=== PATIENT | female | born 1950 | race Caucasian/White ===

== ENCOUNTER 2021-01-26 10:51 | Outpatient (REF) | payer MEDICARE, OTHER, SELFPAY ==
[2021-01-26 13:38] LABS: Creatinine Urine 62.39 mg/dL; Microalbum/Creatinine Ratio Ur 11.2 ug/mg cr
[2021-01-26 13:39] LABS: Estimated Average Glucose 114 mg/dL; Hemoglobin A1c % 5.6 %
[2021-01-26 13:42] LABS: Alanine Aminotransferase 17 U/L (0-31); Alkaline Phosphatase 55 U/L (39-117); Anion Gap 13 (12-20); Aspartate Amino Transferase 22 U/L (5-31); Bilirubin Total 0.6 mg/dL (0.0-1.0); Blood Urea Nitrogen 17 mg/dL (9-16); Calcium 8.9 mg/dL (8.4-10.2); Carbon Dioxide 23 mmol/L (22-29); Chloride 107 mmol/L (96-108); Cholesterol 177 mg/dL; Estimated Glomerular Filt Rate > 60; Glucose Fasting 101 mg/dL (60-99); HDL Cholesterol 42 mg/dL; LDL Cholesterol Calculated 104 mg/dl; Potassium 4.4 mmol/L (3.3-5.1); Sodium 139 mmol/L (135-145); Total Protein 6.7 g/dL (6.5-8.0); Triglycerides 159 mg/dL
== END 2021-01-26 10:52 | disposition home or self-care (01) ==
LOC: HO.MANLDS 10:51
PROVIDERS: PCP Internal Medicine; Visit Provider Internal Medicine
DX: E11.9 Type 2 diabetes mellitus without complications (principal)
CPT/HCPCS: 36415; 80053; 80061; 82043; 83036

== ENCOUNTER 2021-06-03 10:36 | Outpatient (REF) | payer MEDICARE, OTHER, SELFPAY ==
[2021-06-04 07:33] LABS: Estimated Average Glucose 117 mg/dL; Hemoglobin A1c % 5.7 %
== END 2021-06-03 10:37 | disposition home or self-care (01) ==
LOC: HO.MANLDS 10:36
PROVIDERS: PCP Internal Medicine; Visit Provider Internal Medicine
DX: E11.9 Type 2 diabetes mellitus without complications (principal)
CPT/HCPCS: 36415; 83036

== ENCOUNTER 2021-09-06 09:14 | Outpatient (REF) | payer MEDICARE, OTHER, SELFPAY ==
[2021-09-06 11:13] LABS: Alanine Aminotransferase 20 U/L (0-31); Albumin Level 4.2 g/dL (3.5-5.0); Alkaline Phosphatase 56 U/L (39-117); Anion Gap 11 (12-20); Aspartate Amino Transferase 22 U/L (5-31); Bilirubin Total 0.5 mg/dL (0.0-1.0); Blood Urea Nitrogen 14 mg/dL (9-16); Calcium 9.4 mg/dL (8.4-10.2); Carbon Dioxide 24 mmol/L (22-29); Chloride 109 mmol/L (96-108); Cholesterol 197 mg/dL; Estimated Glomerular Filt Rate 58; Glucose Fasting 113 mg/dL (60-99); HDL Cholesterol 45 mg/dL; LDL Cholesterol Calculated 118 mg/dl; Potassium 4.1 mmol/L (3.3-5.1); Sodium 140 mmol/L (135-145); Total Protein 7.3 g/dL (6.5-8.0); Triglycerides 173 mg/dL
[2021-09-06 11:20] LABS: Estimated Average Glucose 120 mg/dL; Hemoglobin A1c % 5.8 %
[2021-09-06 15:09] LABS: Creatinine Urine 93.69 mg/dL
== END 2021-09-06 09:15 | disposition home or self-care (01) ==
LOC: HO.MANLDS 09:14
PROVIDERS: PCP Internal Medicine; Visit Provider Internal Medicine
DX: E11.9 Type 2 diabetes mellitus without complications (principal)
CPT/HCPCS: 36415; 80053; 80061; 82043; 83036

== ENCOUNTER 2022-02-03 11:34 | Outpatient (REF) | payer MEDICARE, OTHER, SELFPAY ==
[2022-02-03 13:27] LABS: Estimated Average Glucose 111 mg/dL; Hemoglobin A1c % 5.5 %
[2022-02-03 13:32] LABS: Alanine Aminotransferase 19 U/L (0-31); Albumin Level 4.3 g/dL (3.5-5.0); Alkaline Phosphatase 59 U/L (39-117); Anion Gap 13 (12-20); Aspartate Amino Transferase 24 U/L (5-31); Bilirubin Total 0.5 mg/dL (0.0-1.0); Blood Urea Nitrogen 19 mg/dL (9-16); Calcium 9.3 mg/dL (8.4-10.2); Carbon Dioxide 22 mmol/L (22-29); Chloride 109 mmol/L (96-108); Cholesterol 190 mg/dL; Estimated Glomerular Filt Rate 49; Glucose Random 98 mg/dL (60-115); HDL Cholesterol 44 mg/dL; LDL Cholesterol Calculated 124 mg/dl; Potassium 4.6 mmol/L (3.3-5.1); Sodium 139 mmol/L (135-145); Total Protein 7.4 g/dL (6.5-8.0); Triglycerides 110 mg/dL
== END 2022-02-03 11:35 | disposition home or self-care (01) ==
LOC: HO.MANLDS 11:34
PROVIDERS: PCP Internal Medicine; Visit Provider Internal Medicine
DX: E11.9 Type 2 diabetes mellitus without complications (principal)
CPT/HCPCS: 36415; 80053; 80061; 83036

== ENCOUNTER 2022-05-31 08:57 | Outpatient (REF) | payer MEDICARE, OTHER, SELFPAY ==
[2022-05-31 11:38] LABS: Estimated Average Glucose 108 mg/dL; Hemoglobin A1c % 5.4 %
[2022-05-31 11:44] LABS: Alanine Aminotransferase 22 U/L (0-31); Albumin Level 4.2 g/dL (3.5-5.0); Alkaline Phosphatase 55 U/L (39-117); Anion Gap 15 (12-20); Aspartate Amino Transferase 27 U/L (5-31); Bilirubin Total 0.8 mg/dL (0.0-1.0); Blood Urea Nitrogen 22 mg/dL (9-16); Carbon Dioxide 25 mmol/L (22-29); Chloride 105 mmol/L (96-108); Cholesterol 198 mg/dL; Estimated Glomerular Filt Rate 48; Glucose Random 106 mg/dL (60-115); HDL Cholesterol 49 mg/dL; LDL Cholesterol Calculated 122 mg/dl; Potassium 4.4 mmol/L (3.3-5.1); Sodium 141 mmol/L (135-145); Total Protein 7.2 g/dL (6.5-8.0); Triglycerides 139 mg/dL
[2022-05-31 11:58] LABS: Creatinine Urine 76.03 mg/dL; Microalbumin Urine < 5.0 mg/L
== END 2022-05-31 08:58 | disposition home or self-care (01) ==
LOC: HO.MANLDS 08:57
PROVIDERS: Visit Provider Internal Medicine
DX: E11.9 Type 2 diabetes mellitus without complications (principal)
CPT/HCPCS: 36415; 80053; 80061; 82043; 83036

== ENCOUNTER 2022-09-05 11:27 | Outpatient (REF) | payer MEDICARE, OTHER, SELFPAY ==
[2022-09-05 16:01] LABS: Alanine Aminotransferase 19 U/L (0-31); Albumin Level 4.2 g/dL (3.5-5.0); Alkaline Phosphatase 57 U/L (39-117); Anion Gap 14 (12-20); Aspartate Amino Transferase 27 U/L (5-31); Bilirubin Total 0.7 mg/dL (0.0-1.0); Blood Urea Nitrogen 21 mg/dL (9-16); Calcium 9.5 mg/dL (8.4-10.2); Carbon Dioxide 23 mmol/L (22-29); Chloride 107 mmol/L (96-108); Cholesterol 188 mg/dL; Estimated Glomerular Filt Rate 57; Glucose Random 98 mg/dL (60-115); HDL Cholesterol 48 mg/dL; LDL Cholesterol Calculated 113 mg/dl; Potassium 4.5 mmol/L (3.3-5.1); Sodium 139 mmol/L (135-145); Total Protein 6.9 g/dL (6.5-8.0); Triglycerides 136 mg/dL
[2022-09-05 16:11] LABS: Estimated Average Glucose 111 mg/dL; Hemoglobin A1c % 5.5 %
== END 2022-09-05 11:28 | disposition home or self-care (01) ==
LOC: HO.MANLDS 11:27
PROVIDERS: Visit Provider Internal Medicine
DX: E11.9 Type 2 diabetes mellitus without complications (principal)
CPT/HCPCS: 36415; 80053; 80061; 83036

== ENCOUNTER 2022-11-22 10:27 | Outpatient (REF) | payer MEDICARE, OTHER, SELFPAY ==
[2022-11-22 13:21] LABS: Estimated Average Glucose 123 mg/dL; Hemoglobin A1c % 5.9 %
== END 2022-11-22 10:28 | disposition home or self-care (01) ==
LOC: HO.MANLDS 10:27
PROVIDERS: Visit Provider Internal Medicine
DX: E11.9 Type 2 diabetes mellitus without complications (principal)
CPT/HCPCS: 36415; 83036

== ENCOUNTER 2023-03-21 08:00 | Outpatient (REF) | payer MEDICARE, OTHER, SELFPAY | END 2023-03-21 08:01 | disposition home or self-care (01) | LOC: HO.MANLDS 08:00 | PROVIDERS: Visit Provider Internal Medicine | DX: E11.9 Type 2 diabetes mellitus without complications (principal) | CPT/HCPCS: 36415; 80053; 80061; 82043; 83036 ==

== ENCOUNTER 2023-09-12 09:31 | Outpatient (REF) | payer MEDICARE, OTHER, SELFPAY ==
[2023-09-12 13:40] LABS: Estimated Average Glucose 111 mg/dL; Hemoglobin A1C 123.1192 umol/L; Hemoglobin A1c % 5.5 % (<6.0)
[2023-09-12 16:23] LABS: Alanine Aminotransferase 17 U/L (0-31); Albumin Level 3.9 g/dL (3.5-5.0); Alkaline Phosphatase 48 U/L (39-117); Anion Gap 12 (12-20); Aspartate Amino Transferase 24 U/L (5-31); Bilirubin Total 0.3 mg/dL (0.0-1.0); Blood Urea Nitrogen 18 mg/dL (9-16); Calcium 9.1 mg/dL (8.4-10.2); Carbon Dioxide 22 mmol/L (22-29); Chloride 111 mmol/L (96-108); Cholesterol 194 mg/dL (<200); Estimated Glomerular Filt Rate > 60; Glucose Random 102 mg/dL (60-115); HDL Cholesterol 56 mg/dL (>40); LDL Cholesterol Calculated 122 mg/dL (<100); Potassium 4.5 mmol/L (3.3-5.1); Sodium 140 mmol/L (135-145); Total Protein 6.9 g/dL (6.5-8.0); Triglycerides 82 mg/dL (<150)
== END 2023-09-12 09:32 | disposition home or self-care (01) ==
LOC: HO.MANLDS 09:31
PROVIDERS: Visit Provider Internal Medicine
DX: E11.9 Type 2 diabetes mellitus without complications (principal)
CPT/HCPCS: 36415; 80053; 80061; 83036

== ENCOUNTER 2024-01-01 09:27 | Outpatient (REF) | payer MEDICARE, OTHER, SELFPAY ==
[2024-01-01 14:27] LABS: Estimated Average Glucose 120 mg/dL; Hemoglobin A1c % 5.8 % (<6.0)
[2024-01-01 15:21] LABS: Alanine Aminotransferase 16 U/L (0-31); Albumin Level 3.9 g/dL (3.5-5.0); Alkaline Phosphatase 57 U/L (39-117); Anion Gap 13 (12-20); Aspartate Amino Transferase 22 U/L (5-31); Bilirubin Total 0.5 mg/dL (0.0-1.0); Blood Urea Nitrogen 16 mg/dL (9-16); Calcium 9.3 mg/dL (8.4-10.2); Carbon Dioxide 24 mmol/L (22-29); Chloride 109 mmol/L (96-108); Cholesterol 213 mg/dL (<200); Estimated Glomerular Filt Rate 57; Glucose Random 105 mg/dL (60-115); HDL Cholesterol 49 mg/dL (>40); LDL Cholesterol Calculated 133 mg/dL (<100); Potassium 4.5 mmol/L (3.3-5.1); Sodium 141 mmol/L (135-145); Triglycerides 156 mg/dL (<150)
== END 2024-01-01 09:28 | disposition home or self-care (01) ==
LOC: HO.MANLDS 09:27
PROVIDERS: Visit Provider Internal Medicine
DX: E11.9 Type 2 diabetes mellitus without complications (principal)
CPT/HCPCS: 36415; 80053; 80061; 83036

== ENCOUNTER 2024-04-22 09:13 | Outpatient (REF) | payer MEDICARE, OTHER, SELFPAY ==
[2024-04-22 14:01] LABS: Estimated Average Glucose 117 mg/dL; Hemoglobin A1c % 5.7 % (<6.0)
== END 2024-04-22 09:14 | disposition home or self-care (01) ==
LOC: HO.MANLDS 09:13
PROVIDERS: Visit Provider Internal Medicine
DX: E11.9 Type 2 diabetes mellitus without complications (principal)
CPT/HCPCS: 36415; 83036

== ENCOUNTER 2024-07-14 08:01 | Outpatient (REF) | payer MEDICARE, OTHER, SELFPAY ==
[2024-07-14 13:50] LABS: MANUAL DIFF FLAG NO
[2024-07-14 13:59] LABS: Basophils Absolute Auto 0.1 X10*3/uL (0.0-0.2); Basophils Percent Auto 0.8 % (0-2); Eosinophils Absolute Auto 0.1 X10*3/uL (0.0-0.4); Hematocrit 39.7 % (37.0-47.0); Imm Gran Abs Auto 0.01 X10*3/uL (0.00-0.03); Imm Gran Pct Auto 0.2 % (0.0-0.4); Lymphocytes Absolute Auto 1.4 X10*3/uL (1.2-4.9); Mean Corpuscular HGB Conc 32.7 g/dl (31.0-35.0); Mean Corpuscular Hemoglobin 32.3 pg (27.0-33.0); Mean Corpuscular Volume 98.5 fL (80.0-98.0); Mean Platelet Volume 10.6 fL (9.4-12.3); Monocytes Absolute Auto 0.5 X10*3/uL (0.1-1.2); Monocytes Percent Auto 7.5 % (2-11); Neutrophils Absolute Auto 3.9 x10*3/uL (2.0-8.3); Neutrophils Percent Auto 65.5 % (45-73); Platelet Count 192 X10*3/uL (160-400); Red Blood Count 4.03 X10*6/uL (4.20-5.50); Red Cell Distribution Width 13.7 % (11.0-16.0)
[2024-07-14 14:11] LABS: Estimated Average Glucose 120 mg/dL; Hemoglobin A1C 134.4986 umol/L; Hemoglobin A1c % 5.8 % (<6.0); Total Hemoglobin (HGBA1C) 3352.5407 umol/L
[2024-07-14 14:17] LABS: Alanine Aminotransferase 16 U/L (0-31); Albumin Level 3.9 g/dL (3.5-5.0); Alkaline Phosphatase 50 U/L (39-117); Anion Gap 12 (12-20); Aspartate Amino Transferase 32 U/L (5-31); Bilirubin Total 0.4 mg/dL (0.0-1.0); Blood Urea Nitrogen 19 mg/dL (9-16); Calcium 9.5 mg/dL (8.4-10.2); Carbon Dioxide 24 mmol/L (22-29); Chloride 108 mmol/L (96-108); Cholesterol 190 mg/dL (<200); Estimated Glomerular Filt Rate 59; Glucose Random 119 mg/dL (60-115); HDL Cholesterol 45 mg/dL (>40); LDL Cholesterol Calculated 114 mg/dL (<100); Potassium 4.2 mmol/L (3.3-5.1); Sodium 140 mmol/L (135-145); Total Protein 6.7 g/dL (6.5-8.0); Triglycerides 157 mg/dL (<150)
== END 2024-07-14 08:02 | disposition home or self-care (01) ==
LOC: HO.MANLDS 08:01
PROVIDERS: Visit Provider Internal Medicine
DX: E11.9 Type 2 diabetes mellitus without complications (principal); E78.00 Pure hypercholesterolemia, unspecified
CPT/HCPCS: 36415; 80053; 80061; 83036; 85025

== ENCOUNTER 2024-10-22 10:26 | Outpatient (REF) | payer MEDICARE, OTHER, SELFPAY ==
--- OUTSIDE RECORDS SUMMARY | 2024-10-22 11:23 | XMS_ITS | Clinical Summary ---
Author Organization [facility] Address [address] [place] [address] Care Team Providers Care Clinical Genetics Laboratory Chief Name Role Phone Armin Rueda Primary Care Provider [phone] Allergies Active Allergy Reactions Criticality Noted Date Comments Lqkyqfo-Ejm-Ujk Reductase Inhibitors Muscle Pain,Other (see comments) Medium 04/26/2024 Pt states she gets sciatica pain down her legs Medications lisinopriL (PRINIVIL,ZESTRI L) 40 mg tablet Take 40 mg by mouth daily. Active metFORMIN (GLUCOPHAGE) 1,000 mg tablet Take 2,000 mg by mouth nightly. Active cetirizine (ZyrTEC) 10 mg capsule capsule Take by oral route. Active Ozempic 1 mg/dose (4 mg/3 mL) pen injector Inject 1 mg under the skin once a week. Active metoprolol tartrate (LOPRESSOR) 50 mg tablet Take 1 tablet by mouth 2 times daily. Active rivaroxaban (XARELTO) 20 mg tablet Take 1 tablet (20 mg total) by mouth once a day. 90 tablet 3 05/26/2024 Active Active Problems Problem Noted Date Diagnosed Date Rheumatic fever 05/26/2024 Paroxysmal atrial fibrillation 01/23/2024 Type 2 diabetes mellitus without complication (C MS/HCC) 03/27/2023 Sleep apnea 06/14/2021 Positive colorectal cancer screening using Colog uard test 09/08/2020 Spinal stenosis of lumbar region 12/24/2018 Hypercholesterolemia 08/27/2018 Hypertensive disorder 05/01/2018 Encounters Date Type Department Care Team Description 08/13/2024 9:56 AM EST - 08/13/2024 11:59 PM EST Hospital Encounter [facility] Cardiac Ultrasound [address] [place] [address] Nazia Moore MD Paroxysmal atrial fibrillation (HCC) Discharge Disposition: Home or Self Care (01) from Last 3 Months Social History Tobacco Use Types Packs/Day Years Used Date Smoking Tobacco: Never Smokeless Tobacco: Never Alcohol Use Standard Drinks/Week Comments Never 0 (1 standard drink = 0.6 oz pur e alcohol) Comments No Sex and Gender Information Value Date Recorded Sex Assigned at My sex is not list ed (please specify) 08/12/2024 12:06 PM EST Legal Sex Female 8:28 AM EDT Gender Identity Female 01/21/2024 4:15 PM EDT Sexual Orientation Straight 08/12/2024 12 :06 PM EST Last Filed Vital Signs Vital Sign Reading Time Taken Comments Blood Pressure 164/84 05/26/2024 10:31 AM EDT Pulse 82 05/26/2024 10:31 AM EDT Temperature 36.8 ??C (98.2 ??F) 01/21/2024 6:09 PM ED T Respiratory Rate 18 05/26/2024 10:31 AM EDT Oxygen Saturation 94% 05/26/2024 10:31 AM EDT Inhaled Oxygen Concentration - - Weight 117.5 kg (259 lb) 08/13/2024 9:59 AM EST Height 172.7 cm (5' 8 ) 08/13/2024 9:59 AM EST Body Mass Index 39.38 08/13/2024 9:59 AM EST Plan of Treatment Upcoming Encounters Date Type Department Care Team (Late st Contact Info) Description 07/06/2025 11:20 AM EDT Follow-Up [facility] 4th floor Cardiology Medicine [address] [place] [address] Supervisor Hand Silvering: Nazia Hurst MD [address] [place] [address] Health Maintenance Due Date Last Done Comments Hepatitis C Screening 1950 Ophthalmology Exam 1958 Osteoporosis Screening 1998 Zoster Vaccines (2 of 3) 11/11/2013 09/16/2013 RSV Vaccine (60+ years old and patients) (1 - 1-dose 75+ series) 2023 Hemoglobin A1C 12/27/2023 06/27/2023, 09/18, 09/28/2016, Additional history exists COVID-19 Vaccine ( season) 2024 07/29/2022, 12/16/2021, 06/24/2021, Additional history exists Influenza Vaccine (#1) 2024 , 06/22/2022, 07/01/2021, Additional history exists Urine Microalbumin 06/27/2024 06/27/2023 Alcohol/Substance Use Screening 09/17/2024 Depression Screening and Follow-Up 09/17/2024 Health Care Proxy Review 09/17/2024 Social Drivers of Health Annual Screening 09/17/2024 Basic Metabolic Panel 01/20/2025 01/21/2024 , 06/27/2023, 09/28/2016 DTaP,Tdap,and Td Vaccines (2 - Td or Tdap) 10/20/2025 10/20/2015 Colonoscopy 01/27/2026 01/27/2021, 01/15, 01/27/2021, Additional history exists Mammogram Discontinued 05/31/2007 Pneumococcal Vaccine: 65+ Years Completed 04/10/2017, 03/05/2015 Hepatitis B Vaccines Aged Out No long er eligible based on patient's age to complete this topic Procedures * Due to [place] state law, this organization might not be sharing negative HIV tests. Procedure Name Priority Date/Time Associated Diagnosis Comments TRANSTHORACIC ECHO (TTE) COMPLETE Routine 08/13/2024 10:40 AM EST Paroxysmal atrial fibrillation (HCC) BASIC METABOLIC PANEL STAT 01/21/2024 12:10 PM EDT COLONOSCOPY 01/27/2021 HEMOGLOBIN A1C Routine 09/28/2016 9:07 AM EST ROZINA BILATERAL SCREENING DIGITAL MAMMOGRAM Routine 05/31/2007 2:03 PM EDT from Last 3 Months or Most Recently Relevant to Health Maintenance Results * Due to [place] state law, this organization might not be sharing negative HIV tests. * TRANSTHORACIC ECHO (TTE) COMPLETE (08/13/2024 10:40 AM EST) BSA 2.37 m2 LVIDD 4.7 cm LVIDS 2.7 cm IVS 0.7 cm LVOT diameter 2.3 cm LVOT area 4.15 cm2 Relative Wall Thickness 0.39 PW 0.9 cm LV Mass Index 51 g/m2 MV Peak E Mariano 0.92 m/s MV avg E/e' 11.41 MV Peak A Mariano 1.44 m/s E/A ratio 0.60 Lateral e' 0.09 m/s E wave deceleration time 215.0 msec Septal e' 0.07 m/s MV E/E' Tissue Velocity Lateral 10.53 LA Volume Index 37 mL/m2 MV E/e' septal 12.45 LVOT peak mariano 0.98 m/s LVOT stroke volume 97 cm3 LV stroke vol index 40.7 mL/m2 TAPSE 2.2 cm LVOT peak VTI 24.13 cm Ascending aorta 3.0 cm Ao-asc Z score -1.17 IVC proximal 1.8 cm LV ED Post Wall 0.90 LV ES Dimension 2.70 LV ED Dimension 4.70 Aortic Valve Diam 2.3 cm RIGHT ATRIAL PRESSURE 3 mmHg Sinus 3.4 cm Aortic Root Z-score -0.44 Dummy BSA 2.28 LV mass 121 EF 74 Anatomical Region Laterality Modality Heart Echocardiography Narrative 08/13/2024 11:34 AM EST ?Normal left ventricular size and systolic function, LVEF 60%. ?Mildly dilated left atrium. ?No significant valvular disease identified. Left Ventricle The left ventricle size is normal. Normal left ventricular wall thickness. No segmental wall motion abnormalities detected, although this possibility cannot be fully excluded based on the images available. Normal left ventricular systolic function. Left ventricular ejection fraction is in the normal range with visually estimated LVEF 60%. Unable to assess left ventricular diastolic function due to conflicting data. Right Ventricle Right ventricle size is normal. Normal right ventricular systolic function. TAPSE is normal (>=1.7 cm). Tissue Doppler peak systolic velocity is normal (>9.5 cm/s). Left Atrium Left atrium is mildly dilated. Right Atrium Right atrium is normal in size. IVC/SVC IVC diameter is less than or equal to 21 mm and decreases greater than 50% during inspiration; therefore the estimated right atrial pressure is normal (~3 mmHg). Mitral Valve Mildly thickened mitral leaflets. Mild mitral annular calcification. Trace mitral regurgitation. No mitral stenosis. Tricuspid Valve Tricuspid valve structure is normal. Trace tricuspid regurgitation. No tricuspid stenosis. Aortic Valve Aortic valve not well visualized. No aortic regurgitation. No aortic stenosis. Pulmonic Valve Pulmonic valve not well visualized. Trace pulmonic regurgitation. No pulmonic stenosis. Ascending Aorta The ascending aorta is normal. Pericardium There is prominent pericardial fat. No pericardial effusion. Pulmonary Artery TR jet was inadequate to estimate pulmonary artery pressure. Atrial Septum No interatrial shunt detected by color flow Doppler. Ventricular Septum Ventricular septum is intact. Normal septal motion. Study Details A complete echo was performed using 2D imaging, color flow Doppler and complete spectral Doppler. During the study the apical, parasternal, subcostal and suprasternal view was captured. Overall the study quality was good. The study was technically difficult. The study was difficult due to patient's body habitus. STRESS ECHO OVERALL FINDINGS No significant valvular disease identified. Wall Scoring Baseline Score Index: 1.00 The left ventricular wall motion is normal. Nazia Moore MD CV ECHO PROCEDURES Fin al Result * (ABNORMAL) Basic Metabolic Panel (01/21/2024 12:10 PM EDT) NA 140 135 - 145 mmol/L 01/21/2024 1:03 PM EDT [facility] K 4.1 3.5 - 5.3 mmol/L 01/21/2024 1:03 PM EDT [facility] Cl 107 97 - 110 mmol/L 01/21/2024 1:03 PM EDT [facility] CO2 25 24 - 32 mmol/L 01/21/2024 1:03 PM EDT [facility] BUN 19 7 - 23 mg/dL 01/21/2024 1:03 PM EDT [facility] Creatinine 1.25(H) 0.50 - 1.20 mg/dL 01/21/2024 1:03 PM EDT [facility] Glucose 147(H) 70 - 99 mg/dL 01/21/2024 1:03 PM EDT [facility] Calcium 8.6(L) 8.7 - 10.7 mg/dL 01/21/2024 1:03 PM EDT [facility] [employer] [employer] [facility] Anion Gap 8 5 - 15 01/21/2024 1:03 PM EDT [facility] eGFR 45(L) >=60 mL/min/1 .73m2 01/21/2024 1:03 PM EDT [facility] Comment:The estimated glomer ular filtration rate (eGFR) is calculated using a new formula developed by the NKF-ASN task force to eliminate race-based correction factors. The new formula uses serum/plasma creatinine, age, and gender to determine eGFR. A value below 60mls/min might indicate kidney disease and will be flagged. For additional information, see Quinton et al, Am J Kidney Dis. 2021;79(2):268- 288, A Unifying Approach for GFR estimation: Recommendations of the NKF-ASN Task Force on Reassessing the Inclusion of Race in Diagnosing Kidney Disease . Blood Structure of peripheral vein / Unknown Venipuncture / Unknown 01/21/2024 12:10 PM EDT 01/21/2024 12:24 PM EDT us Protocol Unv Adult Treatment MD LAB BLOOD ORDERA BLES Final Result [facility] [address] [place] [address], [place] * COLONOSCOPY (01/27/2021) Narrative Procedure Note Roberto Garcia MD - 01/27/2021 12:33 PM EDT Gastroenterology Patient Name: Bren Urrutia Procedure Date: 01/27/2021 12:33 PM Date of : 1950 Admit Type: Outpatient Age: 70 Room: [place] [address] Gender: Female Note Status: Finalized Attending MD: Roberto Garcia MD Procedure: Colonoscopy Indications: Positive Cologuard test Comorbidities Providers: Roberto Garcia MD Referring MD: Armin Rueda MD (Referring MD) Requesting Provider: Medicines: Monitored Anesthesia Care Complications: No immediate complications. Estimated Blood Loss: None. Procedure: Pre-Anesthesia Assessment: - Prior to the procedure, a History and Physical was performed, and patient medications, allergies and sensitivities were reviewed. The patient's tolerance of previous anesthesia was reviewed. - The risks and benefits of the procedure and thesedation options and risks were discussed with the patient. All questions were answered and informed consent wasobtained. - Patient identification and proposed procedure were verified prior to the procedure by the physician, the nurse, the professor sculpture and the analytical technician. Theprocedure was verified in the procedure room. After I obtained informed consent, the scope was passed under direct vision. Throughout the procedure, the patient's blood pressure, pulse, and oxygen saturations were monitored continuously. The Colonoscope was introduced through the anus and advanced to the cecum, identified by appendiceal orifice and ileocecal valve.The colonoscopy was extremely difficult due to a redundant colon, significant looping and a tortuous colon. Successful completion of the procedure was aided byusing manual pressure. Findings: The perianal and digital rectal examinations were normal. A 2 mm, non-bleeding polyp was found in the ascending colon. Thepolyp was sessile. The polyp was removed with a cold biopsy forceps.Resection and retrieval were complete. A 3 mm, non-bleeding polyp was found in the rectum. The polyp was sessile. The polyp was removed with a cold snare. Resection and retrieval were complete. Multiple small-mouthed diverticula were found in the left colon. Internal hemorrhoids were found during retroflexion. The hemorrhoids were medium-sized. The exam was otherwise without abnormality on direct and retroflexion views. Impression: - One 2 mm, non-bleeding polyp in the ascending colon, removed with a cold biopsy forceps. Resected andretrieved. - One 3 mm, non-bleeding polyp in the rectum, removedwith a cold snare. Resected and retrieved. - Diverticulosis in the left colon. - Internal hemorrhoids. - The examination was otherwise normal on direct and retroflexion views. Recommendation: - The patient will be observed post-procedure, untilall discharge criteria are met. - Discharge patient to home. - Resume previous diet. - Continue present medications. - Repeat colonoscopy in 5 years for surveillance basedon pathology results. Roberto Garcia MD Roberto Garcia MD 01/27/2021 1:50:27 PM This report has been signed electronically. Number of Addenda: 0 Note Initiated On: 01/27/2021 12:33 PM CC Letter to: Armin Rueda MD (CC) us Roberto Garcia MD PROVATION PROCEDURES Final Resu lt * (ABNORMAL) Hemoglobin A1c (09/28/2016 9:07 AM EST) Hemoglobin A1C 11.4(H) <5.7 [facility] Comment: UNITS OF MEASURE: % of total Hgb According to ADA guidelines, hemoglobin A1c <7.0% represents optimal control in non- diabetic patients. Different metrics may apply to specific patient populations. Standards of Medical Care in Diabetes-2013. Diabetes Care. 2013;36:s11-s66 For the purpose of screening for the presence of diabetes <5.7% ? Consistent with the absence of diabetes 5.7-6.4% ?Consistent with increased risk for diabetes ?(prediabetes) >or=6.5% ?Consistent with diabetes This assay result is consistent with diabetes mellitus. Currently, no consensus exists for use of hemoglobin A1c for diagnosis of diabetes for children. eAG (MG/DL) 280 () (calc) [facility] eAG (MMOL/L) 15.5 () (calc) [facility] 09/28/2016 9:07 AM EST 09/28/2016 10:36 AM EST us Armin [employer] LAB BLOOD ORDERABLES Final Resul t [facility] [address] [facility] 3rd Floor, [place] [address], [place] * ROZINA Bilateral Screening Digital Mammogram (05/31/2007 2:03 PM EDT) Anatomical Region Laterality Modality Breast Bilateral Mammography 05/31/2007 2:00 PM EDT Impressions 06/05/2007 11:32 AM EDT BILATERAL BREASTS - CATEGORY 2 Benign, no evidence of malignancy. Normal interval follow-up is recommended in 12 months. OVERALL ASSESSMENT - BENIGN END OF IMPRESSION Narrative 06/05/2007 11:32 AM EDT No comparison films were available at the time of this reading. Bilateral Breast Findings: There are scattered fibroglandular densities. Multiple small circumscribed oval masses are present. Scattered amorphous and punctate calcifications are present. No significant masses, suspicious calcifications or other abnormalities are seen. Procedure Note Meg Talbot H - 07/03/2017 No comparison films were available at the time of this reading. Bilateral Breast Findings: There are scattered fibroglandular densities. Multiple small circumscribed oval masses are present. Scattered amorphous and punctate calcifications are present. No significant masses, suspicious calcifications or other abnormalities are seen. IMPRESSION: BILATERAL BREASTS - CATEGORY 2 Benign, no evidence of malignancy. Normal interval follow-up is recommended in 12 months. OVERALL ASSESSMENT - BENIGN END OF IMPRESSION Armin Rueda IMG BI PROCEDURES Final Result from Last 3 Months or Most Recently Relevant to Health Maintenance Insurance MEDICARE [facility] Advance Directives Documents on File Type Date Recorded Patient Bdr Expl anation Advance Directive 07/08/2010 12:00 AM sf Medical Dec Making (Adv.Dir) * Full Code (Latest Code Status on File) Date Activated Date Inactivated Comments 01/27/2021 2:00 PM 01/27/2021 4:52 PM Care Teams Clinical Genetics Laboratory Chief Relationship Specialty Start Date End Date Armin Rueda [address] [place] [address] PCP - General 04/05/17"
--- OUTSIDE RECORDS SUMMARY | 2024-10-22 11:23 | XMS_ITS | Referral Summary ---
Author Organization [facility] Address [address] [place] [address] Care Team Providers Care Produce Service Team Member Name Role Phone Armin Rueda Primary Care Provider [phone] Encounters Date Type Department Care Team Description 08/13/2024 9:56 AM EST - 08/13/2024 11:59 PM EST Hospital Encounter [facility] Cardiac Ultrasound [address] [place] [address] Nazia Moore MD Paroxysmal atrial fibrillation (HCC) Discharge Disposition: Home or Self Care () from Last 3 Months Allergies Active Allergy Reactions Criticality Noted Date Comments Qzccjdn-Mak-Uxu Reductase Inhibitors Muscle Pain,Other (see comments) Medium [...] region 12/24/2018 Hypercholesterolemia 08/27/2018 Hypertensive disorder 05/01/2018 Social History Tobacco Use Types Packs/Day Years [...] Info) Description 07/06/2025 11:20 AM EDT Follow-Up [facility] Building 4th floor Cardiology Medicine [address] [place] [address] Materials Buyer: Nazia Hurst MD [address] [place] [address] Procedures * Due to [place] state law, this organization might not be [...] to Health Maintenance Results * Due to [place] state law, this organization might not be [...] The left ventricular wall motion is normal. us Nazia Moore MD CV ECHO PROCEDURES Fin al Result * (ABNORMAL) Basic Metabolic Panel (01/21/2024 12:10 PM EDT) NA 140 135 - 145 mmol/L 01/21/2024 1:03 PM EDT [facility] K 4.1 3.5 - 5.3 mmol/L 01/21/2024 1:03 PM EDT [facility] Cl 107 97 - 110 mmol/L 01/21/2024 1:03 PM EDT [facility] CO2 25 24 - 32 mmol/L 01/21/2024 1:03 PM EDT [facility] BUN 19 7 - 23 mg/dL 01/21/2024 1:03 PM EDT [facility] Creatinine 1.25(H) 0.50 - 1.20 mg/dL 01/21/2024 1:03 PM EDT [facility] Glucose 147(H) 70 - 99 mg/dL 01/21/2024 1:03 PM EDT [facility] Calcium 8.6(L) 8.7 - 10.7 mg/dL 01/21/2024 1:03 PM EDT [facility] Anion Gap 8 5 - 15 01/21/2024 1:03 PM EDT [email or web address] eGFR 45(L) >=60 mL/min/1 .73m2 01/21/2024 1:03 PM ED [facility] Comment:The estimated glomer ular [...] MD LAB BLOOD ORDERA BLES Final Result [facility] [address] [place] [address], [place] * COLONOSCOPY (01/27/2021) Narrative Procedure Note Roberto Garcia MD - 01/27/2021 12:33 PM EDT Gastroenterology Patient Name: Bren Urrutia Procedure Date: 01/27/2021 12:33 PM Date of : 1950 Admit Type: Outpatient Age: 70 Room: [place] [address] Gender: Female Note Status: Finalized Attending MD: [...] procedure by the physician, the nurse, the roll tension tester and the financial services technician. Theprocedure was verified in the procedure [...] CC Letter to: Armin Rueda MD (CC) Roberto Garcia MD PROVATION PROCEDURES Final Resu lt * (ABNORMAL) Hemoglobin A1c (09/28/2016 9:07 AM EST) Hemoglobin A1C 11.4(H) <5.7 [facility] Comment: UNITS OF MEASURE: % of total [...] for children. eAG (MG/DL) 280 () (calc) [facility] eAG (MMOL/L) 15.5 () (calc) [facility] 09/28/2016 9:07 AM EST 09/28/2016 10:36 AM EST us Armin Rueda LAB BLOOD ORDERABLES Final Resul t [facility] [address] [facility] 3rd Floor, [place] [address], [place] * ROZINA Bilateral Screening Digital Mammogram [...] ASSESSMENT - BENIGN END OF IMPRESSION Armin [facility] IM BI PROCEDURES Final Result from Last 3 Months or Most Recently Relevant to Health Maintenance Insurance [facility]ICARE [facility] Advance Directives Documents on File Type Date Recorded Patient Clarifier Operator Helper Expl yoli Advance Directive 07/08/2010 12:00 AM sf Medical Dec Making (Adv.Dir) * Full Code (Latest Code Status on File) Date Activated Date Inactivated Comments 01/27/2021 2:00 PM 01/27/2021 4:52 PM Care Teams Produce Service Team Member Relationship Specialty Start Date End Date Armin Rueda [address] [place] [address] PCP - General 04/05/17
--- OUTSIDE RECORDS SUMMARY | 2024-10-22 11:23 | XMS_ITS | Data Portability ---
Author Organization [facility] Address [address] [place] [address] Assessment Encounter Date Assessment Date Assessment LastModified by Organization Details LastModified Time 09/21/2023 09/21/2023 [id number] [place] [id number] (NANNY BABYSITTER) [facility] MODERATE MUST MEET 2 OUT OF 3 ELEMENTS: PROBLEMS, DATA OR RISK ELEMENT 1: PROBLEMS ADDRESSED 1 OR MORE CHRONIC ILLNESS WITH EXACERBATION OR 2 OR MORE STABLE CHRONIC ILLNESSES OR 1 UNDIAGNOSED NEW PROBLEM OR 1 ACUTE ILLNESS W/SYMPTOMS OR 1 ACUTE COMPLICATED INJURY ELEMENT 2: DATA MUST MEET 1 OF 3 CATEGORIES CATEGORY 1: REVIEW OF PRIOR EXTERNAL NOTES, REVIEW OF RESULTS, ORDERING OF EACH TEST, ASSESSMENT REQUIRING INDEPENDENT HISTORIAN OR CATEGORY 2: INDEPENDENT INTERPRETATION OF TESTS BY ANOTHER PHYSICIAN OR SPECIALIST OR CATEGORY 3: DISCUSSION OF MGT OR TEST INTERPRETATION W/EXTERNAL PHYSICIAN OR SPECIALIST ELEMENT 3: RISK RISK OF COMPLICATIONS AND/OR MORBIDITY OR MORTALITY OF PATIENT MANAGEMENT PROVIDER MUST THOROUGHLY DOCUMENT EACH ELEMENT THAT IS COVERED Not available 09/21/2023 10:56:03 01/08/2024 01/08/2024 [id number] [place] [id number] (NANNY BABYSITTER) [facility] MODERATE MUST MEET 2 OUT OF 3 ELEMENTS: PROBLEMS, DATA OR RISK ELEMENT 1: PROBLEMS ADDRESSED 1 OR MORE CHRONIC ILLNESS WITH EXACERBATION OR 2 OR MORE STABLE CHRONIC ILLNESSES OR 1 UNDIAGNOSED NEW PROBLEM OR 1 ACUTE ILLNESS W/SYMPTOMS OR 1 ACUTE COMPLICATED INJURY ELEMENT 2: DATA MUST MEET 1 OF 3 CATEGORIES CATEGORY 1: REVIEW OF PRIOR EXTERNAL NOTES, REVIEW OF RESULTS, ORDERING OF EACH TEST, ASSESSMENT REQUIRING INDEPENDENT HISTORIAN OR CATEGORY 2: INDEPENDENT INTERPRETATION OF TESTS BY ANOTHER PHYSICIAN OR SPECIALIST OR CATEGORY 3: DISCUSSION OF MGT OR TEST INTERPRETATION W/EXTERNAL PHYSICIAN OR SPECIALIST ELEMENT 3: RISK RISK OF COMPLICATIONS AND/OR MORBIDITY OR MORTALITY OF PATIENT MANAGEMENT PROVIDER MUST THOROUGHLY DOCUMENT EACH ELEMENT THAT IS COVERED Not available 01/08/2024 14:28:00 01/23/2024 01/23/2024 [id number] [place] [id number] (NANNY BABYSITTER) [facility] MODERATE MUST MEET 2 OUT OF 3 ELEMENTS: PROBLEMS, DATA OR RISK ELEMENT 1: PROBLEMS ADDRESSED 1 OR MORE CHRONIC ILLNESS WITH EXACERBATION OR 2 OR MORE STABLE CHRONIC ILLNESSES OR 1 UNDIAGNOSED NEW PROBLEM OR 1 ACUTE ILLNESS W/SYMPTOMS OR 1 ACUTE COMPLICATED INJURY ELEMENT 2: DATA MUST MEET 1 OF 3 CATEGORIES CATEGORY 1: REVIEW OF PRIOR EXTERNAL NOTES, REVIEW OF RESULTS, ORDERING OF EACH TEST, ASSESSMENT REQUIRING INDEPENDENT HISTORIAN OR CATEGORY 2: INDEPENDENT INTERPRETATION OF TESTS BY ANOTHER PHYSICIAN OR SPECIALIST OR CATEGORY 3: DISCUSSION OF MGT OR TEST INTERPRETATION W/EXTERNAL PHYSICIAN OR SPECIALIST ELEMENT 3: RISK RISK OF COMPLICATIONS AND/OR MORBIDITY OR MORTALITY OF PATIENT MANAGEMENT PROVIDER MUST THOROUGHLY DOCUMENT EACH ELEMENT THAT IS COVERED Not available 01/23/2024 10:36:39 02/13/2024 02/13/2024 Patient presente d for medication refill. Patient tolerating medication well at current dose without adverse effects. Refilled as below. Discussed plan with patient, who expressed understanding. Follow up as noted below. Not available 02/13/2024 11:41:42 07/18/2024 07/18/2024 Patient presente d to office today for their Medicare Annual Wellness Visit. Education was provided on healthy nutrition, including a diet rich in fruits and vegetables, minimizing simple carbohydrates, salt, and saturated fats. Encouraged regular cardiovascular exercise such as walking at least 30 minutes daily, 5 times per week. Emphasized preventive health measures and educated pt on fall prevention and community-based lifestyle interventions to help reduce health risks and promote healthy living. Not available 04/16/2024 14:10:51 Plan of Treatment Reminders Order Date Submit Date Provider Last Modified By Organization Details Last Modified Time Details Appointments FOLLOW UP 15 2024 01:45P M DR HANSON Not available Not available Not available Lab lipid panel, blood 2023 024 [facility], [address] [place] [address], [place], [address], 07/18/2024 13:53:52 hemoglobi n, gastroint estinal, stool 2023 024 [facility], [address] [place] [address], [place], [address], 07/18/2024 13:53:52 CBC w/ auto diff 2023 [facility], [address] [place] [address], [place], [address], 07/18/2024 13:53:52 CMP, serum or plasma 2023 [facility], [address] [place] [address], [place], [address], 07/18/2024 13:53:52 Referral None recorded. Procedures None recorded. Surgeries None recorded. Imaging MAMMO, screening , digital, bilateral 2023 [facility], [address] [place] [address], [id number], 08/01/2024 08:20:19 Medication Orders metoprolo l tartrate 25 mg tablet [address] [id number], [address] [place] [address], [id number], 02/13/2024 10:59:27 Xarelto 10 mg tablet 2023 024 [id number], [address] [place] [address], [id number], 07/18/2024 13:28:09 ezetimibe 10 mg tablet 2023 024 [facility][id number], [address] [place] [address], [id number], 07/18/2024 13:46:42 Patient TargetsNo targets recorded. Patient Instructions Encounter Date Encounter Id Patient Instructions Last Modified By Organization Details Last Modified Time 07/18/2024 [id number] Discussed and explained advance directives such as standard forms to the {{patient caregiv er patient and caregiver}}. Face to face discussion lasted for a duration of ___ minutes. Not available 04/16/2024 14:10:51 Reason for Referral None Reported. Results Created Date Observation Date Name Description Value Unit Range Abnormal Flag Note LastModifiedBy Organization Detail LastModifiedTime 08/13/20 24 08/13/2024 trans -thor acic echoc ardio gram (TTE) (PROC ) No observ ation record ed. [facility] (Cardiac Ultrasound) [address] [place], [address], 08/13/2024 11:41:32 Result Notes None recorded. Problems Name Problem SNOMED Code Status Onset Date Resolution Date Notes Provider Name and Address Organization Details Recorded Time Type 2 diabetes mellitus 84693105 Active 2017 Aby garduno [facility] 8 08:45:08 Celiac disease 708264409 Active 2017 Aby garduno [facility] 8 08:45:14 Hypertensi ve disorder 57412683 Active 2017 Aby garduno [facility] 8 08:45:18 Cataract 530363931 Active 2017 Aby garduno [facility] 8 08:45:28 Edema of lower extremity 002207013 Active 2017 Aby garduno [facility] 8 08:45:33 Bunion 004061586 Active 2017 Aby garduno [facility] 8 08:45:39 Hyperchole sterolemia 45137260 Active 2017 Armin Hanson DO [address] [place] [address], [phone], [facility] [place] 8 14:13:39 Sacrum sprain 615932468 Active 2018 Armin Hanson DO [address] [place] [address], [phone], [facility] [place] 9 14:18:29 Sciatica 32375498 Active 2018 Armin Hanson, DO [address] [place] [address], [address], [facility] [place] 9 14:19:03 Spinal stenosis of lumbar region 97557537 Active 2018 Armin Hanson, DO [address] [place] [address], [phone], [facility] [place] 9 14:22:19 Sleep apnea 49163247 Active 2020 Armin Hanson, DO [address] [place] [address], [phone], [facility] [place] 1 14:07:48 Knee joint painful on movement 761776881 Active 2020 Armin Hanson, DO [address] [place] [address], [phone], [facility] [place] 1 14:11:49 Diabetes mellitus 40928666 [facility] 2 11:40:14 Acute sinusitis 99727574 Active 2022 LUCIO ZAVALA [address] [place] [address], [phone], [facility] 3 14:01:07 Postviral cough 217859761 Active 2022 Armin Hanson, DO [address] [place] [address], [phone], [facility] [place] 3 13:48:23 Type 2 diabetes mellitus without complicati on 432525150 Active 2022 Armin Hanson, DO [address] [place] [address], [phone], [facility] [place] 3 13:50:40 COVID-19 454472882 Active 2022 LUCIO ZAVALA [address] [place] [address], [address], [facility] [place] 3 09:29:27 Acute conjunctiv itis 38263376 Active 2023 Armin Hanson, DO [address] [place] [address], [address], [facility] [place] 4 14:55:12 Paroxysmal atrial fibrillati on 696948364 Active 2023 Armin Hanson DO [address] [place] [address], [address], [facility] 4 10:33:50 Problem Notes None recorded. Procedures Surgical History Date Name Laterality Status Provider Name and Address Organization Details Recorded Time 01/28/20 21 Colonoscopy completed Armin HansonDO [address] [place] [address], [phone], [facility] 01/27/2021 16:03:29 Imaging Results Imaging Date Name Status LastModified by Organization Details LastModified Time 08/13/2024 trans-thoracic echocardiogram (TTE) (PROC) completed [facility] (Cardiac Ultrasound) [address] [place], [address], 08/13/2024 11:41:32 Procedure Notes None recorded. Medical Equipment None Reported. Allergies Allergen ID Allergen Name Allergen Category Reaction Reaction Severity Criticality Documentation Date Start Date Code Code System Note Provider Name and Address Organization Details Recorded Time 2646 Product containin g 3-hydroxy -3-methyl glutaryl- coenzyme A reductase inhibitor (product) medicatio n myalgias (muscle pain) Not available Not available 09/18/2018 15444 009 SNOMED incre ased blood sugar s Aby Etienne [facility] 9 14:59:08 Medications Name Sig Start Date Stop Date Status Note LastModified by Organization Details LastModified Time celecoxib 200 mg capsule Take 1 capsule every day by oral route. 12/24 completed Not Available Not Available Not Available amoxicillin 500 mg capsule TAKE 1 CAPSULE BY MOUTH THREE TIMES DAILY FOR 10 DAYS 11/20 completed Not Available Not Available Not Available metformin 500 mg tablet TAKE 1 TABLET BY MOUTH TWICE DAILY 07/18 completed Not Available Not Available Not Available atorvastati n 10 mg tablet Take 1 tablet every day by oral route for 30 days. 12/24 completed Not Available Not Available Not Available azithromyci n 250 mg tablet TAKE 2 TABLETS (500 MG) BY ORAL ROUTE ONCE DAILY FOR 1 DAY THEN 1 TABLET (250 MG) BY ORAL ROUTE ONCE DAILY FOR 4 DAYS 07/18 completed Not Available Not Available Not Available ciprofloxac in 500 mg tablet TAKE 1 TABLET BY MOUTH EVERY 12 HOURS FOR 10 DAYS 01/22 completed Not Available Not Available Not Available amoxicillin 500 mg tablet TAKE 2 TABLETS BY MOUTH TO START THEN 1 TABLET EVERY 8 HOURS UNTIL ALL TAKEN active Not Available Not Available No t Available benzonatate 100 mg capsule 07/18 completed Not Available Not Available Not Available erythromyci n 5 mg/gram (0.5 %) eye ointment APPLY 1 CM RIBBON INTO THE LOWER CONJUNCTI VENITA SAC(S) IN THE AFFECTED EYE(S) BY OPHTHALMI C ROUTE 3 TIMES PER DAY for 7 days 02/02 completed Not Available Not Available Not Available metformin 1,000 mg tablet TAKE 1 TABLET BY MOUTH TWICE DAILY 2023 active Not Available Not Available Not Avai lable neomycin-po lymyxin-dex ameth 3.5 mg/mL-10,00 0 unit/mL-0.1 % eye drops INSTILL 1 DROP INTO AFFECTED EYE(S) BY OPHTHALMI C ROUTE EVERY 3-4 HOURS 01/22 completed Not Available Not Available Not Available metoprolol tartrate 50 mg tablet TAKE 1 TABLET BY MOUTH TWICE DAILY 2023 active Not Available Not Available Not Avai lable Aspir-81 mg tablet,pedro yed release Take 1 tablet every day by oral route. active Not Available Not Available No t Available methylpredn isolone 4 mg tablets in a dose pack FOLLOW PACKAGE DIRECTION S 07/18 completed Not Available Not Available Not Available lisinopril 40 mg tablet TAKE 1 TABLET BY MOUTH EVERY DAY 2023 active Not Available Not Available Not Avai lable amoxicillin 875 mg-potassiu m clavulanate 125 mg tablet TAKE 1 TABLET BY MOUTH EVERY 12 HOURS FOR 7 DAYS 01/22 completed Not Available Not Available Not Available ezetimibe 10 mg tablet TAKE 1 TABLET BY MOUTH EVERY DAY active Not Available Not Available No t Available metoprolol tartrate 25 mg tablet TAKE 1 TABLET BY MOUTH TWICE DAILY active Not Available Not Available No t Available Acidophilus qd active Not Available Not A vailable Not Available fiber qd active Not Available Not Availa ble Not Available Stool Softener qd active Not Available Not Available Not Available multivitami n active Not Available Not Available Not Available Zyrtec 10 mg capsule Take by oral route. active Not Available Not Available No t Available OneTouch Delica Lancets 33 gauge TEST TWICE DAILY active Not Available Not Available No t Available BD Ultra-Fine Amy Pen Needle 32 gauge x /32 Use 1 needle subcutane ously at bedtime active Not Available Not Available No t Available Xarelto 10 mg tablet TAKE 1 TABLET BY MOUTH EVERY DAY 07/18 completed Not Available Not Available Not Available Xarelto 20 mg tablet active Not Available Not Available No t Available OneTouch Verio test strips USE TO TEST TWICE DAILY active Not Available Not Available No t Available Basaglar KwikPen U-100 Insulin 100 unit/mL (3 mL) subcutaneou s inject 62 units subcutane ously once daily 02/24 completed Not Available Not Available Not Available Ozempic 1 mg/dose (2 mg/1.5 mL) subcutaneou s pen injector INJECT 1 MG EVERY WEEK UNDER THE SKIN DIRECTED 11/20 completed Not Available Not Available Not Available Ozempic 0.25 mg or 0.5 mg (2 mg/1.5 mL) subcutaneou s pen injector Inject 1 mg every week by subcutane ous route for 30 days. 11/20 completed Not Available Not Available Not Available Fluzone High-Dose (PF) 180 mcg/0.5 mL intramuscul ar syringe 08/27 completed Not Available Not Available Not Available OneTouch Delica Plus Lancet 30 gauge USE TO TEST BLOOD SUGARS TWICE DAILY active Not Available Not Available No t Available Fluzone High-Dose (PF) 180 mcg/0.5 mL intramuscul ar syringe 07/22 completed Not Available Not Available Not Available OneTouch Verio Reflect Meter USE TO TEST BLOOD SUGAR TWICE A DAY 11/20 completed Not Available Not Available Not Available Ozempic 1 mg/dose (4 mg/3 mL) subcutaneou s pen injector INJECT 1 MG UNDER THE SKIN ONCE EVERY WEEK DIRECTED active Not Available Not Available No t Available BinaxNOW COVID-19 Ag Self Test kit TEST DIRECTED TODAY 03/27 completed Not Available Not Available Not Available Paxlovid 300 mg (150 mg x 2)-100 mg tablets in a dose pack TK 2 NIRMATREL VIR TS AND 1 RITONAVIR T TOGETHER PO TWICE DAILY 01/22 completed Not Available Not Available Not Available Lagevrio 200 mg capsule (EUA) TAKE 4 CAPSULES BY MOUTH EVERY 12 HOURS FOR 5 DAYS 07/18 completed Not Available Not Available Not Available Vitals Date Recorded Body height Body mass index (BMI) Body weight Heart rate Oxygen saturation Oxygen saturation in Arterial blood by Pulse oximetry Systolic blood pressure Diastolic blood pressure Provider Name and Address Organization Details Last Updated DateTime 4 172.72 cm 39.5 kg/m2 282642. 02 g 92 /min 97 % 97 % 136 mm[Hg] 78 mm[Hg] [facility] 4 13:57:33 Date Recorded Body height Body mass index (BMI) Body weight Heart rate Respiratory rate Oxygen saturation Oxygen saturation in Arterial blood by Pulse oximetry Systolic blood pressure Diastolic blood pressure Provider Name and Address Organization Details Last Updated DateTime 4 172.72 cm 39 kg/m2 111007. 8 g 84 /min 18 /min 98 % 98 % 138 mm[Hg] 86 mm[Hg] [facility] 4 10:21:17 Date Recorded Body height Body mass index (BMI) Body weight Heart rate Respiratory rate Oxygen saturation Oxygen saturation in Arterial blood by Pulse oximetry Systolic blood pressure Diastolic blood pressure Provider Name and Address Organization Details Last Updated DateTime 4 172.72 cm 38.2 kg/m2 039289. 48 g 72 /min 16 /min 99 % 99 % 118 mm[Hg] 76 mm[Hg] [facility] 4 11:03:13 Date Recorded Body height Body mass index (BMI) Body weight Heart rate Oxygen saturation Oxygen saturation in Arterial blood by Pulse oximetry Systolic blood pressure Diastolic blood pressure Provider Name and Address Organization Details Last Updated DateTime 4 172.72 cm 40.3 kg/m2 100066. 98 g 82 /min 98 % 98 % 138 mm[Hg] 86 mm[Hg] Dc Ling [facility] 4 13:29:39 Social History Question Answer Notes LastModified by Organizat ion Details LastModified Time Tobacco Smoking Status Former Smoker @ 14yo [facility]24 10:23:29 What Was The Date Of Your Most Recent Tobacco Screening? 07/18/2024 [email or web address] Information not available 07/18/2024 Do You Or Have You Ever Used Any Other Forms Of Tobacco Or Nicotine? No Information not available 11/20/2022 Sex: Unknown Functional Status None recorded. Mental Status None recorded. Family History Nothing Reported. Medical History No medical history recorded. Gynecological HistoryNo gynecological history recorded. Obstetrics History GPAL:G 0 P 0 0 0 0 Immunizations Vaccine Type Date Status Note Provider Nam e and Address Organization Details Recorded Time COVID-19, mRNA, LNP-S, PF, 30 mcg/0.3 mL dose 1 [facility]2022 08:17:28 COVID-19, mRNA, LNP-S, PF, 30 mcg/0.3 mL dose 2 completed Mariza Lopez [facility] 02/28/2022 08:17:36 Influenza, split virus, quadrivalent, preservative 1 [facility] 02/28/2022 08:17:53 Influenza, split virus, quadrivalent, preservative 8 completed Aby garduno [facility] 08/27/2018 14:20:16 zoster live 3 completed Aby garduno [facility] 08/27/2018 14:18:25 Pneumococcal conjugate PCV 13 5 dagoberto garduno [facility] 08/28/2018 13:57:46 pneumococcal polysaccharide PPV23 7 completed Aby garduno [facility] 08/28/2018 13:57:57 Influenza, split virus, quadrivalent, preservative 0 completed Pattie Betancourticki shaan [facility] 06/08/2020 10:56:58 Influenza, split virus, quadrivalent, preservative 9 completed [facility] 07/22/2019 13:51:31 Tdap 6 completed Aby Etienne shaan [facility] 02/01/2021 09:53:19 COVID-19, mRNA, LNP-S, PF, 30 mcg/0.3 mL dose 1 dagoberto Etienne shaan [facility] 02/01/2021 09:53:46 COVID-19, mRNA, LNP-S, PF, 30 mcg/0.3 mL dose 1 completed Aby Etienne shaan [facility] 02/01/2021 09:53:51 Past Encounters Encounter ID Performer Location Encounter Start Date Encounter Closed Date Diagnosis/Indication Diagnosis SNOMED-CT Code Diagnosis ICD10 Code Diagnosis Note [id number] Armin Hanson [facility] [address] [facility],[place] [address] 05/01/2018 15:10:53 05/01/2018 16:26:29 Hypertensive disorder 95563156 I10 stable and doing ok Type 2 bharat betes mellitus 20502691 E11.9 a1c is 5.5 and doing ok but has gained some wgt Edema of l ower extremity 945494509 R60.0 currently ius doing oik no bad swelling [id number] Armin Hanson [facility] [address] [facility],[place] [address] 08/27/2018 13:38:36 08/27/2018 15:37:08 Hypertensive disorder 46004130 I10 stable and doing ok Type 2 bharat betes mellitus 81786006 E11.9 a1c is 5.5 and doing ok but has gained some wgt Hypercholesterolemia 136 25075 E78.00 [place] [id number] Armin Hanson [facility] [address] [facility],[place] [address] 11/15/2018 14:51:27 11/15/2018 15:28:14 Lumbago with sciatica 783781020 M54.41 has marked discomfort now with examinatio n of her and will get her an MRI pain is intractabl e and she is now getting right leg muscle weakness and her leg is giving out on her seems to have a diminished achilles DTR [id number] Armin Hanson [facility] [address] [facility],[place] [address] 12/24/2018 13:39:45 12/24/2018 14:51:27 Adult health examination 404611584 Z00.01 relates that she is doing ok but her low back is the most problem as the morning is especially bad overall seems to be sl better with moving and coping with her low back pain Active or passive immunization 663189029 Z23 [id number] Armin Hanson [facility] [address] [facility],[place] [address] 04/07/2019 11:10:34 04/07/2019 12:16:34 Type 2 diabetes mellitus 21057620 E11.9 a1c is 5.6 and doing ok Hypertensive disorder 38 637278 I10 stable and doing ok Hepatitis C screening 41 3270105 Z11.59 next lab Osteopenia 836158154 M85 .80 [id number] Armin Hanson [facility] [address] [facility],[place] [address] 07/22/2019 13:48:19 07/22/2019 14:39:19 Type 2 diabetes mellitus 69285655 E11.9 a1c is 5.6 and doing ok Hypercholesterolemia 136 74577 E78.00 atorvastat in not tolerated Hypertensive disorder 38 219946 I10 stable and doing ok Esophageal dysphagia 408 45095 R13.19 will order test Obstructiv e sleep apnea syndrome 55282102 G47.33 given afib episodes and symptoms of apnea and snoring will refer her [id number] Armin Hanson [facility] [address] [facility], [place] [address] 10/28/2019 13:16:08 10/28/2019 14:31:56 Hypercholesterolemia 29731110 E78.00 atorvastat in not tolerated Type 2 bharat betes mellitus 89527659 E11.9 a1c is 6.2 and doing ok but her diet is a chocolate diet and this is because of her stress with grandson Hypertensive disorder 38 478316 I10 stable and doing ok [id number] Armin Hanson [facility] [address] [facility],[place] [facility] [place] [address] 02/25/2020 10:45:54 02/25/2020 12:01:42 Hypercholesterolemia 57410882 E78.00 atorvastat in not tolerated Hypertensive disorder 38 255615 I10 stable and doing ok but it has been elevated today Type 2 bharat betes mellitus 15624769 E11.9 a1c is 5.4 !!!!!!!!an d doing ok and ozempic has worked incredible [id number] Armin Hanson [facility] [address] [facility],[place] [facility] [place] [address] 06/08/2020 10:45:14 06/08/2020 13:39:54 Administration of influenza vaccine 06832990 Z23 [id number] Armin Hanson [facility] [address] [facility],[place] [address] 06/14/2020 10:30:10 06/14/2020 11:54:01 Type 2 diabetes mellitus 47201469 E11.9 a1c is 5.4 !!!!!!!!an d doing ok and ozempic has worked incredible we will stop the metformin! !! rechk in 3 mo Hypertensive disorder 38 225401 I10 stable and doing ok but it has been elevated today Edema of l ower extremity 784873572 R60.0 currently ius doing ok no bad swelling Hypercholesterolemia 136 01555 E78.00 LDL is 120 doing great with diet and exercise Screening for malignant neoplasm of colon 245452101 Z12.11 [id number] Armin Hanson [facility] [address] [facility] [address],[place] [address] 10/18/2020 08:42:03 10/18/2020 13:32:19 Hypertensive disorder 68626128 I10 stable and doing ok but it has been elevated on occ but she is careful and watching Edema of l ower extremity 224145970 R60.0 currently ius doing ok no bad swelling Type 2 bharat betes mellitus 51748167 E11.9 a1c is 6.2 was 5.4 !!!!!!!!an d doing ok and ozempic has worked incredible [place] [id number] Arm[facility]on [facility] [facility] [address] [facility], [place] [address] 02/02/2021 13:19:40 02/02/2021 14:21:08 Adult health examination 095537487 Z00.00 relates that she is doing ok but her low back is the most problem as the morning is especially bad overall seems to be sl better with moving and coping with her low back pain Screening for malignant neoplasm of colon 053777716 Z12.11 had colonoscop y had one tubular adenoma Screening mammography 24 240951 Z12.31 refused [id number] Armin Hanson [facility] [address] [facility], [place] [address] 06/14/2021 08:14:24 06/14/2021 15:06:55 Edema of lower extremity 528812122 R60.0 currently ius doing ok no bad swelling Hypercholesterolemia 136 34336 E78.00 LDL is 120 doing great with diet and exercise Hypertensive disorder 38 378855 I10 stable and doing ok but it has been elevated on occ but she is careful and watching Type 2 bharat betes mellitus 86270190 E11.9 a1c is 6.2 was 5.4 !!!!!!!!an d doing ok and ozempic has worked incredible will watch if this cont to go uprecent eye exam good and has had neg retinopath y eval recently Sleep apnea 45804071 G47 .30 doing really well and wearing mask every night Knee joint painful on movement 009505786 M25.569 will cont with neoprene brace [id number] Armin Hanson [facility] [address] [facility],[place] [address] 11/11/2021 07:56:55 11/14/2021 14:00:43 Hypertensive disorder 37127990 I10 stable and doing ok but it has been elevated on occ but she is careful and watching Type 2 bharat betes mellitus 94776589 E11.9 a1c is now 5.6 but was 6.2 was 5.4 !!!!!!!!an d doing ok and ozempic has worked incredible will watch if this cont to go uphas not been too good with diet lately and has gained wgtrecent eye exam good and has had neg retinopath y eval recently [id number] Armin Hanson, [facility] [address] [facility],[address] [address] [facility] [place] [address] 03/06/2022 12:02:40 03/10/2022 08:08:55 Hypertensive disorder 70391576 I10 stable and doing ok but it has been elevated on occ but she is careful and watching Type 2 bharat betes mellitus 02135209 E11.9 a1c is now 5.5 !!!!!! 5.6 but was 6.2 was 5.4 !!!!!!!!an d doing ok and ozempic has worked incredible will watch if this cont to go upshe has lost 33 # of wgtrecent eye exam good and has had [place] [address] day 110 Edema of l ower extremity 783980337 R60.0 currently is doing ok no bad swelling [id number] Armin Hanson, [facility] [address] [facility],[place] [address] [facility] [place] [address] 06/09/2022 13:17:39 06/09/2022 15:52:16 Type 2 diabetes mellitus 65364301 E11.9 a1c is now 5.4 and was 5.5 !!!!!! 5.6 but was 6.2 was 5.4 !!!!!!!!an d doing ok and ozempic has worked incredible will watch if this cont to go upshe has lost another 10 lbrecent eye exam good and has had [place] [address] day 110 Hypertensive disorder 38 995026 I10 stable and doing ok but it has been elevated on occ but she is careful and watching Sleep apnea 25048525 G47 .30 doing really well and wearing mask every night Edema of l ower extremity 932601373 R60.0 currently is doing ok no bad swelling [id number] Armin Hanson, [facility] [address] [facility],[place] [address] 11/20/2022 13:59:23 11/20/2022 15:21:21 Active or passive immunization 172358736 Z23 Adult heal th examination 641837133 Z00.00 relates that she is doing ok but her low back is the most problem as the morning is especially bad overall seems to be sl better with moving and coping with her low back pain Type 2 bharat betes mellitus 70776799 E11.9 a1c is 5.5 prior 5.4 and was 5.5 !!!!!! 5.6 but was 6.2 was 5.4 !she has gained another 10 lbrecent eye exam good and has [place] [address] day 115 Hepatitis C screening 41 7822186 Z11.59 next lab Advance care planning 71 0240473 Z71.89 done Screening mammography 24 951969 Z12.31 needs [id number] Armin Hanson, [facility] [address] [facility],[place] [address] 03/27/2023 13:28:05 03/27/2023 14:37:58 Sleep apnea 71654642 G47.30 doing really well and wearing mask every night Hypertensive disorder 38 148640 I10 stable and doing ok but it has been elevated on occ but she is careful and watching Type 2 bharat betes mellitus 09075426 E11.9 a1c is 5.3 now!!!!!! was 5.5 prior 5.4 and was 5.5 !!!!!! 5.6 but was 6.2 was 5.4 !she has lost another 20 lbrecent eye exam good and has [place]g [address] day 115 Hepatitis C screening 41 3677784 Z11.59 next lab Advance care planning 71 6770614 Z71.89 done Screening mammography 24 065086 Z12.31 needs Postviral cough 11932570 4 R05.3 will try netti pot or flonase if not helpful will get a cxr Type 2 bharat betes mellitus without complication 123358377 E11.9 doing fantastic [id number] Armin Hanson, [facility] [address] [facility] [address],[place] [address] [facility] [place] [address] 07/03/2023 13:38:23 07/03/2023 14:33:32 Hypercholesterolemia 74192664 E78.00 LDL is 120 doing great with diet and exercise Diabetes mellitus 728348 09 E11.9 a1c is 5.9 Edema of l ower extremity 226439753 R60.0 currently is doing ok no bad swelling Hypertensive disorder 38 455271 I10 stable and doing ok but it has been elevated on occ but she is careful and watching [id number] Armin Hanson, [facility] [address] [facility],[place] [address] 09/21/2023 08:42:50 09/21/2023 11:14:17 Hypercholesterolemia 64715334 E78.00 LDL is 120 doing great with diet and exercise Hypertensive disorder 38 391400 I10 stable and doing ok but it has been elevated on occ but she is careful and watching Type 2 bharat betes mellitus 91716753 E11.9 a1c is 5.5 was 5.3 now!!!!!! was 5.5 prior 5.4 and was 5.5 !!!!!! 5.6 but was 6.2 was 5.4 !admits to having been not so good with diet and relates that she gained weightover all doing fine as evidenced by her a1c [id number] Armin Hanson [facility] [address] [facility] [address],[place] [address] 01/08/2024 13:44:11 01/08/2024 15:31:12 Type 2 diabetes mellitus without complication 204417641 E11.9 doing fantastic Hypercholesterolemia 136 42780 E78.00 LDL is 120 doing great with diet and exercise Hypertensive disorder 38 697141 I10 stable and doing ok but it has been elevated on occ but she is careful and watching Type 2 bharat betes mellitus 65989325 E11.9 a1c is 5.5 was 5.3 now!!!!!! was 5.5 prior 5.4 and was 5.5 !!!!!! 5.6 but was 6.2 was 5.4 !admits to having been not so good with diet and relates that she gained weightover all doing fine as evidenced by her a1c [id number] Armin Ruelas Marybeth [facility] [address] [facility], [place] [address] 01/23/2024 10:00:00 01/23/2024 14:05:41 Depression screening 946467455 Z13.31 Neg Screening Paroxysmal atrial fibrillation 525389085 I48.0 will start carvedilol and eliquis stop the asawill have her see cardiologi st [id number] Armin Davidmargarita [facility] [address] [facility], [place] [address] 02/13/2024 10:46:17 02/13/2024 12:23:11 Renewal of prescription 677687945 Z76.0 utd Hypertensive disorder 38 985182 I10 stable and doing ok but it has been elevated on occ but she is careful and watching Depression screening 171 798941 Z13.31 Neg Screening Paroxysmal atrial fibrillation 204139656 I48.0 now in nsr !!!!! doing great and tolerating the metoprolol and xareltowe will cont she has cardiology appt but not until may a devan feng Type 2 bharat betes mellitus without complication 264853083 E11.9 doing fantastic Edema of l ower extremity 410145114 R60.0 currently is doing ok no bad swelling [id number] Armin Davidmargarita [facility] [address] [facility], [place] [address] 07/18/2024 13:20:48 07/18/2024 14:13:32 Adult health examination 482739833 Z00.00 she relates that this last covid infection took a lot out her still slowly recovering relates that she is doing ok but her low back is the most problem as the morning is especially bad overall seems to be sl better with moving and coping with her low back pain Screening for cardiovascular system disease 698050827 Z13.6 Screening for malignant neoplasm of colon 525394610 Z12.11 had colonoscop y had one tubular adenoma Screening mammography 24 152891 Z12.31 needs Hypertensive disorder 38 900406 I10 stable and doing ok but it has been elevated on occ but she is careful and watching Type 2 bharat betes mellitus 72172303 E11.9 a1c is 5.8 was 5.3 now!!!!!! was 5.5 prior 5.4 and was 5.5 !!!!!! 5.6 but was 6.2 was 5.4 !admits to having been not so good with diet and relates that she gained weightover all doing fine as evidenced by her a1c Paroxysmal atrial fibrillation 342022772 I48.0 now in nsr !!!!! doing great and tolerating the metoprolol and xareltowe will cont she has cardiology appt but not until sept a devan feng Hypercholesterolemia 136 77830 E78.00 LDL is 120 doing great with diet and exercise Health Concerns Section Related Observation LastModified by Organization Detai ls LastModified Time None Recorded Concern Status LastModified by Organization Details LastModified Time None Recorded Advance Directives Directive None Recorded Payers Encounter Date Sequence Insurance Name Policy Number Policy Macdonald Covered Member ID Macdonald Member ID Guarantor Name 09/21/2023 1 [place] [employer] Bren S Renan [id number] Bren Renan 09/21/2023 2 [employer] INDEMNITY PLAN - [employer] [id number] Bren E Renan [id number] Bren Renan 01/08/2024 1 [place] [employer] Bren S Renan [id number] Bren Renan 01/08/2024 2 [employer] IN[employer]MNITY PLAN - [employer] [id number] Bren E Renan [id number] Bren Renan 01/23/2024 1 [place]: [employer] Bren S Renan [id number] Bren Renan 01/23/2024 2 [employer] PLAN - [employer] [id number] Bren E Renan [id number] Bren Renan 02/13/2024 1 [place]: [employer] Bren S Renan [id number] Bren Renan 02/13/2024 2 [employer] IN[employer]ITY PLAN - [employer] [id number] Bren E Renan [id number] Bren Renan 07/18/2024 1 [place] [facility] Bren Urrutia [id number] Bren Urrutia 07/18/2024 2 [facility] [id number] Bren Urrutia [id number] Bren Urrutia Notes Date Note Type Note Provider Name and Address Organization Details Recorded Time 4 text/htm l Care Management - DiabetesReported bypatient.Self Care:seeing eye doctor yearly for dilated eye exam; checking feet regularly; normal range of home blood sugars (in the low 100s); no side effects from medications Associated Symptoms:symptoms are usually well controlled; no fatigue; no dizziness; no excessive sweating; no headaches; no confusion; no increased thirst; no increased appetite; no increased urination; no blurred vision; no numbness of feet; no calluses on feetCare Management - HypertensionReported bypatient.Self Care:not under emotional stress Severity:symptoms are improving; does not interfere with daily activities Associated Symptoms:no dizziness; no lightheadedness; no chest pain; no shortness of breath; no palpitations; no edema; no calf muscle cramps; no blurred vision; no confusion; no headaches; no fatigue patient is evaluated via tele/video assessment per patient consentduring current pandemicreviewed labhas gained weight but her a1c is 5.5. relates is bck to 250#sblames on the holidayshad stopped the intermittent relates she has had several bouts of muscle spasm in her hand and occurs when she has been using hand a lot Armin Hanson, DO [address] [facility], [place], [address], [facility] 09/21/2023 11:03:06 4 text/htm l Care Management - DiabetesReported bypatient.Self Care:seeing eye doctor yearly for dilated eye exam; checking feet regularly; normal range of home blood sugars (in the low 100s); no side effects from medications Associated Symptoms:symptoms are usually well controlled; no fatigue; no dizziness; no excessive sweating; no headaches; no confusion; no increased thirst; no increased appetite; no increased urination; no blurred vision; no numbness of feet; no calluses on feetCare Management - HypertensionReported bypatient.Self Care:not under emotional stress Severity:symptoms are improving; does not interfere with daily activities Associated Symptoms:no dizziness; no lightheadedness; no chest pain; no shortness of breath; no palpitations; no edema; no calf muscle cramps; no blurred vision; no confusion; no headaches; no fatigue doing welll but has gained 15lbsstays active Armin Hanson, DO [address] [place], [address], [facility], [place] 01/08/2024 14:30:39 4 text/htm l relates had epsiode of middle of night with muscle spasm in leg , then she drank plenty of fluids 'next day had normal day and had a big meal at lunch then flet more fatigue than usualwoke up sunday and didnt feel well she checked her pulse and was crazy with no rhythm and machine said poss afib sunday sx had not resolvedwent to ERhad lab and ecg which states on er report was rapid afib Armin Hanson, DO [address] [place], [address], [facility], [place] 01/23/2024 10:45:39 4 text/htm l reviewed her log re bp and pulse it seemed after a week of metoprolol and increased dose her symptoms stopped and pulse cme down and bp came downreviewed entire log Armin HansonDO [address] [place], [address], [facility], [place] 02/13/2024 11:43:50 4 text/htm l Medicare Annual Wellness VisitReported bypatient.Diet and Nutrition:healthy diet Fracture Risk:no history of fractures; no recent explained fracture; no sudden unexplained fractures; no previous musculoskeletal injuries Physical Activity:good physical condition;does not exercise on a regular basis;decreased physical activity;deconditioned due to sedentary lifestyle Depression Risk:never feels sad, empty, or tearful; no loss of interest in activities; no significant changes in weight; no sleep disturbances or insomnia; no agitation; no loss of energy; no feelings of worthlessness or guilt; no thoughts of suicide; no history of depression; no history of mood disorders Orientation:no disorientation to time; no disorientation to date; no disorientation to place Concentration and Memory:no decreased concentrating ability; no memory lapses or loss; does not forget words Speech/Motor difficulties:no speech difficulties; no difficulty expressing formulated concepts; no difficulty with fine manipulative tasks; no difficulty writing/copying; no slowed reaction time; does not knock things over when trying to pick them up Hearing:no loss of hearing Vision:no vision problems Activities of Daily Living:able to bathe with limited or no assistance; able to contol urination and bowels; able to dress with limited or no assistance; able to feed self with limited or no assistance; able to get out of chair or bed with limited or no assistance; able to groom with limited or no assistance; able to toilet with limited or no assistance Instrumental Activities of Daily Living:able to do house work with limited or no assistance; able to grocery shop with limited or no assistance; able to manage medications with limited or no assistance; able to manage money with limited or no assistance; able to prepare meals with limited or no assistance; able to use the phone with limited or no assistance Falls Risk Assessment:no frequent falls while walking; no fall in the past year; no fall since last visit; no dizziness/vertigo Home Safety:no unsafe evelin hazzards; no unsafe stairs; no unsafe gas appliances; working smoke/CO detectors; wears protective head gear for biking/high velocity; use of seatbelts; practicing 'safer sex'; no vision or hearing loss while driving; no fire arms; has hand bars in the bathroom/shower; good lighting in the home Armin Hanson DO [address] [place], [address], [facility], [place] 07/18/2024 13:47:02 OBGyn Episode No OBEpisode recorded.
--- OUTSIDE RECORDS SUMMARY | 2024-10-22 11:23 | XMS_ITS | Clinical Summary ---
Author Organization [facility] Address [address] [place] [address] Care Team Providers Care Wool Shearing Supervisor Name Role Phone Armin Rueda Primary Care Provider [phone] Allergies Active Allergy Reactions Criticality Noted Date Comments Atorvastatin Other Medium 04/26/2024 Pt states she gets sciatica pain down her legs Medications Lisinopril 40 MG Tab 1 TABLET DAILY Active MetFORMIN HCl 1000 MG TabIndications:U pper respiratory tract infection, unspecified type 1 TABLET TWICE DAILY WITH FOOD Active Insulin Glargine (BASAGLAR KWIKPEN) 100 UNIT/ML Solution Pen-injector None Entered Acti ve Semaglutide (Ozempic, 1 MG/DOSE,) 4 MG/3ML prefilled pen INJECT 1 MG UNDER THE SKIN ONCE EVERY WEEK DIRECTED Active Cetirizine HCl (ZyrTEC Allergy) 10 MG Cap Take by oral route. Active Metoprolol Tartrate (LOPRESSOR) 50 MG tablet Take 1 tablet by mouth 2 (two) times a day. Active Rivaroxaban (Xarelto) 10 MG tablet Take 1 tablet by mouth 1 (one) time each day. Active Sulfamethoxazole -Trimethoprim (Bactrim DS) 800-160 MG per tablet Take one tablet by mouth 2 (two) times a day for 7 days. 14 tablet 11/27/19 25 Active Active Problems No known active problems Encounters Date Type Department Care Team Description 09/27/2024 3:15 PM EST Office Visit [address] [phone] Anaya Keith NP Dysuria (Primary Dx); Hematuria, unspecified type from Last 3 Months Immunizations Name Administration Dates Next Due COVID-19, mRNA (Pfizer Pre F all 2022) Monovalent, 30 mcg/0.3 ml 06/24/2021,12/08/2020,11/17/2020 Covid-19, mRNA (Pfizer Pre F all 2022) Bivalent, 30 mcg/0.3 ml justin-sucrose (12+) dose 07/29/2022 Covid-19, mRNA (Pfizer Pre F all 2022) Monovalent, 30 mcg/0.3 ml justin-sucrose (12+) 12/16/2021 Influenza, Quad, Inactivated , Adjuvanted, Preser Fr 07/01/2021 Influenza,high dose seasonal,trivalent,PF (Fluzone HD) 05/14/2019,07/27/2018,05/03/2017,2015 Influenza,high-dose, Quadrivalent 08/20/2023,02/2022 Influenza,injectable,quad,pr eservativ e 06/08/2020 Influenza,seasonal,trivalent ,preserva tive (FLUZONE MDV) 06/17/2014,09/30/2012 PPV23 (Pneumovax) 04/10/2017 Tdap 10/20/2015 Zoster (Zostavax) 09/16/2013 Social History Tobacco Use Types Packs/Day Years Used Date Smoking Tobacco: Never Smokeless Tobacco: Never Tobacco Cessation:Counseling Given: Not Answered Alcohol Use Standard Drinks/Week Comments No 0 (1 standard drink = 0.6 oz pur e alcohol) Intimate Partner Violence Answer Date R ecorded Fear of Current or Ex-Partner Not on file Emotionally Abused Not on file 05/09/2023 Physically Abused Not on file 05/09/2023 Sexually Abused Not on file 05/09/2023 Feel Safe at Home Not on file 05/09/2023 Comments No Sex and Gender Information Value Date Recorded Sex Assigned at Not on file Legal Sex Female 10:15 AM EDT Gender Identity Not on file Sexual Orientation Not on file Last Filed Vital Signs Vital Sign Reading Time Taken Comments Blood Pressure 176/84 09/27/2024 3:55 PM EST Pulse 97 09/27/2024 3:53 PM EST Temperature 36.9 ??C (98.5 ??F) 09/27/2024 3:53 PM ES T Respiratory Rate 18 04/26/2024 4:08 PM EDT Oxygen Saturation 97% 04/26/2024 4:08 PM EDT Inhaled Oxygen Concentration - - Weight 127 kg (280 lb) 08/20/2015 2:45 PM EST Height 177.8 cm (5' 10 ) 08/20/2015 2:45 PM EST Body Mass Index 40.18 08/20/2015 2:45 PM EST Plan of Treatment Health Maintenance Due Date Last Done Comments Hepatitis C Screening 1950 Bone Density 2013 Zoster (Shingrix) (2 of 3) 11/11/2013 09/16/2013 Pneumococcal 50+ years (2 of 2 - PCV) 04/10/2018 04/10/2017 Colon Cancer Screening 07/06/2023 07/06/2020 RSV (1 - 1-dose 75+ series) 2023 COVID-19 Vaccine ( season) 2024 07/29/2022, 12/16/2021, 06/24/2021, Additional history exists Influenza (#1) 2024 08/20/2023, 02/2022, 07/01/2021, Additional history exists DTaP/Tdap/Td (2 - Td or Tdap) 10/20/2025 10/20/2015 Zoster (Zostavax) Discontinued 09/16/2013 Cologuard Dates Discontinued 06/29/2020 LDL Cholesterol Discontinued 06/27/2023, 06/17, 10/12/2020 HPV Vaccine Aged Out No longer eligi ble based on patient's age to complete this topic Hep A Aged Out No longer eligi ble based on patient's age to complete this topic Hep B Aged Out No longer eligi ble based on patient's age to complete this topic Hib Aged Out No longer eligi ble based on patient's age to complete this topic Mammogram/Breast Imaging Discontinued Meningococcal ACWY Aged Out No longer eligible based on patient's age to complete this topic Pap Smear Discontinued Procedures * Due to [place] state law, this organization might not be sharing negative HIV tests. Procedure Name Priority Date/Time Associated Diagnosis Comments URINALYSIS, MICROSCOPIC STAT (All results called to provider) 09/27/2024 6:16 PM EST Hematuria, unspecified type CULTURE, URINE, ROUTINE Routine 09/27/2024 6:16 PM EST Hematuria, unspecified type URINALYSIS, DIP STICK/TABLET REAGENT; AUTOMATED, W/O MICROSCOPY Routine 09/27/2024 3:55 PM EST Dysuria from Last 3 Months Results * Due to [place] state law, this organization might not be sharing negative HIV tests. * CULTURE, URINE, ROUTINE (09/27/2024 6:16 PM EST) Bacteria culture (Urine) SEE NOTE [facility] Comment: ??CULTURE, URINE, ROUTINE ??Micro Number: ?[id number] ??Test Status: ? Final ??Specimen Source: ?? Urine ??Specimen Quality: ??Adequate ??Result: ?Mixed genital rafael isolated. These superficial ? bacteria are not indicative of a urinary tract ? infection. No further organism identification is ? warranted on this specimen. If clinically ? indicated, recollect clean-catch, mid-stream ? urine and transfer immediately to Urine Culture ? Transport Tube. 09/27/2024 6:16 PM EST 09/28/2024 2:15 AM EST Narrative Resulting Agency Comment [id number] us Anaya Keith NP LABORATORY Final Result [facility] [address] [place] [address] * (ABNORMAL) URINALYSIS, MICROSCOPIC (09/27/2024 6:16 PM EST) WBC (Urine) 0-5 < OR = 5 /HPF [facility] RBC (Urine Sed) 20-40(A) < OR = 2 /HPF [facility] Epithelial cells.squamous (Urine sed) NONE SEEN < OR = 5 /HPF [facility] Bacteria (Urine) NONE SEEN NONE SEEN /HPF [facility] Hyaline casts (Urine sed) NONE SEEN NONE SEEN /LPF [facility] Service comment 01 See Below [facility] Comment: This urine was analyzed for the presence of WBC, RBC, bacteria, casts, and other formed elements. Only those elements seen were reported. 09/27/2024 6:16 PM EST 09/28/2024 2:15 AM EST Narrative Resulting Agency Comment [id number] us Anaya Keith NP LAB SAME DAY RESULT Final Result Performing Organization Address [facility] Co de Phone Number [facility] [address] [place] [address] * (ABNORMAL) [facility] URINALYSIS (09/27/2024 3:55 PM EST) Color (Urine) Nataliya(A) YELLOW [facility] Clarity Cloudy(A) Clear [facility] Leukocyte Negative Negative [facility] Nitrite Negative Negative [facility]NA[facility] Urobilinogen (Urine) 0.2 0-1 E.U./dL [facility] ANALYZ[facility] Protein 100(A) Negative [facility] ANALYZER PH (Urine) 6.0 5.0 - 8.0 [facility] ANALYZ[facility] Blood (Urine) Large(A) Negative [facility] ANALYZER Specific [place] (Urine) 1.020 1.005 - 1.030 [facility] ANALYZER Ketones (Urine) Negative Negative [facility] ANALYZER Bilirubin (Urine) Negative Negative [facility] ANALYZ[facility] Glucose (Urine) Negative Negative [facility] ANALYZER 09/27/2024 3:55 PM EST 09/27/2024 3:55 PM EST Narrative [facility] ANALYZER - 09/27/2024 3:55 PM EST SN#:[id number] Location:[facility] [place] us Anaya Keith NP LAB SAME DAY RESULT Final Result Performing Organization Address [facility]/ZIP Co de Phone Number [facility] ANALYZER from Last 3 Months Insurance MEDICARE PART B [facility] MEDICARE EX[employer]ION [employer] [address] [place] [address] MEDICARE EXTENSION SUPPLEMENTAL Care Teams Wool Shearing Supervisor Relationship Specialty Start Date End Date Armin Rueda [facility] [address] [place] [id number] PCP - General Internal Medicine 01/03/14
--- OUTSIDE RECORDS SUMMARY | 2024-10-22 11:23 | XMS_ITS | Encounter Summary ---
Author Organization [facility] Address [address] [place] [address] Care Team Providers Care Store Administrator Name Role Phone Armin Rueda Primary Care Provider [phone] Reason for Visit * Reason Comments Vaginal Discharge/itch Encounter Details Date Type Department Care Team (Late st Contact Info) Description 09/27/2024 3:15 PM EST [facility] [address] [place] [address] Anaya Keith, MARCELINO [address] [place] [address] Dysuria (Primary Dx); Hematuria, unspecified type Social History Tobacco Use Types Packs/Day Years [...] on file Sexual Orientation Not on file documented as of this encounter Last Filed Vital Signs Vital Sign Reading Time Taken Comments Blood Pressure 176/84 09/27/2024 3:55 PM EST Pulse 97 09/27/2024 3:53 PM EST Temperature 36.9 ??C (98.5 ??F) 09/27/2024 3:53 PM ES T Respiratory Rate - - Oxygen Saturation - - Inhaled Oxygen Concentration - - Weight - - Height - - Body Mass Index - - documented in this encounter Progress Notes * Angelina Cervantes - 09/27/2024 3:15 PM EST Pt is here with c.o vaginal bleeding that started an hour ago. * Jesenia Pereira LVN LPN - 09/27/2024 3:15 PM EST Results for orders placed or performed in visit on 09/27/24 [facility] URINALYSIS Result Value Ref Range Color (Urine) Nataliya (A) YELLOW Clarity Cloudy (A) Clear Leukocyte Negative Negative Nitrite Negative Negative Urobilinogen (Urine) 0.2 0-1 E.U./dL Protein 100 (A) Negative PH (Urine) 6.0 5.0 - 8.0 Blood (Urine) Large (A) Negative Specific [place] (Urine) 1.020 1.005 - 1.030 Ketones (Urine) Negative Negative Bilirubin (Urine) Negative Negative Glucose (Urine) Negative Negative Completed Urine DIP for patient. * Anaya Keith NP - 09/27/2024 3:15 PM ESTSummary: hematuria, if no uti on cx pt needs to f/u with pcp Reason for Visit: Chief Complaint 74 y.o. female presents with: Vaginal Discharge/itch Academic Affairs Manager offered to patient and patient declined. HPI: Bren is a 74 y.o. female presenting for evaluation of vaginal bleeding Started about an hour ago. Went to the bathroom and noticed some bleeding on the pad she uses, then noticed pink discolorationin the toilet. Denies pain with urination Does have some urinary incontinence, when she stands up or walks around at baseline. No abdominal pain Denies frequency, or urgency. Is on xarelto for atrial fibrilation No fevers, chills, n/v/d, abd pain, back pain, flank pain or any other associated symptoms ROS: As listed above and below Physical Exam: Blood pressure (!) 176/84, pulse 97, temperature 98.5 ??F (36.9 ??C), temperature source Oral. General Appearance: awake, alert, oriented x 3, in no acute distress Skin: there are no suspicious lesions or rashes of concern Head/face: NCAT Back: no cvat Urogen: external genitalia without lesions or rash, , vagina without lesions or discharge, specifically no bleeding noted, cervix normal in appearance Data Reviewed Results for orders placed or performed in visit on 09/27/24 [facility] URINALYSIS Result Value Ref Range Color (Urine) Nataliya (A) YELLOW Clarity Cloudy (A) Clear Leukocyte Negative Negative Nitrite Negative Negative Urobilinogen (Urine) 0.2 0-1 E.U./dL Protein 100 (A) Negative PH (Urine) 6.0 5.0 - 8.0 Blood (Urine) Large (A) Negative Specific [place] (Urine) 1.020 1.005 - 1.030 Ketones (Urine) Negative Negative Bilirubin (Urine) Negative Negative Glucose (Urine) Negative Negative Impression and Plan: ICD-10-CM 1. Dysuria R30.0 [facility] URINALYSIS [facility] URINALYSIS 2. Hematuria, unspecified type R31.9 URINALYSIS, MICROSCOPIC CULTURE, URINE, ROUTINE Orders Placed This Encounter [facility] URINALYSIS URINALYSIS, MICROSCOPIC CULTURE, URINE, ROUTINE Sulfamethoxazole-Trimethoprim (Bactrim DS) 800-160 MG per tablet No vaginal bleeding are noted so I would assume this is more likely hematuria. Will send out urine for micro as well as culture If no UTI on culture or any acutely worsening symptoms recommend follow-up with primary care next week Patient verbalized understanding of this and is in agreements Plan of care documented in this encounter Miscellaneous Notes * Result Encounter Note - Anaya Keith NP - 09/27/2024 3:15 PM EST Noted, no further action at this time * Result Encounter Note - Anaya Keith NP - 09/27/2024 3:15 PM EST Noted, no further action at this time documented in this encounter Plan of Treatment Not on file documented as of this encounter Procedures * Due to [facility] law, this organization might not be sharing negative HIV tests. Procedure Name Priority Date/Time Associated Diagnosis Comments CULTURE, URINE, ROUTINE Routine 09/27/2024 6:16 PM EST Hematuria, unspecified type URINALYSIS, MICROSCOPIC STAT (All results called to provider) 09/27/2024 6:16 PM EST Hematuria, unspecified type URINALYSIS, DIP STICK/TABLET REAGENT; AUTOMATED, W/O MICROSCOPY Routine 09/27/2024 3:55 PM EST Dysuria documented in this encounter Results * Due to [place] [employer] law, this organization might not be sharing negative HIV tests. * CULTURE, URINE, ROUTINE (09/27/2024 6:16 PM EST) Bacteria culture (Urine) SEE NOTE [facility] Comment: ??CULTURE, URINE, ROUTINE ??Micro Number: ?[id number] ??Test Status: ? Final ??Specimen Source: ?? [...] 2:15 AM EST Narrative Resulting Agency Comment [id number] Anyaa Keith NP LABORATORY Final Result Performing Organization Address [facility] de Phone Number [facility] [address] [place] [address] * (ABNORMAL) URINALYSIS, MICROSCOPIC (09/27/2024 6:16 PM [...] 2:15 AM EST Narrative Resulting Agency Comment [id number] nAaya Keith NP LAB SAME DAY RESULT Final Result Performing Organization Address [facility] de Phone Number [facility] [address] [place] [address] * (ABNORMAL) [facility] URINALYSIS (09/27/2024 3:55 PM EST) Color (Urine) Nataliya(A) YELLOW [facility] ANALYZER Clarity Cloudy(A) Clear [facility] ANALYZER Leukocyte Negative Negative [facility] ANALYZER Nitrite Negative Negative [facility] ANALYZER Urobilinogen (Urine) 0.2 0-1 E.U./dL [facility] ANALYZER Protein 100(A) Negative [facility] ANALYZER PH (Urine) 6.0 5.0 - 8.0 [facility] ANALYZER Blood (Urine) Large(A) Negative [facility] ANALYZER Specific [place] (Urine) 1.020 1.005 - 1.030 [facility] ANALYZER Ketones (Urine) Negative Negative CLIN [facility]TEK ANALYZER Bilirubin (Urine) Negative Negative [facility] ANALYZER Glucose (Urine) Negative Negative [facility] ANALYZER 09/27/2024 3:55 PM EST 09/27/2024 3:55 PM EST Narrative [facility] ANALYZER - 09/27/2024 3:55 PM EST SN#:[id number] Location:[facility] us Anaya Keith NP LAB SAME DAY RESULT Final Result [facility] ANALYZ[facility] documented in this encounter Visit Diagnoses Diagnosis Dysuria- Primary Hematuria, unspecified type documented in this encounter Care Teams Store Administrator Relationship Specialty Start Date End Date Armin Rueda [facility] [address] [place] [id number] PCP - General Internal Medicine 01/03/14 documented as of this encounter
--- OUTSIDE RECORDS SUMMARY | 2024-10-22 11:23 | XMS_ITS | Clinical Summary ---
Author Organization [facility] Address [phone] [place] [address] Care Team Providers Care Human Capital Manager Name Role Phone Armin Rueda DO Primary Care Provider [phone] Social History Tobacco Use Types Packs/Day Years Used Date Smoking Tobacco: Never Assessed Education Answer Date Recorded Are you interested in more education? Not on dee e 01/12/2023 Are you concerned about learning? Not on file 01/12/2023 No 01/12/2023 No 01/12/2023 Digital Access Answer Date Recorded No 02/12/2023 No 02/12/2023 No 02/12/2023 Reliable internet access at home? Not on file 02/12/2023 Device with a working camera? Not on file Sex and Gender Information Value Date Recorded Sex Assigned at Not on file Gender Identity Not on file Sexual Orientation Not on file Plan of Treatment Not on file Medical Devices Not on file Care Teams Human Capital Manager Relationship Specialty Start Date End Date Armin Rueda DO PCP - General Internal Medicine 10/12/20 Additional Source Comments The information contained in this document represents components of the legal health record. It is not the complete legal health record.[facility]
[2024-10-22 13:31] LABS: Estimated Average Glucose 128 mg/dL; Hemoglobin A1C 145.7155 umol/L; Hemoglobin A1c % 6.1 % (<6.0); Total Hemoglobin (HGBA1C) 3371.5946 umol/L
[2024-10-22 13:59] LABS: Alanine Aminotransferase 10 U/L (0-31); Alkaline Phosphatase 48 U/L (39-117); Anion Gap 9 (12-20); Aspartate Amino Transferase 31 U/L (5-31); Bilirubin Total 0.5 mg/dL (0.0-1.0); Blood Urea Nitrogen 15 mg/dL (9-16); Carbon Dioxide 23 mmol/L (22-29); Chloride 110 mmol/L (96-108); Cholesterol 171 mg/dL (<200); Estimated Glomerular Filt Rate 56; Glucose Random 107 mg/dL (60-115); HDL Cholesterol 46 mg/dL (>40); LDL Cholesterol Calculated 102 mg/dL (<100); Potassium 4.3 mmol/L (3.3-5.1); Sodium 138 mmol/L (135-145); Total Protein 7.5 g/dL (6.5-8.0); Triglycerides 118 mg/dL (<150)
[2024-10-22 14:09] LABS: Creatinine Urine 99.31 mg/dL; Microalbum/Creatinine Ratio Ur 18.1 ug/mg cr (<30)
== END 2024-10-22 10:27 | disposition home or self-care (01) ==
LOC: HO.MANLDS 10:26
PROVIDERS: Visit Provider Internal Medicine
DX: E11.9 Type 2 diabetes mellitus without complications (principal)
CPT/HCPCS: 36415; 80053; 80061; 82043; 82570; 83036

== ENCOUNTER 2025-01-21 10:03 | Outpatient (REF) | payer MEDICARE, OTHER, SELFPAY ==
--- OUTSIDE RECORDS SUMMARY | 2025-01-21 11:14 | XMS_ITS | Referral Summary ---
Author Organization [facility] Address [address] [place] [address] Care Team Providers Care Manager Learning Name Role Phone Armin Rueda Primary Care Provider [phone] Encounters Date Type Department Care Team Description 01/02/2025 8:13 AM EDT - 01/02/2025 11:59 PM EDT Hospital Encounter [facility] [address] [place] [address] Nazia Moore MD Ocular migraine; Type 2 diabetes mellitus without complication, without long-term current use of insulin (HCC); Hypercholesterolemia ; Paroxysmal atrial fibrillation (HCC); Primary hypertension; Other visual disturbances Discharge Disposition: Home or Self Care () 12/19/2024 Telephone [facility] 4th floor Cardiology Medicine [address] [place] [address] Usability Architect: Nazia Hurst MD from Last 3 Months Allergies Active Allergy Reactions Criticality Noted Date Comments Rtmnabm-Ree-Fpj Reductase Inhibitors Muscle Pain,Other (see comments) Medium [...] 01/23/2024 Type 2 diabetes mellitus without complication Sleep apnea 06/14/2021 Positive colorectal cancer screening [...] Info) Description 07/06/2025 11:20 AM EDT Follow-Up [facility] Building 4th floor Cardiology Medicine [address] [place] [address] Usability Architect: Nazia Hurst MD [address] [place] [id number] Procedures * Due to [facility] law, this organization might not be sharing negative HIV tests. Procedure Name Priority Date/Time Associated Diagnosis Comments CAROTID DUPLEX SCAN BILATERAL Routine 01/02/2025 8:48 AM EDT Ocular migraine Type 2 diabetes mellitus without complication, without long-term current use of insulin (HCC) Hypercholesterolemia Paroxysmal atrial fibrillation (HCC) Primary hypertension Other visual disturbances BASIC METABOLIC PANEL STAT 01/21/2024 12:10 PM EDT COLONOSCOPY 01/27/2021 HEMOGLOBIN A1C Routine 09/28/2016 9:07 AM EST [facility] BILATERAL SCREENING DIGITAL MAMMOGRAM Routine 05/31/2007 2:03 PM EDT from Last 3 Months or Most Recently Relevant to Health Maintenance Results * Due to [place] state law, this organization might not be sharing negative HIV tests. * CAROTID DUPLEX SCAN BILATERAL (01/02/2025 8:48 AM EDT) PSV Common Carotid Distal Arterial Left 80.7 cm/s EDV Common Carotid Distal Arterial Left 22.7 cm/s PSV Common Carotid Proximal Arterial Left 92.2 cm/s EDV Common Carotid Proximal Arterial Left 15.7 cm/s PSV Internal Carotid Distal Arterial Left 110 cm/s EDV Internal Carotid Distal Arterial Left 34.9 cm/s PSV Internal Carotid Middle Arterial Left 123 cm/s EDV Internal Carotid Middle Arterial Left 39.5 cm/s PSV Vertebral Arterial Left 53.1 cm/s PSV Common Carotid Distal Arterial Right 87.6 cm/s EDV Common Carotid Distal Arterial Right 12.6 cm/s PSV Common Carotid Proximal Arterial Right 109 cm/s EDV Common Carotid Proximal Arterial Right 16.5 cm/s PSV Internal Carotid Distal Arterial Right 112 cm/s EDV Internal Carotid Distal Arterial Right 31 cm/s PSV Internal Carotid Middle Arterial Right 103 cm/s EDV Internal Carotid Middle Arterial Right 32.1 cm/s PSV Internal Carotid Proximal Arterial Right 76.4 cm/s EDV Internal Carotid Proximal Arterial Right 17.5 cm/s PSV Vertebral Arterial Right 55.3 cm/s PSV External Carotid Arterial Left 93.2 cm/s PSV External Carotid Arterial Right 92.7 cm/s Ratio Prox Internal Carotid Right 0.87 ICAMidRI 1.18 ICADistRI 1.28 IACMIDRIL 1.52 IACDISTRIL 1.36 PSV Internal Carotid Proximal Arterial Left 120.00 cm/s EDV Internal Carotid Proximal Arterial Left 41.60 cm/s Ratio Prox Internal Carotid Left 1.49 Anatomical Region Laterality Modality Carotid Artery Ultrasound Narrative 01/02/2025 9:39 AM EDT ?The right carotid duplex scan showed mild atherosclerotic disease consistent with 1-29% stenosis of the right internal carotid artery. ?The right vertebral flow was antegrade. ?The left carotid duplex scan showed mild atherosclerotic disease consistent with 1-29% stenosis of the left internal carotid artery. ?The left vertebral flow was antegrade. Elevated velocities and turbulence in the mid to distal internal carotid arteries bilaterally with no significant plaque visualized. Right Carotid Right Internal Carotid Artery Proximal: 1-29% stenosis; mild plaque Right Vertebral Artery: flow direction: antegrade Left Carotid Left Internal Carotid Artery Proximal: 1-29% stenosis; mild plaque Left Vertebral Artery: flow direction: antegrade Tech Comments Loss of left visual field in bilateral eyes for 20 minutes, optical migraine vs. TIA Nazia Moore MD CV VASCULAR PROCEDURES Final Result * (ABNORMAL) Basic Metabolic Panel (01/21/2024 12:10 PM EDT) NA 140 135 - 145 mmol/L 01/21/2024 1:03 PM EDT [facility] K 4.1 3.5 - 5.3 mmol/L 01/21/2024 1:03 PM EDT [facility] Cl 107 97 - 110 mmol/L 01/21/2024 1:03 PM EDT [facility] CO2 25 24 - 32 mmol/L 01/21/2024 1:03 PM EDT [facility] BUN 19 7 - 23 mg/dL 01/21/2024 1:03 PM EDT [facility] Creatinine 1.25(H) 0.50 - 1.20 mg/dL 01/21/2024 1:03 PM EDT [facility] Glucose 147(H) 70 - 99 mg/dL 01/21/2024 1:03 PM EDT [facility] Calcium 8.6(L) 8.7 - 10.7 mg/dL 01/21/2024 1:03 PM EDT [facility] Anion Gap 8 5 - 15 01/21/2024 1:03 PM EDT [facility] eGFR 45(L) >=60 mL/min/1 .73m2 01/21/2024 1:03 PM EDT [facility] Comment:The estimated glomer ular filtration rate (eGFR) is calculated using a new formula developed by the NKF-ASN task force to eliminate race-based correction factors. The new formula uses serum/plasma creatinine, age, and gender to determine eGFR. A value below 60mls/min might indicate kidney disease and will be flagged. For additional information, see Alcantara et al, Am J Kidney Dis. 2021;79(2):268- 288, A Unifying Approach for GFR estimation: Recommendations of the NKF-ASN Task Force on Reassessing the Inclusion of Race in Diagnosing Kidney Disease . Blood Structure of peripheral vein / Unknown Venipuncture / Unknown 01/21/2024 12:10 PM EDT 01/21/2024 12:24 PM EDT us Protocol Unv Adult Treatment MD LAB BLOOD ORDERA BLES Final Result [facility] [address] [place] [address], [place] * COLONOSCOPY (01/27/2021) Narrative Procedure Note Roberto Garcia MD - 01/27/2021 12:33 PM EDT Gastroenterology Patient Name: Bren Urrutia Procedure Date: 01/27/2021 12:33 PM Date of : 1950 Admit Type: Outpatient Age: 70 Room: [place] [address] Gender: Female Note Status: Finalized Attending MD: [...] procedure by the physician, the nurse, the global position system technician and the blow mold technician. Theprocedure was verified in the procedure [...] 9:07 AM EST) Hemoglobin A1C 11.4(H) <5.7 [facility] Comment: UNITS OF MEASURE: % of total [...] for children. eAG (MG/DL) 280 () (calc) [facility] eAG (MMOL/L) 15.5 () (calc) [facility] 09/28/2016 9:07 AM EST 09/28/2016 10:36 AM EST us Armin Rueda LAB BLOOD ORDERABLES Final Resul t [facility] [address] [facility] 3rd Floor, [place] [address], [place] * [facility] Bilateral Screening Digital Mammogram (05/31/2007 2:03 PM [...] OVERALL ASSESSMENT - BENIGN END OF IMPRESSION us Armin Bigda IMG BI PROCEDURES Final Result from Last 3 Months or Most Recently Relevant to Health Maintenance Insurance MEDICARE [facility] Advance Directives Documents on File Type Date Recorded Patient Hadoop Analyst Expl anation Advance Directive 07/08/2010 12:00 AM Medical Dec Making (Adv.Dir) * Full Code (Latest Code Status on File) Date Activated Date Inactivated Comments 01/27/2021 2:00 PM 01/27/2021 4:52 PM Care Teams Manager Learning Relationship Specialty Start Date End Date Armin Rueda [address] [place] [id number] PCP - General 04/05/17
--- OUTSIDE RECORDS SUMMARY | 2025-01-21 11:14 | XMS_ITS ---
Author Organization [facility] [employer], [facility] Address [address] [facility] [address] [place] [address] Care Team Providers Care Programmer Engineering And Scientific Name Role Phone Armin Rueda Primary Care Provider Az Rubio Unavailable [phone] Leif Peña Unavailable [phone] REASON FOR VISIT cpap Encounters Encounter Location Date Provider Diagnosis [facility] [employer] [facility], [address] [place] [address] 01/29/2024 Leif Peña Plan Of Treatment No Information Progress Notes * Kathryn URRUTIAOB:1950 (73 yo F)Acc No.[id number]:01/29/2024 Patient:?Bren URRUTIA :1950???Age:73 Y???Sex:Female Address:[address] [place] [address], [address] * true * Date:? Generated for Citlalyi linda/Yobani/eTransmitting on:?01/21/2025 11:13 AM EDT
--- OUTSIDE RECORDS SUMMARY | 2025-01-21 11:14 | XMS_ITS | Clinical Summary ---
Author Organization [facility] Address [address] [place] [address] Care Team Providers Care Adult Literacy Teacher Name Role Phone Armin Rueda Primary Care Provider [phone] Allergies Active Allergy Reactions Criticality Noted Date Comments Nlagcjk-Jcu-Bak Reductase Inhibitors Muscle Pain,Other (see comments) Medium [...] - 01/02/2025 11:59 PM EDT Hospital Encounter [facility] [address] [place] [address] Nazia Moore MD Ocular migraine; Type 2 diabetes mellitus without complication, without long-term current use of insulin (HCC); Hypercholesterolemia ; Paroxysmal atrial fibrillation (HCC); Primary hypertension; Other visual disturbances Discharge Disposition: Home or Self Care () 12/19/2024 Telephone [facility] 4th floor Cardiology Medicine [address] [place] [address] Fish Agent: Nazia Hurst MD from Last 3 Months Social History Tobacco [...] Info) Description 07/06/2025 11:20 AM EDT Follow-Up [facility] 4th floor Cardiology Medicine [address] [place] [address] Fish Agent: Matilda Moore, Nazia Nelson MD [address] [place] [address] Health Maintenance Due Date Last Done Comments Hepatitis C Screening 1950 Medicare AWV 1951 Ophthalmology Exam 1958 Osteoporosis Screening 1998 Zoster Vaccines (2 of 3) 11/11/2013 09/16/2013 RSV Vaccine (60+ years old and patients) (1 - 1-dose 75+ series) 2023 Hemoglobin A1C 12/27/2023 06/27/2023, 09/18, 09/28/2016, Additional history exists COVID-19 Vaccine ( season) 2024 07/29/2022, 12/16/2021, 06/24/2021, Additional history exists Urine Microalbumin 06/27/2024 06/27/2023 Alcohol/Substance Use Screening 09/17/2024 Depression Screening and Follow-Up 09/17/2024 Health Care Proxy Review 09/17/2024 Social Drivers of Health Annual Screening 09/17/2024 Basic Metabolic Panel 01/20/2025 01/21/2024 , 06/27/2023, 09/28/2016 Influenza Vaccine (Season Ended) 2025 08/20/2023, 06/22/2022, 07/01/2021, Additional history exists DTaP,Tdap,and Td Vaccines (2 - Td or Tdap) 10/20/2025 10/20/2015 Colonoscopy 01/27/2026 01/27/2021, 01/15, 01/27/2021, Additional history exists Mammogram Discontinued 05/31/2007 Pneumococcal Vaccine: 50+ Years Completed 04/10/2017, 03/05/2015 Hepatitis B Vaccines Aged Out No long er eligible based on patient's age to complete this topic Procedures * Due to [place] state law, this organization might not be [...] to Health Maintenance Results * Due to [place] state law, this organization might not be [...] for 20 minutes, optical migraine vs. TIA us Nazia Moore MD CV VASCULAR PROCEDURES Final Result * (ABNORMAL) Basic Metabolic Panel (01/21/2024 12:10 PM EDT) NA 140 135 - 145 mmol/L 01/21/2024 1:03 PM EDT [facility] K 4.1 3.5 - 5.3 mmol/L 01/21/2024 1:03 PM EDT [facility] Cl 107 97 - 110 mmol/L 01/21/2024 1:03 PM EDT [facility] CO2 25 24 - 32 mmol/L 01/21/2024 1:03 PM EDT [facility] BUN 19 7 - 23 mg/dL 01/21/2024 1:03 PM EDT [facility] Creatinine 1.25(H) 0.50 - 1.20 mg/dL 01/21/2024 1:03 PM EDT [facility] Glucose 147(H) 70 - 99 mg/dL 01/21/2024 1:03 PM EDT [facility] Calcium 8.6(L) 8.7 - 10.7 mg/dL 01/21/2024 1:03 PM EDT [facility] Anion Gap 8 5 - 15 01/21/2024 1:03 PM EDT [facility] eGFR 45(L) >=60 mL/min/1 .73m2 01/21/2024 1:03 PM EDT [facility] Comment:The estimated glomer ular [...] PM EDT us Protocol Unv Adult Treatment LAB BLOOD ORDERA BLES Final Result [facility] [address] [place] [address], [place] * COLONOSCOPY (01/27/2021) Narrative Procedure Note Roberto Garcia MD - 01/27/2021 12:33 PM EDT Gastroenterology Patient Name: Bren Urrutia Procedure Date: 01/27/2021 12:33 PM Date of : 1950 Admit Type: Outpatient Age: 70 Room: [place] [address] Gender: Female Note Status: Finalized Attending MD: [...] procedure by the physician, the nurse, the fans clerk and the combination technician. Theprocedure was verified in the procedure [...] to: Armin Rueda MD (CC) us Roberto Gacria MD PROVATION PROCEDURES Final Resu lt * (ABNORMAL) Hemoglobin A1c (09/28/2016 9:07 AM EST) Hemoglobin A1C 11.4(H) <5.7 [facility] Comment: UNITS OF MEASURE: % of total [...] for children. eAG (MG/DL) 280 () (calc) [facility] eAG (MMOL/L) 15.5 () (calc) [facility] 09/28/2016 9:07 AM EST 09/28/2016 10:36 AM EST us Armin Coolio LAB BLOOD ORDERABLES Final Resul t [facility] [address] [facility] 3rd Floor, [place] [address], [place] * [facility] Bilateral Screening Digital Mammogram [...] abnormalities are seen. Procedure Note Meg Talbot - 07/03/2017 No comparison films were available [...] Recently Relevant to Health Maintenance Insurance MEDICARE [facility] Advance Directives Documents on File Type Date Recorded Patient Dag Sprayer Expl anation Advance Directive 07/08/2010 12:00 AM sf Medical Dec Making (Adv.Dir) * Full Code (Latest Code Status on File) Date Activated Date Inactivated Comments 01/27/2021 2:00 PM 01/27/2021 4:52 PM Care Teams Adult Literacy Teacher Relationship Specialty Start Date End Date Armin Rueda [address] [place] [address] PCP - General 04/05/17
--- OUTSIDE RECORDS SUMMARY | 2025-01-21 11:14 | XMS_ITS | Clinical Summary ---
Author Organization [facility] Address [address] [place] [address] Care Team Providers Care Legal Support Assistant Name Role Phone Armin Rueda Primary Care Provider [phone] Allergies Active Allergy Reactions Criticality Noted Date [...] mouth 1 (one) time each day. Active Active Problems No known active problems Immunizations Name Administration Dates Next Due COVID-19, [...] (2 of 2 - PCV) 04/10/2018 04/10/2017 RSV (1 - 1-dose 75+ series) 2023 COVID-19 Vaccine (6 - season) 2024 07/29/2022, 12/16/2021, 06/24/2021, Additional history exists Influenza (Season Ended) 2025 023, 06/22/2022, 07/01/2021, Additional history exists DTaP/Tdap/Td (2 - Td or Tdap) 10/20/2025 10/20/2015 Colon Cancer Screening 01/27/2031 01/27/2021 Zoster (Zostavax) Discontinued 09/16/2013 Cologuard Dates Discontinued 06/29/2020 LDL Cholesterol Discontinued 06/27/2023, 06/17, 10/12/2020 Colonoscopy Discontinued HPV Vaccine Aged Out No longer eligi [...] to complete this topic Pap Smear Discontinued Insurance MEDICARE PART [facility] MEDICARE EXTENSION SU[employer] [place] [id number] Care Teams Legal Support Assistant Relationship Specialty Start Date End Date Armin Rueda [facility] [address] [place] [id number] PCP - General Internal Medicine 01/03/14
--- OUTSIDE RECORDS SUMMARY | 2025-01-21 11:14 | XMS_ITS | Patient Health Record ---
Author Organization [employer] Address [address] [address] Care Team Providers Care Non Profit Financial Controller Name Role Phone Armin Rueda Primary Care Provider UnavailAz Delgado Unavailable [phone] Leif Peña Unavailable [phone] Allergies Allergen (clinical drug ingredient) Drug/Non Drug Allergy documented on EMR Reaction Allergy Type Onset Date Status Substance with 8-oqkvxpj-6-methylgluta ryl-coenzyme A reductase inhibitor mechanism of action (substance) Statins Unknown Drug Allergy Active Reason For Referral No Information Medications Medication SIG (Take, Route, Frequency, Duration) Notes Start Date End Date Status metFORMIN HCl 1000 MG TAKE 1 TABLET BY M OUTH TWICE DAILY Oral for 90 Not-Taki ng OneTouch Delica Lancets 30G - TEST QD for 90 Active CPAP machine Set pressure Please include all necessary supplies including heated tubing, headgear, filters, water chamber, etc. Enroll in online monitoring 03/03/2021 Active OneTouch Verio - TEST TWICE A DAY In Vitro for 90 Active OneTouch Delica Plus [id number] - TEST EVERY DAY for 90 Active Lisinopril 40 MG TAKE 1 TABLET BY JANIYA TH EVERY DAY Oral for 90 Active Ozempic (1 MG/DOSE) 2 MG/1.5ML INJECT 1 MG EVERY WEEK UNDER THE SKIN DIRECTED Subcutaneous for 84 Active Multivitamin - 1 tablet Orally Once a day for 30 day(s) Active ZyrTEC Allergy 10 MG 1 tablet Orally Onc e a day for 30 day(s) Active metFORMIN HCl 500 MG 1 tablet with a brooke l Orally Once a day for 30 day(s) Active Erythromycin 5 MG/GM Ophthalmic for 7 Not-Taking Aspirin 81 MG 1 tablet Orally Once a day for 30 day(s) Active Social History Tobacco Use: Social History Observation Description Date Details (start date - stop date) Never Smoker NA - NA Tobacco Use/Smoking Question Answer Notes Are you a nonsmoker Problems Problem Type SNOMED Code ICD Code Onset Dates Problem Status W/U Status Risk Notes Problem Sleep apnea (13361573) Sleep apnea (G47.30) Active confirmed Problem Obstructive sleep apnea syndrome (20225191) BRITTNEY (obstructive sleep apnea) (G47.33) Active confirmed Problem Atrial fibrillation (18069465) Atrial fibrillation (I48.91) Active confirmed Encounters Encounter Location Date Provider Diagnosis [address] [address] 01/29/2024 Leif Peña Plan Of Treatment No Information Insurance Providers Payer Name Payer Address Payer Phone Subscriber Number Group Number Insured Name Patient Relationship to Insured Coverage Start Date Coverage End Date MEDICARE [address] [place], [place] [id number] Bren Urrutia Self - patient is the insured [facility] IN[employer] [address] [place], [place] [id number] Bren Urrutia Self - patient is the insured Medical (General) History Medical History History ICD Code Atrial fibrillation I48.91 Sleep concern Z76.89 Diabetes Surgical History Surgery Date(Month/Year) left knee-torn meniscus 1999 Hospitalization History Reason Date(Month/Year) Child 1969 Child 1971 Child 1980
--- OUTSIDE RECORDS SUMMARY | 2025-01-21 11:14 | XMS_ITS | Data Portability ---
Author Organization [facility] Address [address] [place] [address] Assessment Encounter Date Assessment Date Assessment LastModified by Organization Details LastModified Time 01/23/2024 01/23/2024 [id number] [place] [id number] (PERFUMER) MDM MODERATE MUST MEET 2 OUT OF [...] promote healthy living. Not available 04/16/2024 14:10:51 10/28/2024 10/28/2024 [id number] [place] [id number] (PERFUMER) MDM HIGH MUST MEET 2 OUT OF 3 ELEMENTS: PROBLEMS, DATA OR RISK ELEMENT 1: PROBLEMS 1 OR MORE CHRONIC ILLNESS W/SEVERE EXACERBATION, PROGRESSION MAY REQUIRE HOSPITAL LEVEL CARE OR 1 ACUTE OR CHRONIC ILLNESS OR INJURY THAT POSES A THREAT TO LIFE OR BODILY FUNCTION ELEMENT 2: DATA: MUST MEET 2 OF 3 CATEGORIES CATEGORY 1 REVIEW OF PRIOR EXTERNAL NOTES REVIEW OF THE RESULTS ORDERING OF EACH TEST ASSESSMENT REQUIRING INDEPENDENT HISTORIAN(S) CATEGORY 2: INDEPENDENT INTERPRETATION OF TESTS BY ANOTHER PROVIDER/SPECIALI ST CATEGORY 3: DISCUSSION OF MGT OR TEST INTERPRETATION W/EXTERNAL PHYSICIAN/SPECIAL IST ELEMENT 3: RISK HIGH RISK OF MORBIDITY FROM ADDITIONAL DIAGNOSTIC TESTING OR TREATMENT PROVIDER MUST THOROUGHLY DOCUMENT EACH ELEMENT THAT IS COVERED ON THE DATE OF THIS ENCOUNTER, I PERSONALLY PERFORMED, FOR A TOTAL TIME OF , , , , , , , MINUTES, BOTH FACE TO FACE AND NON FACE TO FACE SERVICES WHICH INCLUDED: REVIEWING RECORDS, OBTAINING PATIENT HISTORY, PERFORMING A MEDICALLY APPROPRIATE EXAMINATION, COUNSELING AND EDUCATING THE PATIENT/FAMILY/CA REGIVER AND DOCUMENTING CLINICAL INFORMATION IN THE ELECTRONIC HEALTH RECORD ADDITIONAL SERVICES: The patient presented to their appointment today for multiple concerns requiring moderate to high-level decision making and took over 40-45 minutes for an adequate and appropriate history, exam, assessment and treatment plan. This appointment was done with an established patient. Not available 10/28/2024 13:56:40 12/12/2024 12/12/2024 [id number] [place] [address] (PERFUMER) : MDM LOW MUST MEET 2 OF 3 ELEMENTS: PROBLEMS, DATA OR RISK ELEMENT 1: PROBLEMS ADDRESSED (LOW): 2 OR MORE SELF-LIMITED OR MINOR PROBLEMS OR 1 STABLE CHRONIC ILLNESS OR 1 ACUTE UNCOMPLICATED ILLNESS OR INJURY ELEMENT 2: DATA TO BE REVISED AND ANALYZED (LOW) MUST MEET 1 OF 2 CATEGORIES: CATEGORY 1. REVIEW OF PRIOR EXTERNAL NOTES/RESULTS, ORDERING OF TEST(S) CATEGORY 2. ASSESSMENT REQUIRING INDEPENDENT HISTORIAN(S) INCLUDE WHO THE HISTORIAN IS AND RELATION TO PT AND WHY PT IS UNABLE TO GIVE COMPLETE HISTORY ELEMENT 3: RISK (LOW) RISK OF COMPLICATIONS AND/OR MORBIDITY OR MORTALITY OF PATIENT MANAGEMENT PROVIDER MUST THOROUGHLY DOCUMENT ALL OF THE ELEMENTS COVERED Not available 12/12/2024 15:25:04 Plan of Treatment Reminders Order Date Submit Date Provider Last Modified By Organization Details Last Modified Time Details Appointments FOLLOW UP 15 2024 02:30P M DR HANSON Not available Not available Not available Lab lipid panel, blood 2023 [facility], [address] [place] [address], [id number], 07/18/2024 13:53:52 hemoglobi n, gastroint estinal, stool 2023 [facility], [address] [place] [address], [id number], 07/18/2024 13:53:52 CBC w/ auto diff 2023 [facility], [address] [place] [address], [id number], 07/18/2024 13:53:52 CMP, serum or plasma 2023 [facility], [address] [place] [address], [id number], 07/18/2024 13:53:52 Referral None recorded. Procedures None recorded. Surgeries None recorded. Imaging US, duplex, carotid artery - recent episode of visual field loss 2024 [facility], [address] [place], [address], 12/15/2024 11:21:17 MAMMO, screening , digital, bilateral 2023 [facility], [address] [place], [address], 08/01/2024 08:20:19 Medication Orders ezetimibe 10 mg tablet 2023 AVAL[id number], [address] [place] [address], [phone], 07/18/2024 13:46:42 metoprolo l tartrate 25 mg tablet 2023 024 [email or web address] [id number], [address], [place], [phone], 02/13/2024 10:59:27 Xarelto 10 mg tablet 2023 024 ROSEANNA [facility][id number], [address], [place], [phone], 07/18/2024 13:28:09 Patient TargetsNo targets recorded. Patient Instructions Encounter Date Encounter Id Patient Instructions Last Modified By Organization Details Last Modified Time 07/18/2024 [id number] Discussed and explained advance directives such as standard forms to the {{patient caregiv er patient and caregiver}}. Face to face discussion lasted for a duration of ___ minutes. Not available 04/16/2024 14:10:51 10/28/2024 [id number] leg and ankle edema: care instructions Not available 10/28/2024 13:55:57 type 2 diabetes: care instructions Not available 10/28/2024 13:55:57 Reason for Referral None Reported. Results Created Date Observation Date Name Description Value Unit Range Abnormal Flag Note LastModifiedBy Organization Detail LastModifiedTime 08/13/2008/13/2024 trans -thor acic echoc ardio gram (TTE) (PROC ) No observ ation record ed. [facility] (Cardiac Ultrasound) [address] [place], [address], 08/13/2024 11:41:32 01/03/2012/23/2024 US, natalie xtracy id arter y No observ ation record ed. [facility] [address] [place], [address], 01/02/2025 15:24:37 Result Notes None recorded. Problems Name Problem SNOMED Code Status Onset Date Resolution Date Notes Provider Name and Address Organization Details Recorded Time Type 2 diabetes mellitus 97183036 Active 2017 [facility] Annmarlene [facility] 5 09:55:25 Celiac disease 462150416 Active 2017 Jo Annmarlene gard[facility]Robert [facility] 5 09:55:25 Hypertensi ve disorder 91577188 Active 2017 Jo Annmarlene gard[facility]Robert [facility] 5 09:55:25 Cataract 226786129 Active 2017 Jo Annmarlene [facility] 5 09:55:25 Edema of lower extremity 246451705 Active 2017 Jo Ann Wesley [facility] 5 09:55:25 Bunion 986487057 Active 2017 Jo Annmarlene [facility] 5 09:55:16 Hyperchole sterolemia 27075151 Active 2017 Armin Hanson DO [address] [place] [address], [phone], [facility] 8 14:13:39 Sacrum sprain 619809056 Active 2018 Armin Hanson DO [address] [place] [address], [phone], [facility] 9 14:18:29 Sciatica 05228630 Active 2018 Armin Hanson DO [address] [place] [address], [phone], [facility] 9 14:19:03 Spinal stenosis of lumbar region 36813782 Active 2018 Armin Hanson DO [address] [place] [address], [phone], [facility] 9 14:22:19 Sleep apnea 88063687 Active 2020 Armin Hanson DO [address] [place] [address], [phone], [facility] 1 14:07:48 Knee joint painful on movement 860061845 Active 2020 Jo Annmarlene Olson null, [facility] 5 09:55:25 Diabetes mellitus 60956021 Active 2021 Jo Ann Wesley null, [facility] 5 09:55:25 Acute sinusitis 39059195 Active 2022 Jo Ann Wesley null, [facility] 5 09:55:16 Postviral cough 420411988 Active 2022 Jo Ann Wesley null, [facility] 5 09:55:16 Type 2 diabetes mellitus without complicati on 748054938 Active 2022 Jo Ann Wesley null, [facility] 5 09:55:25 COVID-19 528118459 Active 2022 Jo Annmarlene Olson null, [facility] 5 09:55:16 Acute conjunctiv itis 58745151 Active 2023 Jo Ann Wesley null, [facility] 5 09:55:16 Paroxysmal atrial fibrillati on 136121287 Active 2023 Jo Annmarlene Olson null, [facility] 5 09:55:25 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 Procedures Surgical History Date Name Laterality Status Provider Name and Address Organization Details Recorded Time 01/28/20 21 Colonoscopy completed Armin Hanson DO [address] [place] [address], [phone], [facility] 01/27/2021 16:03:29 Imaging Results Imaging Date Name Status LastModified by Organization Details LastModified Time 08/13/2024 trans-thoracic echocardiogram (TTE) (PROC) completed [facility] (Cardiac Ultrasound) [address] [place], [address], 08/13/2024 11:41:32 12/23/2024 US, duplex, carotid artery completed [facility] [address] , [place], [address], 01/02/2025 15:24:37 Procedure Notes None recorded. Medical Equipment None Reported. Allergies Allergen ID Allergen Name Allergen Category Reaction Reaction Severity Criticality Documentation Date Start Date Code Code System Note Provider Name and Address Organization Details Recorded Time 2646 Product containin g 3-hydroxy -3-methyl glutaryl- coenzyme A reductase inhibitor (product) medicatio n myalgias (muscle pain) Not available Not available 09/18/2018 05185 009 SNOMED incre ased blood sugar s [facility] 9 14:59:08 Medications Name Sig Start Date [...] completed Not Available Not Available Not Available sulfamethox azole 800 mg-trimetho prim 160 mg tablet TAKE 1 TABLET BY MOUTH TWICE DAILY FOR 7 DAYS 10/28 completed Not Available Not Available Not Available amoxicillin 500 mg tablet TAKE 2 TABLETS BY MOUTH TO START THEN 1 TABLET EVERY 8 HOURS UNTIL ALL TAKEN 10/28 completed Not Available Not Available Not Available benzonatate 100 mg capsule 07/18 completed [...] Not Available Not Available No t Available neomycin-po lymyxin-dex ameth 3.5 mg/mL-10,00 0 unit/mL-0.1 % eye drops INSTILL 1 DROP INTO AFFECTED EYE(S) BY OPHTHALMI C ROUTE EVERY 3-4 HOURS 01/22 completed Not Available Not Available Not Available metoprolol tartrate 50 mg tablet TAKE 1 TABLET BY MOUTH TWICE DAILY active Not Available Not Available No t Available Aspir-81 mg tablet,pedro yed release Take 1 tablet every day by oral route. 10/28 completed Not Available Not Available Not Available methylpredn isolone 4 mg tablets in a dose pack FOLLOW PACKAGE DIRECTION S 07/18 completed Not Available Not Available Not Available lisinopril 40 mg tablet TAKE 1 TABLET BY MOUTH EVERY DAY active Not Available Not Available No t Available amoxicillin 875 mg-potassiu m clavulanate 125 mg [...] Verio test strips USE TO TEST TWICE DAILY. active Not Available Not Available No t Available Reema Hassan U-100 Insulin 100 unit/mL (3 mL) subcutaneou [...] Available Not Available Not Available Fluzone High-Dose [id number] (PF) 180 mcg/0.5 mL intramuscul ar syringe [...] UNDER THE SKIN ONCE EVERY WEEK DIRECTED 2024 active Not Available Not Available Not Avai lable BinaxNOW COVID-19 Ag Self Test kit TEST [...] Updated DateTime 4 172.72 cm 39 kg/m2 981330. 8 g 84 /min 18 /min 98 % 98 % 138 mm[Hg] 86 mm[Hg] Dc Ling MA [facility] 4 10:21:17 Date Recorded Body height Body mass index (BMI) Body weight Heart rate Respiratory rate Oxygen saturation Oxygen saturation in Arterial blood by Pulse oximetry Systolic blood pressure Diastolic blood pressure Provider Name and Address Organization Details Last Updated DateTime 4 172.72 cm 38.2 kg/m2 726485. 48 g 72 /min 16 /min 99 % 99 % 118 mm[Hg] 76 mm[Hg] Dc Ling MA [facility] 4 11:03:13 Date Recorded Body height Body mass index (BMI) Body weight Heart rate Oxygen saturation Oxygen saturation in Arterial blood by Pulse oximetry Systolic blood pressure Diastolic blood pressure Provider Name and Address Organization Details Last Updated DateTime 4 172.72 cm 40.3 kg/m2 852546. 98 g 82 /min 98 % 98 % 138 mm[Hg] 86 mm[Hg] Dc Ling MA [facility] 4 13:29:39 Date Recorded Body height Body mass index (BMI) Body weight Heart rate Oxygen saturation Oxygen saturation in Arterial blood by Pulse oximetry Systolic blood pressure Diastolic blood pressure Provider Name and Address Organization Details Last Updated DateTime 5 172.72 cm 40.6 kg/m2 664062. 16 g 80 /min 98 % 98 % 134 mm[Hg] 70 mm[Hg] Dc Ling MA [facility] 5 13:41:50 Social History Question Answer Notes LastModified by Organizat ion Details LastModified Time Tobacco Smoking Status Former Smoker @ 14yo Dc garduno [facility] 01/23/2024 10:23:29 What Was The Date Of Your Most Recent Tobacco Screening? 10/28/2024 [email or web address] Information not available 10/28/2024 Do You Or Have You Ever Used [...] 30 mcg/0.3 mL dose 1 completed [facility] 02/28/2022 08:17:28 COVID-19, mRNA, LNP-S, PF, 30 mcg/0.3 mL dose 2 completed Mariza Lopez [facility] 02/28/2022 08:17:36 Influenza, split virus, quadrivalent, preservative 1 completed Mariza Lopez [facility] 02/28/2022 08:17:53 Influenza, split virus, quadrivalent, preservative 8 completed Aby Etienne [facility] 08/27/2018 14:20:16 zoster live 3 completed Aby Etienne [facility] 08/27/2018 14:18:25 Pneumococcal conjugate PCV 13 5 completed Aby Etienne [facility] 08/28/2018 13:57:46 pneumococcal polysaccharide PPV23 7 completed Aby Etienne [facility] 08/28/2018 13:57:57 Influenza, split virus, quadrivalent, preservative 0 completed Pattie Tam [facility] 06/08/2020 10:56:58 Influenza, split virus, quadrivalent, preservative 9 completed Aby Etienne [facility] 07/22/2019 13:51:31 Tdap 6 dagoberto [facility]Robert [facility] 02/01/2021 09:53:19 COVID-19, mRNA, LNP-S, PF, 30 mcg/0.3 mL dose 1 dagoberto [facility] 02/01/2021 09:53:46 COVID-19, mRNA, LNP-S, PF, 30 mcg/0.3 mL dose completed Aby Etienne [facility] 02/01/2021 09:53:51 Past Encounters Encounter ID Performer Location Encounter Start Date Encounter Closed Date Diagnosis/Indication Diagnosis SNOMED-CT Code Diagnosis ICD10 Code Diagnosis Note [id number] Armin Hanson [facility] [address] [facility] [place] [address] 05/01/2018 15:10:53 05/01/2018 16:26:29 Hypertensive disorder 54907273 I10 stable and doing ok Type 2 bharat betes mellitus 26370116 E11.9 a1c is 5.5 and doing ok but has gained some wgt Edema of l ower extremity 430601130 R60.0 currently ius doing oik no bad swelling [id number] Armin Hanson [facility] [address] [facility] [place] [address] 08/27/2018 13:38:36 08/27/2018 15:37:08 Hypertensive disorder 76311477 I10 stable and doing ok Type 2 bharat betes mellitus 71951839 E11.9 a1c is 5.5 and doing ok but has gained some wgt Hypercholesterolemia 136 80860 E78.00 [place] [id number] Armin Hanson [facility] [address] [facility] [place] [address] 11/15/2018 14:51:27 11/15/2018 15:28:14 Lumbago with sciatica 284310684 M54.41 has marked discomfort now with examinatio n of her and will get her an MRI pain is intractabl e and she is now getting right leg muscle weakness and her leg is giving out on her seems to have a diminished achilles DTR [id number] Armin Hanson [facility] [address] [facility] [place] [address] 12/24/2018 13:39:45 12/24/2018 14:51:27 Adult health examination 354052288 Z00.01 relates that she is doing ok but her low back is the most problem as the morning is especially bad overall seems to be sl better with moving and coping with her low back pain Active or passive immunization 114411283 Z23 [id number] Armin Ruelas Marybeth [facility] [address] [facility] [address] [address] 04/07/2019 11:10:34 04/07/2019 12:16:34 Type 2 diabetes mellitus 75381736 E11.9 a1c is 5.6 and doing ok Hypertensive disorder 38 060393 I10 stable and doing ok Hepatitis C screening 41 1641385 Z11.59 next lab Osteopenia 254753941 M85 .80 [id number] Armin Suraj Hanson [facility] [address] [facility] [address] [address] 07/22/2019 13:48:19 07/22/2019 14:39:19 Type 2 diabetes mellitus 76024255 E11.9 a1c is 5.6 and doing ok Hypercholesterolemia 136 72943 E78.00 atorvastat in not tolerated Hypertensive disorder 38 049819 I10 stable and doing ok Esophageal dysphagia 408 55311 R13.19 will order test Obstructiv e sleep apnea syndrome 41276393 G47.33 given afib episodes and symptoms of apnea and snoring will refer her [id number] Armin Suraj Hanson [facility] [address] [facility] [address] [address] 10/28/2019 13:16:08 10/28/2019 14:31:56 Hypercholesterolemia 83491388 E78.00 atorvastat in not tolerated Type 2 bharat betes mellitus 56433194 E11.9 a1c is 6.2 and doing ok but her diet is a chocolate diet and this is because of her stress with grandson Hypertensive disorder 38 000576 I10 stable and doing ok [id number] Armin Hanson [facility] [address] [facility] [address] [address] 02/25/2020 10:45:54 02/25/2020 12:01:42 Hypercholesterolemia 03508046 E78.00 atorvastat in not tolerated Hypertensive disorder 38 762380 I10 stable and doing ok but it has been elevated today Type 2 bharat betes mellitus 17694453 E11.9 a1c is 5.4 !!!!!!!!an d doing ok and ozempic has worked incredible [id number] [facility] [address] [facility] [address] [address] 06/08/2020 10:45:14 06/08/2020 13:39:54 Administration of influenza vaccine 07197052 Z23 [id number] Armin Hanson [facility] [address] [facility] [address] [address] 06/14/2020 10:30:10 06/14/2020 11:54:01 Type 2 diabetes mellitus 46359227 E11.9 a1c is 5.4 !!!!!!!!an d doing ok and ozempic has worked incredible we will stop the metformin! !! rechk in 3 mo Hypertensive disorder 38 846998 I10 stable and doing ok but it has been elevated today Edema of l ower extremity 615283499 R60.0 currently ius doing ok no bad swelling Hypercholesterolemia 136 67542 E78.00 LDL is 120 doing great with diet and exercise Screening for malignant neoplasm of colon 524901368 Z12.11 [id number] [facility] [address] [facility] [address] [address] 10/18/2020 08:42:03 10/18/2020 13:32:19 Hypertensive disorder 27597184 I10 stable and doing ok but it has been elevated on occ but she is careful and watching Edema of l ower extremity 416971060 R60.0 currently ius doing ok no bad swelling Type 2 bharat betes mellitus 87945960 E11.9 a1c is 6.2 was 5.4 !!!!!!!!an d doing ok and ozempic has worked incredible [place] [id number] [facility] [address] [facility] [address] [address] 02/02/2021 13:19:40 02/02/2021 14:21:08 Adult health examination 068747394 Z00.00 relates that she is doing ok but her low back is the most problem as the morning is especially bad overall seems to be sl better with moving and coping with her low back pain Screening for malignant neoplasm of colon 801322011 Z12.11 had colonoscop y had one tubular adenoma Screening mammography 24 739693 Z12.31 refused [id number] Armin Hanson [facility] [address] [facility] [address] [address] 06/14/2021 08:14:24 06/14/2021 15:06:55 Edema of lower extremity 973137011 R60.0 currently ius doing ok no bad swelling Hypercholesterolemia 136 29038 E78.00 LDL is 120 doing great with diet and exercise Hypertensive disorder 38 208994 I10 stable and doing ok but it has been elevated on occ but she is careful and watching Type 2 bharat betes mellitus 68898138 E11.9 a1c is 6.2 was 5.4 !!!!!!!!an d doing ok and ozempic has worked incredible will watch if this cont to go uprecent eye exam good and has had neg retinopath y eval recently Sleep apnea 49367939 G47 .30 doing really well and wearing mask every night Knee joint painful on movement 540488335 M25.569 will cont with neoprene brace [id number] Armin Hanson [facility] [address] [facility] [address] [address] 11/11/2021 07:56:55 11/14/2021 14:00:43 Hypertensive disorder 33688399 I10 stable and doing ok but it has been elevated on occ but she is careful and watching Type 2 bharat betes mellitus 35799407 E11.9 a1c is now 5.6 but was 6.2 was 5.4 !!!!!!!!an d doing ok and ozempic has worked incredible will watch if this cont to go uphas not been too good with diet lately and has gained wgtrecent eye exam good and has had neg retinopath y eval recently [id number] Armin Hanson [facility] [address] [facility] [address] [address] 03/06/2022 12:02:40 03/10/2022 08:08:55 Hypertensive disorder 83080885 I10 stable and doing ok but it has been elevated on occ but she is careful and watching Type 2 bharat betes mellitus 27100690 E11.9 a1c is now 5.5 !!!!!! 5.6 but was 6.2 was 5.4 !!!!!!!!an d doing ok and ozempic has worked incredible will watch if this cont to go upshe has lost 33 # of wgtrecent eye exam good and has [place] [address] day 110 Edema of l ower extremity 987872911 R60.0 currently is doing ok no bad swelling [id number] Armin Hanson, [facility] [address] [facility] [place] [facility] [address] 06/09/2022 13:17:39 06/09/2022 15:52:16 Type 2 diabetes mellitus 60339541 E11.9 a1c is now 5.4 and was 5.5 !!!!!! 5.6 but was 6.2 was 5.4 !!!!!!!!an d doing ok and ozempic has worked incredible will watch if this cont to go upshe has lost another 10 lbrecent eye exam good and has had [place] [address] day 110 Hypertensive disorder 38 240139 I10 stable and doing ok but it has been elevated on occ but she is careful and watching Sleep apnea 77910933 G47 .30 doing really well and wearing mask every night Edema of l ower extremity 795721484 R60.0 currently is doing ok no bad swelling [id number] Armin Hanson, [facility] [address] [facility] [place] [address] [facility] [place] [address] 11/20/2022 13:59:23 11/20/2022 15:21:21 Active or passive immunization 468505835 Z23 Adult heal th examination 565048155 Z00.00 relates that she is doing ok but her low back is the most problem as the morning is especially bad overall seems to be sl better with moving and coping with her low back pain Type 2 bharat betes mellitus 09210514 E11.9 a1c is 5.5 prior 5.4 and was 5.5 !!!!!! 5.6 but was 6.2 was 5.4 !she has gained another 10 lbrecent eye exam good and [place] [address] day 115 Hepatitis C screening 41 7974441 Z11.59 next lab Advance care planning 71 7967428 Z71.89 done Screening mammography 24 069332 Z12.31 needs [id number] Armin Hanson [facility] [address] [facility] [address] [address] 03/27/2023 13:28:05 03/27/2023 14:37:58 Sleep apnea 25729373 G47.30 doing really well and wearing mask every night Hypertensive disorder 38 764072 I10 stable and doing ok but it has been elevated on occ but she is careful and watching Type 2 bharat betes mellitus 14466327 E11.9 a1c is 5.3 now!!!!!! was 5.5 prior 5.4 and was 5.5 !!!!!! 5.6 but was 6.2 was 5.4 !she has lost another 20 lbrecent eye exam good and has had [place] [address] day 115 Hepatitis C screening 41 4010468 Z11.59 next lab Advance care planning 71 1782499 Z71.89 done Screening mammography 24 506457 Z12.31 needs Postviral cough 23911881 4 R05.3 will try netti pot or flonase if not helpful will get a cxr Type 2 bharat betes mellitus without complication 313872456 E11.9 doing fantastic [id number] Armin Hanson [facility] Internal Medicine [address] [facility],[place] [address] 07/03/2023 13:38:23 07/03/2023 14:33:32 Hypercholesterolemia 01046544 E78.00 LDL is 120 doing great with diet and exercise Diabetes mellitus 099295 09 E11.9 a1c is 5.9 Edema of l ower extremity 765133425 R60.0 currently is doing ok no bad swelling Hypertensive disorder 38 607404 I10 stable and doing ok but it has been elevated on occ but she is careful and watching [id number] Armin Hanson [facility] Internal Medicine [address] [facility] [place],[employer] [place] [address] 09/21/2023 08:42:50 09/21/2023 11:14:17 Hypercholesterolemia 18303472 E78.00 LDL is 120 doing great with diet and exercise Hypertensive disorder 38 068585 I10 stable and doing ok but it has been elevated on occ but she is careful and watching Type 2 bharat betes mellitus 17599380 E11.9 a1c is 5.5 was 5.3 now!!!!!! was 5.5 prior 5.4 and was 5.5 !!!!!! 5.6 but was 6.2 was 5.4 !admits to having been not so good with diet and relates that she gained weightover all doing fine as evidenced by her a1c [id number] Armin Hanson [facility] Internal Medicine [address] [facility], jessica Serrato [place] [address] 01/08/2024 13:44:11 01/08/2024 15:31:12 Type 2 diabetes mellitus without complication 010497436 E11.9 doing fantastic Hypercholesterolemia 136 74306 E78.00 LDL is 120 doing great with diet and exercise Hypertensive disorder 38 313750 I10 stable and doing ok but it has been elevated on occ but she is careful and watching Type 2 bharat betes mellitus 78222432 E11.9 a1c is 5.5 was 5.3 now!!!!!! was 5.5 prior 5.4 and was 5.5 !!!!!! 5.6 but was 6.2 was 5.4 !admits to having been not so good with diet and relates that she gained weightover all doing fine as evidenced by her a1c 603254 Armin Hanson [facility] Internal Medicine [address] [facility], [place] [address] 01/23/2024 10:00:00 01/23/2024 14:05:41 Depression screening 836212851 Z13.31 Neg Screening Paroxysmal atrial fibrillation 962267256 I48.0 will start carvedilol and eliquis stop the asawill have her see cardiologi st [id number] Armin Hanson [facility] Internal Medicine [address] [facility], [place] [address] 02/13/2024 10:46:17 02/13/2024 12:23:11 Renewal of prescription 957275190 Z76.0 utd Hypertensive disorder 38 527678 I10 stable and doing ok but it has been elevated on occ but she is careful and watching Depression screening 171 968172 Z13.31 Neg Screening Paroxysmal atrial fibrillation 077208047 I48.0 now in nsr !!!!! doing great and tolerating the metoprolol and xareltowe will cont she has cardiology appt but not until sept a devan ping Type 2 bharat betes mellitus without complication 657195960 E11.9 doing fantastic Edema of l ower extremity 193087109 R60.0 currently is doing ok no bad swelling 752115 Armin Hanson, [facility] Internal Medicine [address] [facility],[place] [address] 07/18/2024 13:20:48 07/18/2024 14:13:32 Adult health examination 873280950 Z00.00 she relates that this last covid infection took a lot out her still slowly recovering relates that she is doing ok but her low back is the most problem as the morning is especially bad overall seems to be sl better with moving and coping with her low back pain Screening for cardiovascular system disease 471115701 Z13.6 Screening for malignant neoplasm of colon 549050299 Z12.11 had colonoscop y had one tubular adenoma Screening mammography 24 665160 Z12.31 needs Hypertensive disorder 38 133391 I10 stable and doing ok but it has been elevated on occ but she is careful and watching Type 2 bharat betes mellitus 84057158 E11.9 a1c is 5.8 was 5.3 now!!!!!! was 5.5 prior 5.4 and was 5.5 !!!!!! 5.6 but was 6.2 was 5.4 !admits to having been not so good with diet and relates that she gained weightover all doing fine as evidenced by her a1c Paroxysmal atrial fibrillation 653571268 I48.0 now in nsr !!!!! doing great and tolerating the metoprolol and xareltowe will cont she has cardiology appt but not until sept a devan feng Hypercholesterolemia 136 99299 E78.00 LDL is 120 doing great with diet and exercise [id number] Armin Hanson DO [facility] Internal Medicine [address] [facility] [address],[place] [address] 10/28/2024 13:29:35 10/28/2024 14:28:35 Hypercholesterolemia 80793996 E78.00 LDL is 120 doing great with diet and exercise Diabetes mellitus 919092 09 E11.9 a1c is6.1 was 5.9 Hypertensive disorder 38 915206 I10 stable and doing ok but it has been elevated on occ but she is careful and watching Type 2 bharat betes mellitus without complication 802234408 E11.9 doing fantastic with negative retinal exam Edema of l ower extremity 554352721 R60.0 does have bit of edema [id number] Armin Hanson DO 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 Health Concerns Section Related Observation LastModified by Organization Detai ls LastModified Time None Recorded Concern Status LastModified by Organization Details LastModified Time None Recorded Advance Directives Directive None Recorded Payers Encounter Date Sequence Insurance Name Policy Number Policy Macdonald Covered Member ID Macdonald Member ID Guarantor Name 01/23/2024 1 [place] [employer] Bren S Renan [id number] Bren Renan 01/23/2024 2 [employer] INDEMNITY PLAN - UNICARE [id number] Bren E Renan [id number] Bren Renan 02/13/2024 1 [place] [employer] Bren S Renan [id number] Bren Renan 02/13/2024 2 [employer] INDEMNITY PLAN - UNICARE [id number] Bren E Renan [id number] Bren Renan 07/18/2024 1 [place] [employer] Bren S Renan [id number] Bren Renan 07/18/2024 2 [employer] INDEMNITY PLAN - UNICARE [id number] Bren E Renan [id number] Bren Renan 10/28/2024 1 [place] [facility] Bren Acosta Renan [id number] Bren Renan 10/28/2024 2 [facility] [id number] Bren E Renan [id number] Bren Renan 12/12/2024 1 [place] [facility] Bren Acosta Renan [id number] Bren Renan 12/12/2024 2 [facility] [id number] Bren E Renan [id number] Bren Renan Notes Date Note Type Note Provider Name and Address Organization Details Recorded Time 4 text/htm l relates had epsiode of [...] on er report was rapid afib Armin Hanson DO [address] [place], [address], [facility] Internal Medicine 01/23/2024 10:45:39 4 text/htm l reviewed her log re bp and pulse it seemed after a week of metoprolol and increased dose her symptoms stopped and pulse cme down and bp came downreviewed entire log Armin Hanson DO [address] [place], [address], [facility] Internal Medicine 02/13/2024 11:43:50 4 text/htm l [...] bathroom/shower; good lighting in the home Armin Hanson, DO [address] [facility] [employer], [place], [address], [facility] Martine Rosado Internal Medicine 07/18/2024 13:47:02 5 text/htm l Care Management - DiabetesReported bypatient.Self [...] vision; no confusion; no headaches; no fatigue here for rechk states has gained a little weight like 6 lbsa1c is 6.1 still fantastic has noted her sugars ran a little highknees are more sore too rAmin Hanson DO [address] [place], [address], [facility] Internal Medicine 10/28/2024 13:57:02 5 text/htm l patient is evaluated via tele/video assessment per patient consentduring current pandemic relates that she had lost half her vision in each eye for 20 min went to optho and told she had ocular migrainetold her to have a further w/up including carotid UShas been fine sinceyesterday was dehydrated and had an episode of palpitations and was seen on her monitor and has been fine since Armin Hanson DO [address] [place], [address], [facility] Internal Medicine 12/12/2024 15:25:30 OBGyn Episode No OBEpisode recorded.
--- OUTSIDE RECORDS SUMMARY | 2025-01-21 11:15 | XMS_ITS | Clinical Summary ---
Author Organization [facility] Address [address] [place] [address] [place] [address] Phone Care Team Providers Care Skates Operator Name Role Phone Armin Rueda Primary Care Provider [phone] Social History Tobacco Use Types Packs/Day Years [...] Medical Devices Not on file Care Teams Skates Operator Relationship Specialty Start Date End Date Armin Rueda DO [email or web address] PCP - General Internal Medicine 10/12/20 Additional Source Comments The information contained in this document represents components of the legal health record. It is not the complete legal health record.[facility]
[2025-01-21 14:18] LABS: Estimated Average Glucose 117 mg/dL; Hemoglobin A1C 135.4507 umol/L; Hemoglobin A1c % 5.7 % (<6.0); Total Hemoglobin (HGBA1C) 3470.0129 umol/L
== END 2025-01-21 10:04 | disposition home or self-care (01) ==
LOC: HO.MANLDS 10:03
PROVIDERS: Visit Provider Internal Medicine
DX: E11.9 Type 2 diabetes mellitus without complications (principal); E78.00 Pure hypercholesterolemia, unspecified
CPT/HCPCS: 36415; 83036

== ENCOUNTER 2025-05-05 09:28 | Outpatient (REF) | payer MEDICARE, OTHER, SELFPAY ==
--- OUTSIDE RECORDS SUMMARY | 2025-05-05 10:32 | XMS_ITS | Clinical Summary ---
Author Organization [facility] Address [address] [place] [address] Care Team Providers Care Accounts Receivable Administrator Name Role Phone Armin Rueda Primary Care Provider [phone] Allergies Active Allergy Reactions Criticality Noted Date [...] Active Problems No known active problems Immunizations Immunization Administration Dates Next Due COVID-19, mRNA (Pfizer Pre F all 2022) Monovalent, 30 mcg/0.3 ml 06/24/2021,12/08/2020,11/17/2020 Covid-19, mRNA (Pfizer Pre F 2022) Bivalent, 30 mcg/0.3 ml justin-sucrose (12+) [...] 97 09/27/2024 3:53 PM EST Temperature 36.9 C (98.5 F) 09/27/2024 3:53 PM EST Respiratory Rate 18 04/26/2024 4:08 PM EDT [...] 12/16/2021, 06/24/2021, Additional history exists Influenza (#1) 2025 08/20/2023, 1002/2022, 07/01/2021, Additional history exists DTaP/Tdap/Td (2 - Td or Tdap) 10/20/2025 10/20/2015 Colon Cancer Screening 01/27/2031 01/27/2021 Zoster (Zostavax) Discontinued 09/16/2013 Cologuard Dates Discontinued 06/29/2020 LDL Cholesterol Discontinued 06/27/2023, 06/17, 10/12/2020 Colonoscopy Discontinued HPV Vaccine (No Doses Required) Completed Hep A Aged Out No longer eligi [...] Pap Smear Discontinued Insurance MEDICARE PART B [employer]ION SUPPLEMENTAL [place] [id number] Care Teams Accounts Receivable Administrator Relationship Specialty Start Date End Date Armin Rueda [facility] INTERNAL MEDICINE [address] [place] [id number] PCP - General Internal Medicine 01/03/14
--- OUTSIDE RECORDS SUMMARY | 2025-05-05 10:32 | XMS_ITS | Patient Health Record ---
Author Organization [facility] Address [address] [address] Care Team Providers Care Clam Treader Name Role Phone Armin Rueda Primary Care Provider Az Rubio Unavailable [phone] Allergies Allergen (clinical drug ingredient) Drug/Non Drug Allergy documented on EMR Reaction Allergy Type Onset Date Status Substance with 9-xvegpds-3-methylgluta ryl-coenzyme A reductase inhibitor mechanism of action (substance) Statins Unknown Drug Allergy Active Reason For Referral No Information Medications Medication SIG (Take, Route, Frequency, Duration) Notes Start Date End Date Status metFORMIN HCl 1000 MG TAKE 1 TABLET BY M OUTH TWICE DAILY Oral; Duration: 90 Not-Taking OneTouch Delica Lancets 30G - TEST QD; Duration: 90 Active CPAP machine Set pressure Please include all necessary supplies including heated tubing, headgear, filters, water chamber, etc. Enroll in online monitoring 03/03/2021 Active OneTouch Verio - TEST TWICE A DAY In Vitro; Duration: 90 Active OneTouch Delica Plus [id number] - TEST EVERY DAY; Duration: 90 Active Lisinopril 40 MG TAKE 1 TABLET BY JANIYA TH EVERY DAY Oral; Duration: 90 Active Ozempic (1 MG/DOSE) 2 MG/1.5ML INJECT 1 MG EVERY WEEK UNDER THE SKIN DIRECTED Subcutaneous; Duration: 84 Active Multivitamin - 1 tablet Orally Once a day; Duration: 30 day(s) Active ZyrTEC Allergy 10 MG 1 tablet Orally Onc e a day; Duration: 30 day(s) Active metFORMIN HCl 500 MG 1 tablet with a brooke l Orally Once a day; Duration: 30 day(s) Active Erythromycin 5 MG/GM Ophthalmic; Duration: 7 Not-Taking Aspirin 81 MG 1 tablet Orally Once a day; Duration: 30 day(s) Active Social History Tobacco Use: Social History Observation Description Date Details (start date - stop date) Never Smoker NA - NA Tobacco Use/Smoking Question Answer Notes Are you a nonsmoker Problems Problem Type SNOMED Code ICD Code Onset Dates Problem Status W/U Status Risk Notes Problem Sleep apnea (G47.30) Active confirmed Problem Obstructive sleep apnea syndrome (52826990) BRITTNEY (obstructive sleep apnea) (G47.33) Active confirmed Problem Atrial fibrillation (25303049) Atrial fibrillation (I48.91) Active confirmed Plan Of Treatment No Information Insurance Providers Payer Name Payer Address Payer Phone Subscriber Number Group Number Insured Name Patient Relationship to Insured Coverage Start Date Coverage End Date MEDICARE [address] [place], [place] [id number] Bren Urrutia Self - patient is the insured [facility] INDEMNITY PLAN [address] [place], [place] [id number] Bren Urrutia Self - patient is the insured Medical (General) History Medical History History ICD Code Atrial fibrillation I48.91 Sleep concern Z76.89 Diabetes Surgical History Surgery Date(Month/Year) left knee-torn meniscus 1999 Hospitalization History Reason Date(Month/Year) Child 1970 Child 1971 Child 1980
--- OUTSIDE RECORDS SUMMARY | 2025-05-05 10:32 | XMS_ITS | Clinical Summary ---
Author Organization [facility] Address [address] [place] [address] Care Team Providers Care Drum Operator Name Role Phone Armin Rueda Primary Care Provider [phone] Allergies Active Allergy Reactions Criticality Noted Date Comments Owgynch-Wbd-Xhv Reductase Inhibitors Muscle Pain,Other (see comments) Medium [...] 82 05/26/2024 10:31 AM EDT Temperature 36.8 C (98.2 F) 01/21/2024 6:09 PM EDT Respiratory Rate 18 05/26/2024 10:31 AM EDT [...] Info) Description 07/06/2025 11:20 AM EDT Follow-Up [facility] 4th floor Cardiology Medicine [address] [place] [address] Chisel Mortiser Operator: Matilda Moore, Nazia Nelson MD [address] [place] [address] Health Maintenance Due Date Last Done Comments Hepatitis C Screening 1950 Medicare AWV 1951 Ophthalmology Exam 1958 Osteoporosis Screening 1998 Zoster Vaccines (2 of 3) 11/11/2013 09/16/2013 RSV Vaccine (60+ years old and patients) (1 - 1-dose 75+ series) 2023 Hemoglobin A1C 12/27/2023 06/27/2023, 09/18, 09/28/2016, Additional history exists COVID-19 Vaccine (6 - 2024-25 season) 2024 07/29/2022, 12/16/2021, 06/24/2021, Additional history exists Urine Microalbumin 06/27/2024 06/27/2023 Alcohol/Substance Use Screening 09/17/2024 Depression Screening and Follow-Up 09/17/2024 Health Care Proxy Review 09/17/2024 Social Drivers of Health Annual Screening 09/17/2024 Basic Metabolic Panel 01/20/2025 01/21/2024 , 06/27/2023, 09/28/2016 Influenza Vaccine (#1) 2025 , 06/22/2022, 07/01/2021, Additional history exists DTaP,Tdap,and Td Vaccines (2 - Td or Tdap) 10/20/2025 10/20/2015 Colonoscopy 01/27/2026 01/27/2021, 01/15, 01/27/2021, Additional history exists Mammogram Discontinued 05/31/2007 Pneumococcal Vaccine: 50+ Years Completed 04/10/2017, 03/05/2015 Hepatitis B Vaccines Aged Out No long er eligible based on patient's age to complete this topic Procedures * Due to [place] Talk[place] law, this organization might not be sharing negative HIV tests. Procedure Name Priority Date/Time Associated Diagnosis Comments BASIC METABOLIC PANEL STAT 01/21/2024 12:10 PM EDT COLONOSCOPY 01/27/2021 HEMOGLOBIN A1C Routine 09/28/2016 9:07 AM EST ROZINA BILATERAL SCREENING DIGITAL MAMMOGRAM Routine 05/31/2007 2:03 PM EDT from Last 3 Months or Most Recently Relevant to Health Maintenance Results * Due to [place] law, this organization might not be sharing negative HIV tests. * (ABNORMAL) Basic Metabolic Panel (01/21/2024 12:10 PM EDT) NA 140 135 - 145 mmol/L 01/21/2024 1:03 PM EDT [facility] K 4.1 3.5 - 5.3 mmol/L 01/21/2024 1:03 PM EDT [facility] Cl 107 97 - 110 mmol/L 01/21/2024 1:03 PM EDT [facility] CO2 25 24 - 32 mmol/L 01/21/2024 1:03 PM EDT [facility] BUN 19 7 - 23 mg/dL 01/21/2024 1:03 PM EDT [facility] Creatinine 1.25(H) 0.50 - 1.20 mg/dL 01/21/2024 1:03 PM EDT [facility] Glucose 147(H) 70 - 99 mg/dL 01/21/2024 1:03 PM EDT [facility] Calcium 8.6(L) 8.7 - 10.7 mg/dL 01/21/2024 1:03 PM EDT [facility] Anion Gap 8 5 - 15 01/21/2024 1:03 PM EDT [facility] eGFR 45(L) >=60 mL/min/1 .73m2 01/21/2024 1:03 PM EDT [facility] Comment:The estimated glomer ular [...] Protocol Unv Adult Treatment MD LAB BLOOD MARTINEZ CHILDERS Final Result [facility] [address] [place] [address], [place] * COLONOSCOPY (01/27/2021) Narrative Procedure Note Roberto Garcia MD - 01/27/2021 12:33 PM EDT Gastroenterology Patient Name: Bren Urrutia Procedure Date: 01/27/2021 12:33 PM Date of : 1950 Admit Type: Outpatient Age: 70 Room: [place] [address] Gender: Female Note Status: Finalized Attending MD: [...] procedure by the physician, the nurse, the animation camera operator and the film laboratory technician. Theprocedure was verified in the procedure [...] 9:07 AM EST) Hemoglobin A1C 11.4(H) <5.7 [facility] Comment: UNITS OF MEASURE: % of total Hgb According to ADA guidelines, hemoglobin A1c <7.0% represents optimal control in non- diabetic patients. Different metrics may apply to specific patient populations. Standards of Medical Care in Diabetes-2013. Diabetes Care. 2013;36:s11-s66 For the purpose of screening for the presence of diabetes <5.7% Consistent with the absence of diabetes 5.7-6.4% Consistent with increased risk for diabetes (prediabetes) >or=6.5% Consistent with diabetes This assay result is consistent with diabetes mellitus. Currently, no consensus exists for use of hemoglobin A1c for diagnosis of diabetes for children. eAG (MG/DL) 280 () (calc) [facility] eAG (MMOL/L) 15.5 () (calc) [facility] 09/28/2016 9:07 AM EST 09/28/2016 10:36 AM EST Armin Rueda LAB BLOOD ORDERABLES Final Resul t [facility] [address] [facility] 3rd Floor, [place] [address], * [facility] Bilateral Screening Digital Mammogram (05/31/2007 2:03 [...] Recently Relevant to Health Maintenance Insurance MEDICARE [facility] Advance Directives Documents on File Type Date Recorded Patient Group Care Worker Expl anation Advance Directive 07/08/2010 12:00 AM sf Medical Dec Making (Adv.Dir) * Full Code (Latest Code Status on File) Date Activated Date Inactivated Comments 01/27/2021 2:00 PM 01/27/2021 4:52 PM Care Teams Drum Operator Relationship Specialty Start Date End Date Armin Rueda [address] [place] [id number] PCP - General 04/05/17
--- OUTSIDE RECORDS SUMMARY | 2025-05-05 10:32 | XMS_ITS | Clinical Summary ---
Author Organization [facility] Address [address] [place] [address] Phone Care Team Providers Care Broker Agricultural Produce Name Role Phone Armin Rueda Primary Care Provider [phone] Social History Tobacco Use Types Packs/Day Years [...] with a working camera? Not on file Comments Unknown Sex and Gender Information Value Date Recorded Sex Assigned at Not on file Legal Sex Female 10:05 PM EDT Gender Identity Not on file Sexual Orientation Not on file Plan of Treatment Not on file Medical Devices Not on file Insurance [place] [id number] [employer] MEDICARE SUPPLEMENT MEDICARE PART A & B [facility] MEDICARE SUPPLEMENT MEDICARE PART A & [place] [address] [place] [address] MEDICARE SUPPLEMENT MEDICARE PART A & B MEDICARE SUPPLEMENT MEDICARE PART A & B Member Subscriber Plan / Payer (Ef fective 2017-Present) Name:Bren Urrutia Member ID:[id number] Relation to Subscriber:Self Name:Bren Urrutia Subscriber ID:[id number] Payer ID:[id number] Group ID:Not on file Type:Medicare Address: [place] [address] [employer] EXTENSION MEDICARE SUPPLEMENT MEDICARE PART A & B [employer]TENS[employer] MEDICARE SUPPLEMENT MEDICARE PART A & B [email or web address] MEDICARE SUPPLEMENT MEDICARE PART A & B [email or web address] MEDICARE SUPPLEMENT MEDICARE PART A & B [facility] EXTENSION MEDICARE SUPPLEMENT Care Teams Broker Agricultural Produce Relationship Specialty Start Date End Date Armin Rueda DO PCP - General Internal Medicine 10/12/20 Additional Source Comments The information contained in this document represents components of the legal health record. It is not the complete legal health record.[facility]
[2025-05-05 13:10] LABS: MANUAL DIFF FLAG NO
[2025-05-05 13:14] LABS: Hematocrit 34.7 % (37.0-47.0); Hemoglobin 11.3 g/dl (12.0-16.0); Imm Gran Abs Auto 0.01 X10*3/uL (0.00-0.03); Imm Gran Pct Auto 0.2 % (0.0-0.4); Lymphocytes Absolute Auto 1.7 X10*3/uL (1.2-4.9); Mean Corpuscular HGB Conc 32.6 g/dl (31.0-35.0); Mean Corpuscular Hemoglobin 31.4 pg (27.0-33.0); Mean Corpuscular Volume 96.4 fL (80.0-98.0); NRBC Abs Auto 0.000 X10*3/uL (0.0-0.012); NRBC Pct Auto 0.0 /100WBC (0.0-0.2); Platelet Count 198 X10*3/uL (160-400); Red Blood Count 3.60 X10*6/uL (4.20-5.50); White Blood Count 5.7 X10*3/uL (4.8-10.8)
[2025-05-05 13:43] LABS: Alanine Aminotransferase 18 U/L (0-31); Albumin Level 4.0 g/dL (3.5-5.0); Alkaline Phosphatase 44 U/L (39-117); Anion Gap 13 (12-20); Aspartate Amino Transferase 33 U/L (5-31); Blood Urea Nitrogen 22 mg/dL (9-16); Calcium 8.9 mg/dL (8.4-10.2); Carbon Dioxide 21 mmol/L (22-29); Chloride 110 mmol/L (96-108); Cholesterol 151 mg/dL (<200); Estimated Glomerular Filt Rate 45; HDL Cholesterol 43 mg/dL (>40); Potassium 4.8 mmol/L (3.3-5.1); Sodium 139 mmol/L (135-145); Total Protein 6.6 g/dL (6.5-8.0); Triglycerides 101 mg/dL (<150)
[2025-05-05 13:48] LABS: Hemoglobin A1C 135.9273 umol/L; Total Hemoglobin (HGBA1C) 3518.6636 umol/L
== END 2025-05-05 09:29 | disposition home or self-care (01) ==
LOC: HO.MANLDS 09:28
PROVIDERS: Visit Provider Internal Medicine
DX: E11.9 Type 2 diabetes mellitus without complications (principal); E78.00 Pure hypercholesterolemia, unspecified
CPT/HCPCS: 36415; 80053; 80061; 83036; 85025

== ENCOUNTER 2025-07-27 08:37 | Outpatient (REF) | payer MEDICARE, OTHER, SELFPAY ==
--- OUTSIDE RECORDS SUMMARY | 2025-07-27 08:58 | XMS_ITS | Clinical Summary ---
Author Organization [facility] Address [address] [place] [address] Care Team Providers Care Draw End Hand Name Role Phone Armin Rueda Primary Care Provider [phone] Allergies Active Allergy Reactions Criticality Noted Date [...] series) 2023 COVID-19 Vaccine (6 - season) 2025 07/29/2022, 12/16/2021, 06/24/2021, Additional history exists Influenza [...] MEDICARE EXTENSION SUPPLEMENTAL [employer] [id number] Care Teams Draw End Hand Relationship Specialty Start Date End Date Armin Rueda [facility] INTER[facility] MEDICINE [address] [place] [id number] PCP - General Internal Medicine 01/03/14
--- OUTSIDE RECORDS SUMMARY | 2025-07-27 08:59 | XMS_ITS | Data Portability ---
Author Organization [facility], Telehealth Patient Home Address [address] [place] [address] Assessment Encounter Date Assessment Date Assessment LastModified by Organization Details LastModified Time 07/18/2024 07/18/2024 Patient presente d to office [...] living. Not available 04/16/2024 14:10:51 10/28/2024 10/28/2024 [id number] [place] [id number] (SENIOR STRUCTURAL ENGINEER) MDM HIGH MUST MEET 2 OUT OF [...] patient. Not available 10/28/2024 13:56:40 12/12/2024 12/12/2024 [id number] [place] [id number] (SENIOR STRUCTURAL ENGINEER) : MDM LOW MUST MEET 2 OF [...] THE ELEMENTS COVERED Not available 12/12/2024 15:25:04 01/27/2025 01/27/2025 .. [email or web address] Not available 14:35:01 Plan of Treatment Reminders Order Date Submit Date Provider Last Modified By Organization Details Last Modified Time Details Appointments MEDICARE ANNUAL WELLNESS 2024 02:45P M DR HANSON Not available Not available Not available FOLLOW UP 15 2025 01:30P M DR HANSON Not available Not available Not available Lab lipid panel, blood 2023 024 [facility], [address] [place] [address], [place], [address], 07/18/2024 13:53:52 hemoglobi n, gastroint estinal, stool 2023 024 [facility], [address] [place] [address], [place], [address], 07/18/2024 13:53:52 CBC w/ auto diff 2023 024 [facility], [address] [place] [address], [place], [address], 07/18/2024 13:53:52 CMP, serum or plasma 2023 024 [facility], [address] [place] [address], [place], [address], 07/18/2024 13:53:52 Referral vascular surgeon referral 2024 025 [facility], [address] [place] [address], [address], 07/07/2025 08:31:01 Procedures None recorded. Surgeries None recorded. Imaging US, duplex, carotid artery - recent episode of visual field loss 2024 025 [facility], [address] [place], [address], 12/15/2024 11:21:17 MAMMO, screening , digital, bilateral 2023 024 [facility], [address] [place] [address], [address], 08/01/2024 08:20:19 Medication Orders ezetimibe 10 mg tablet 2023 024 [id number], [address] [place] [address], [id number], 07/18/2024 13:46:42 Patient TargetsNo targets recorded. Patient Instructions Encounter Date Encounter Id Patient Instructions Last Modified By Organization Details Last Modified Time 07/18/2024 [id number] Discussed and explained advance directives such as standard forms to the . Face to face discussion lasted for a duration of ___ minutes. Not available 04/16/2024 14:10:51 10/28/2024 [id number] leg and ankle edema: care instructions Not available 10/28/2024 13:55:57 type 2 diabetes: care instructions Not available 10/28/2024 13:55:57 01/27/2025 [id number] sleep apnea: car e instructions Not available 01/27/2025 14:40:00 05/12/2025 [id number] endovenous ablation for varicose veins: before your procedure Not available 05/12/2025 13:54:03 learning about endovenous ablation for varicose veins Not available 05/12/2025 13:54:03 Reason for Referral Vascular Surgeon Referral fo r Venous varices Referring Physician: Armin Hanson, Internal Medicine, Encounter Date: 05/12/2025 Results Created Date Observation Date Name Description Value Unit Range Abnormal Flag Note LastModifiedBy Organization Detail LastModifiedTime 08/13/20 24 08/13/2024 trans -thor acic echoc ardio gram (TTE) (PROC ) No observ ation record ed. [facility] (Cardiac Ultrasound) [address] [place], [address], 08/13/2024 11:41:32 01/03/20 25 12/23/2024 US, duple x, carot id arter y No observ ation record ed. [facility] [address] [place], [address], 01/02/2025 15:24:37 07/06/20 25 07/06/2025 elect rocar diogr am, routi ne ECG, 12 leads min No observ ation record ed. [email or web address] [facility] [address] [place], [address], 07/07/2025 09:08:07 Result Notes None recorded. Problems Name Problem SNOMED Code Status Onset Date Resolution Date Notes Provider Name and Address Organization Details Recorded Time Type 2 diabetes mellitus 48818880 Active 2017 [facility] 5 09:55:25 Celiac disease 059308778 Active 2017 [facility] 5 09:55:25 Hypertensi ve disorder 80152654 Active 2017 [facility] 09[facility]:25 Cataract 022355556 Active 2017 [facility] 09:55:25 Edema of lower extremity 832108970 Active 2017 [facility] 09:55:25 Bunion 787362986 Active 2017 [facility] 5 09:55:16 Hyperchole sterolemia 61622422 Active 2017 Armin Hanson, [address] [place] [address], [address], [facility] 8 14:13:39 Sacrum sprain 241880705 Active 2018 Armin Hanson DO [address] [place] [address], [address], [facility] 9 14:18:29 Sciatica 77250004 Active 2018 Armin Hanson DO [address] [place] [address], [address], [facility] 9 14:19:03 Spinal stenosis of lumbar region 19672606 Active 2018 Armin Hanson DO [address] [place] [address], [address], [facility] 9 14:22:19 Sleep apnea 67361176 Active 2020 Armin Hanson DO [address] [place] [address], [address], [facility] 1 14:07:48 Knee joint painful on movement 491754923 Active 2020 [facility] 5 09:55:25 Diabetes mellitus 11443939 Active 2021 [facility] 5 09:55:25 Acute sinusitis 91084164 Active 2022 Jo Annmarlene Olson null, [facility] 5 09:55:16 Postviral cough 248908954 Active 2022 Jo Ann Wesley null, [facility] 5 09:55:16 Type 2 diabetes mellitus without complicati on 254023540 Active 2022 Jo Annmarlene Olson null, [facility] 5 09:55:25 COVID-19 802536944 Active 2022 Jo Ann Wesley null, [facility] 5 09:55:16 Acute conjunctiv itis 06270512 Active 2023 Jo Annmarlene Olson null, [facility] 5 09:55:16 Paroxysmal atrial fibrillati on 035169920 Active 2023 Jo Ann Olson null, [facility] 5 09:55:25 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 Procedures Surgical History Date Name Laterality Status Provider Name and Address Organization Details Recorded Time 01/28/20 21 Colonoscopy completed Armin Hanson DO [address] [place] [address], [address], [facility] 01/27/2021 16:03:29 Imaging Results None recorded. Procedure Notes None recorded. Medical Equipment None Reported. Allergies Allergen ID Allergen Name Allergen Category Reaction Reaction Severity Criticality Documentation Date Start Date Code Code System Note Provider Name and Address Organization Details Recorded Time 2646 Product containin g 3-hydroxy -3-methyl glutaryl- coenzyme A reductase inhibitor (product) medicatio n myalgias (muscle pain) Not available Not available 09/18/2018 63321 009 SNOMED incre ased blood sugar s Aby [facility] 9 14:59:08 Medications Name Sig [...] Ultra-Fine Amy Pen Needle 32 gauge x 5/32 Use 1 needle subcutane ously at bedtime active Not Available Not Available No t Available Xarelto 10 mg tablet TAKE 1 TABLET BY MOUTH EVERY DAY 07/18 completed Not Available Not Available Not Available Xarelto 20 mg tablet active Not Available Not Available No t Available OneTouch Verio test strips USE TO TEST TWICE DAILY. 2024 active Not Available Not Available Not Avbetty Hassan U-100 Insulin 100 unit/mL (3 mL) [...] UNDER THE SKIN ONCE EVERY WEEK DIRECTED 01/28 completed Not Available Not Available Not Available BinaxNOW COVID-19 Ag Self Test kit [...] completed Not Available Not Available Not Available Zepbound 10 mg/0.5 mL subcutaneou s pen injector ADMINISTE R 10 MG UNDER THE SKIN WEEKLY active Not Available Not Available No t Available Zepbound 12.5 mg/0.5 mL subcutaneou s pen injector Inject 0.5 mL every week by subcutane ous route as directed for 30 days. 07/01 completed Not Available Not Available Not Available Vitals Date Recorded Body height Body mass index (BMI) Body weight Heart rate Oxygen saturation Oxygen saturation in Arterial blood by Pulse oximetry Systolic And Diastolic Provider Name and Address Organization Details Last Updated DateTime 5 172.72 cm 40.6 kg/m2 169289. 16 g 80 /min 98 % 98 % 134/70 mm[Hg] Dc Ling [facility] 5 13:41:50 Date Recorded Body height Body mass index (BMI) Body weight Heart rate Oxygen saturation Oxygen saturation in Arterial blood by Pulse oximetry Systolic And Diastolic Provider Name and Address Organization Details Last Updated DateTime 5 172.72 cm 40.6 kg/m2 480229. 16 g 76 /min 98 % 98 % 130/74 mm[Hg] Patricia Liebermanmond [facility] 5 14:15:15 Date Recorded Body height Body mass index (BMI) Body weight Oxygen saturation Oxygen saturation in Arterial blood by Pulse oximetry Heart rate Systolic And Diastolic Provider Name and Address Organization Details Last Updated DateTime 5 172.72 cm 37.1 kg/m2 077775. 26 g 98 % 98 % 90 /min 128/74 mm[Hg] Avril De La Cruz [facility] 5 13:36:45 Date Recorded Body height Body mass index (BMI) Body weight Heart rate Oxygen saturation Oxygen saturation in Arterial blood by Pulse oximetry Systolic And Diastolic Provider Name and Address Organization Details Last Updated DateTime 4 172.72 cm 40.3 kg/m2 026118. 98 g 82 /min 98 % 98 % 138/86 mm[Hg] Dc Ling [facility] 4 13:29:39 Social History Question Answer Notes LastModified by Organizat ion Details LastModified Time Tobacco Smoking Status Former Smoker @ 14yo Dc garduno [facility] 01/23/2024 10:23:29 What Was The Date Of Your Most Recent Tobacco Screening? 05/12/2025 [email or web address] Information not available 05/12/2025 Sex: Unknown Functional Status Question Answer Note LastModified by Organization D etails LastModified Time Do you or have you ever used any other forms of tobacco or nicotine? No Information not available 11/20/2022 Mental Status None recorded. Family History Nothing Reported. Medical History No medical history recorded. Gynecological HistoryNo gynecological history recorded. Obstetrics History GPAL:G 0 P 0 0 0 0 Immunizations Vaccine Type Date Status Note Provider Nam e and Address Organization Details Recorded Time COVID-19, mRNA, LNP-S, PF, 30 mcg/0.3 mL dose 1 [facility] 08:17:28 COVID-19, mRNA, LNP-S, PF, 30 mcg/0.3 mL dose 2 completed [facility]/28/2022 08:17:36 Influenza, split virus, quadrivalent, preservative 1 completed [facility] 02/28/2022 08:17:53 Influenza, split virus, quadrivalent, preservative 8 completed [facility] 08/27/2018 14:20:16 zoster live 3 completed [facility] 08/27/2018 14:18:25 Pneumococcal conjugate PCV 13 5 completed Aby Etienne [facility] 08/28/2018 13:57:46 pneumococcal polysaccharide PPV23 7 completed [facility] 08/28/2018 13:57:57 Influenza, split virus, quadrivalent, preservative 0 completed Pattie Tam [facility] 06/08/2020 10:56:58 Influenza, split virus, quadrivalent, preservative 9 dagoberto Etienne [facility] 07/22/2019 13:51:31 Tdap 6 [facility] 02/01/2021 09:53:19 COVID-19, mRNA, LNP-S, PF, 30 mcg/0.3 mL dose 1 [facility] 02/01/2021 09:53:46 COVID-19, mRNA, LNP-S, PF, 30 mcg/0.3 mL dose 1 completed Aby Etienne [facility] 02/01/2021 09:53:51 Past Encounters Encounter ID Performer Location Encounter Start Date Encounter Closed Date Diagnosis/Indication Diagnosis SNOMED-CT Code Diagnosis ICD10 Code Diagnosis IMO Codes Diagnosis Note [id number] Armin Hanson [facility] [address] [facility], [place] [address] 05/01/2018 15:10:53 05/01/2018 16:26:29 Hypertensive disorder 30114298 I10 stable and doing ok Type 2 bharat betes mellitus 67667255 E11.9 a1c is 5.5 and doing ok but has gained some wgt Edema of l ower extremity 587962940 R60.0 currently ius doing oik no bad swelling [id number] Armin Hanson [facility] [address] [facility], [place] [address] 08/27/2018 13:38:36 08/27/2018 15:37:08 Hypertensive disorder 24302021 I10 stable and doing ok Type 2 bharat betes mellitus 21635224 E11.9 a1c is 5.5 and doing ok but has gained some wgt Hypercholesterolemia 136 81994 E78.00 [place] [id number] Armin Hanson [facility] [address] [facility], [place] [address] 11/15/2018 14:51:27 11/15/2018 15:28:14 Lumbago with sciatica 431948640 M54.41 has marked discomfort now with examinatio n of her and will get her an MRI pain is intractabl e and she is now getting right leg muscle weakness and her leg is giving out on her seems to have a diminished achilles DTR [id number] Armin Hanson [facility] [address] [facility], [place] [address] 12/24/2018 13:39:45 12/24/2018 14:51:27 Adult health examination 461148656 Z00.01 relates that she is doing ok but her low back is the most problem as the morning is especially bad overall seems to be sl better with moving and coping with her low back pain Active or passive immunization 596151436 Z23 [id number] Armin Hanson [facility] [address] [facility] [address],[place] [address] 04/07/2019 11:10:34 04/07/2019 12:16:34 Type 2 diabetes mellitus 54920842 E11.9 a1c is 5.6 and doing ok Hypertensive disorder 38 830008 I10 stable and doing ok Hepatitis C screening 41 2855231 Z11.59 next lab Osteopenia 488362268 M85 .80 [id number] Armin Hanson [facility] [address] [facility] [address],[place] [address] 07/22/2019 13:48:19 07/22/2019 14:39:19 Type 2 diabetes mellitus 27844173 E11.9 a1c is 5.6 and doing ok Hypercholesterolemia 136 01725 E78.00 atorvastat in not tolerated Hypertensive disorder 38 263672 I10 stable and doing ok Esophageal dysphagia 408 07523 R13.19 will order test Obstructiv e sleep apnea syndrome 14091074 G47.33 given afib episodes and symptoms of apnea and snoring will refer her [id number] Armin Hanson [facility] [address] [facility] [address] [place] [address] 10/28/2019 13:16:08 10/28/2019 14:31:56 Hypercholesterolemia 37238241 E78.00 atorvastat in not tolerated Type 2 bharat betes mellitus 47589886 E11.9 a1c is 6.2 and doing ok but her diet is a chocolate diet and this is because of her stress with grandson Hypertensive disorder 38 747093 I10 stable and doing ok [id number] Armin Hanson [facility] [address] [facility] [address],[place] [address] 02/25/2020 10:45:54 02/25/2020 12:01:42 Hypercholesterolemia 76369966 E78.00 atorvastat in not tolerated Hypertensive disorder 38 875826 I10 stable and doing ok but it has been elevated today Type 2 bharat betes mellitus 30347822 E11.9 a1c is 5.4 !!!!!!!!an d doing ok and ozempic has worked incredible [id number] Armin Hanson [facility] [address] [facility] [address] [place] [address] 06/08/2020 10:45:14 06/08/2020 13:39:54 Administration of influenza vaccine 85435802 Z23 [id number] Armin Hanson [facility] [address] [facility],[place] [address] 06/14/2020 10:30:10 06/14/2020 11:54:01 Type 2 diabetes mellitus 64265293 E11.9 a1c is 5.4 !!!!!!!!an d doing ok and ozempic has worked incredible we will stop the metformin! !! rechk in 3 mo Hypertensive disorder 38 869677 I10 stable and doing ok but it has been elevated today Edema of l ower extremity 101566840 R60.0 currently ius doing ok no bad swelling Hypercholesterolemia 136 84686 E78.00 LDL is 120 doing great with diet and exercise Screening for malignant neoplasm of colon 881367312 Z12.11 [id number] Armin Hanson [facility] [address] [facility],[place] [address] 10/18/2020 08:42:03 10/18/2020 13:32:19 Hypertensive disorder 18495636 I10 stable and doing ok but it has been elevated on occ but she is careful and watching Edema of l ower extremity 801602681 R60.0 currently ius doing ok no bad swelling Type 2 bharat betes mellitus 76781519 E11.9 a1c is 6.2 was 5.4 !!!!!!!!an d doing ok and ozempic has worked incredible will watch [place] [id number] Armin Hanson [facility] [address] [facility] [address] [place] [address] 02/02/2021 13:19:40 02/02/2021 14:21:08 Adult health examination 443856864 Z00.00 relates that she is doing ok but her low back is the most problem as the morning is especially bad overall seems to be sl better with moving and coping with her low back pain Screening for malignant neoplasm of colon 317884815 Z12.11 had colonoscop y had one tubular adenoma Screening mammography 24 135205 Z12.31 refused [id number] Armin Hanson [facility] [address] [facility], [place] [facility] [address] 06/14/2021 08:14:24 06/14/2021 15:06:55 Edema of lower extremity 049967782 R60.0 currently ius doing ok no bad swelling Hypercholesterolemia 136 92371 E78.00 LDL is 120 doing great with diet and exercise Hypertensive disorder 38 557540 I10 stable and doing ok but it has been elevated on occ but she is careful and watching Type 2 bharat betes mellitus 14265133 E11.9 a1c is 6.2 was 5.4 !!!!!!!!an d doing ok and ozempic has worked incredible will watch if this cont to go uprecent eye exam good and has had neg retinopath y eval recently Sleep apnea 35209821 G47 .30 doing really well and wearing mask every night Knee joint painful on movement 600115654 M25.569 will cont with neoprene brace [id number] Armin Hanson [facility] [address] [facility], [place] [address] 11/11/2021 07:56:55 11/14/2021 14:00:43 Hypertensive disorder 42414289 I10 stable and doing ok but it has been elevated on occ but she is careful and watching Type 2 bharat betes mellitus 01600886 E11.9 a1c is now 5.6 but was 6.2 was 5.4 !!!!!!!!an d doing ok and ozempic has worked incredible will watch if this cont to go uphas not been too good with diet lately and has gained wgtrecent eye exam good and has had neg retinopath y eval recently [id number] Armin Hanson [facility] [address] [facility],[place] [address] 03/06/2022 12:02:40 03/10/2022 08:08:55 Hypertensive disorder 12247488 I10 stable and doing ok but it has been elevated on occ but she is careful and watching Type 2 bharat betes mellitus 72361818 E11.9 a1c is now 5.5 !!!!!! 5.6 but was 6.2 was 5.4 !!!!!!!!an d doing ok and ozempic has worked incredible will watch if this cont to go upshe has lost 33 # of wgtrecent eye exam good and has had [place] [address] day 110 Edema of l ower extremity 882817196 R60.0 currently is doing ok no bad swelling [id number] Armin Hanson, [facility] [address] [facility],[place] [address] 06/09/2022 13:17:39 06/09/2022 15:52:16 Type 2 diabetes mellitus 32100998 E11.9 a1c is now 5.4 and was 5.5 !!!!!! 5.6 but was 6.2 was 5.4 !!!!!!!!an d doing ok and ozempic has worked incredible will watch if this cont to go upshe has lost another 10 lbrecent eye exam good and has had [place] [address] day 110 Hypertensive disorder 38 642514 I10 stable and doing ok but it has been elevated on occ but she is careful and watching Sleep apnea 39947061 G47 .30 doing really well and wearing mask every night Edema of l ower extremity 608569453 R60.0 currently is doing ok no bad swelling [id number] Armin Hanson [facility] [address] [facility],[place] [address] 11/20/2022 13:59:23 11/20/2022 15:21:21 Active or passive immunization 825781123 Z23 Adult heal th examination 125409837 Z00.00 relates that she is doing ok but her low back is the most problem as the morning is especially bad overall seems to be sl better with moving and coping with her low back pain Type 2 bharat betes mellitus 00305156 E11.9 a1c is 5.5 prior 5.4 and was 5.5 !!!!!! 5.6 but was 6.2 was 5.4 !she has gained another 10 lbrecent eye exam good and has [place] [address] day 115 Hepatitis C screening 41 2856871 Z11.59 next lab Advance care planning 71 2492910 Z71.89 done Screening mammography 24 220032 Z12.31 needs [id number] Armin Hanson DO [facility] [address] [facility] [address] [place] [address] 03/27/2023 13:28:05 03/27/2023 14:37:58 Sleep apnea 22096888 G47.30 doing really well and wearing mask every night Hypertensive disorder 38 695672 I10 stable and doing ok but it has been elevated on occ but she is careful and watching Type 2 bharat betes mellitus 57677243 E11.9 a1c is 5.3 now!!!!!! was 5.5 prior 5.4 and was 5.5 !!!!!! 5.6 but was 6.2 was 5.4 !she has lost another 20 lbrecent eye exam good and has [place] [address] day 115 Hepatitis C screening 41 5249627 Z11.59 next lab Advance care planning 71 3905829 Z71.89 done Screening mammography 24 964318 Z12.31 needs Postviral cough 37834413 4 R05.3 will try netti pot or flonase if not helpful will get a cxr Type 2 bharat betes mellitus without complication 850179887 E11.9 doing fantastic [id number] Armin Hanson DO [facility] [address] [facility] [address],[place] [address] 07/03/2023 13:38:23 07/03/2023 14:33:32 Hypercholesterolemia 15567813 E78.00 LDL is 120 doing great with diet and exercise Diabetes mellitus 268450 09 E11.9 a1c is 5.9 Edema of l ower extremity 929272579 R60.0 currently is doing ok no bad swelling Hypertensive disorder 38 420906 I10 stable and doing ok but it has been elevated on occ but she is careful and watching [id number] Armin Hanson DO [facility] [address] [facility] [address],[place] [address] 09/21/2023 08:42:50 09/21/2023 11:14:17 Hypercholesterolemia 90103471 E78.00 LDL is 120 doing great with diet and exercise Hypertensive disorder 38 400689 I10 stable and doing ok but it has been elevated on occ but she is careful and watching Type 2 bharat betes mellitus 28054219 E11.9 a1c is 5.5 was 5.3 now!!!!!! was 5.5 prior 5.4 and was 5.5 !!!!!! 5.6 but was 6.2 was 5.4 !admits to having been not so good with diet and relates that she gained weightover all doing fine as evidenced by her a1c [id number] Armin Hanson DO [facility] [address] [facility], [place] [facility] [place] [address] 01/08/2024 13:44:11 01/08/2024 15:31:12 Type 2 diabetes mellitus without complication 671863830 E11.9 doing fantastic Hypercholesterolemia 136 18415 E78.00 LDL is 120 doing great with diet and exercise Hypertensive disorder 38 400398 I10 stable and doing ok but it has been elevated on occ but she is careful and watching Type 2 bharat betes mellitus 12035308 E11.9 a1c is 5.5 was 5.3 now!!!!!! was 5.5 prior 5.4 and was 5.5 !!!!!! 5.6 but was 6.2 was 5.4 !admits to having been not so good with diet and relates that she gained weightover all doing fine as evidenced by her a1c [id number] Armin Hanson DO [facility] [address] [facility],[place] [address] 01/23/2024 10:00:00 01/23/2024 14:05:41 Depression screening 104198915 Z13.31 Neg Screening Paroxysmal atrial fibrillation 591653178 I48.0 will start carvedilol and eliquis stop the asawill have her see cardiologi st [id number] Armin Hanson DO [facility] [address] [facility],[place] [address] 02/13/2024 10:46:17 02/13/2024 12:23:11 Renewal of prescription [id number] Z76.0 utd Hypertensive disorder 38 193516 I10 stable and doing ok but it has been elevated on occ but she is careful and watching Depression screening 171 171692 Z13.31 Neg Screening Paroxysmal atrial fibrillation 555809951 I48.0 now in nsr !!!!! doing great and tolerating the metoprolol and xareltowe will cont she has cardiology appt but not until sept a devan feng Type 2 bharat betes mellitus without complication 458729093 E11.9 doing fantastic Edema of l ower extremity 527204679 R60.0 currently is doing ok no bad swelling [id number] DO [facility] [address] [facility],[place] [address] 07/18/2024 13:20:48 07/18/2024 14:13:32 Adult health examination 402973574 Z00.00 she relates that this last covid infection took a lot out her still slowly recovering relates that she is doing ok but her low back is the most problem as the morning is especially bad overall seems to be sl better with moving and coping with her low back pain Screening for cardiovascular system disease 582739501 Z13.6 Screening for malignant neoplasm of colon 195442305 Z12.11 had colonoscop y had one tubular adenoma Screening mammography 24 720816 Z12.31 needs Hypertensive disorder 38 875989 I10 stable and doing ok but it has been elevated on occ but she is careful and watching Type 2 bharat betes mellitus 17928255 E11.9 a1c is 5.8 was 5.3 now!!!!!! was 5.5 prior 5.4 and was 5.5 !!!!!! 5.6 but was 6.2 was 5.4 !admits to having been not so good with diet and relates that she gained weightover all doing fine as evidenced by her a1c Paroxysmal atrial fibrillation 478980562 I48.0 now in nsr !!!!! doing great and tolerating the metoprolol and xareltowe will cont she has cardiology appt but not until sept a devan feng Hypercholesterolemia 136 43511 E78.00 LDL is 120 doing great with diet and exercise [id number] DO [facility] [address] [place] [address] 10/28/2024 13:29:35 10/28/2024 14:28:35 Hypercholesterolemia 60496203 E78.00 LDL is 120 doing great with diet and exercise Diabetes mellitus 210022 09 E11.9 a1c is6.1 was 5.9 Hypertensive disorder 38 593118 I10 stable and doing ok but it has been elevated on occ but she is careful and watching Type 2 bharat betes mellitus without complication 908127332 E11.9 doing fantastic with negative retinal exam Edema of l ower extremity 762481240 R60.0 does have bit of edema [id number] Armin Hanson [facility] [address] [facility],[place] [address] 12/12/2024 08:31:35 12/12/2024 15:48:40 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 was 5.5 prior 5.4 and was 5.5 !!!!!! 5.6 but was 6.2 was 5.4 !admits to having been not so good with diet and relates that she gained weightover all doing fine as evidenced by her a1c Depression screening 171 567090 Z13.31 Neg Screening Sleep apnea 28956797 G47 .30 doing really well and wearing mask every night [id number] Armin Hanson [facility] [address] [place] [address] 05/12/2025 13:22:49 05/12/2025 13:57:10 Depression screening 221327082 Z13.31 Neg Screening Hypertensive disorder 38 231876 I10 stable and doing ok but it has been elevated on occ but she is careful and watching Diabetes mellitus 309268 09 E11.9 a1c is now down to 5.7 doing great with geeta oliveira 5.6 was 7 6.1 was 5.9 Venous varices 868299249 I83.90 4414259 needs vascular eval Health Concerns Section Related Observation LastModified by Organization Detai ls LastModified Time None Recorded Concern Status LastModified by Organization Details LastModified Time None Recorded Advance Directives Directive None Recorded Payers Insurance Date Sequence Insurance Name Policy Number Policy Macdonald Covered Member ID Macdonald Member ID Guarantor Name 07/23/2025 1 MEDICARE [place]: [employer] Bren S Renan [id number] Bren Renan 05/09/2025 2 [facility] INDEMNITY PLAN (INDEMNITY) [id number] Bren E Renan [id number] Bren Renan Notes Date Note Type Note Provider Name and Address Organization Details Recorded Time 4 text/htm l Medicare Annual Wellness VisitReported by PatientSocial/Behavioral HistoryFor physical activity, patient reportsdoes not exercise on a regular basis,decreased physical activity, anddeconditioned due to sedentary lifestylebut reportsgood physical condition. For diet and nutrition, patient reportshealthy diet. For fracture risk, patient reportsno history of fractures,no recent explained fracture,no sudden unexplained fractures, andno previous musculoskeletal injuries.Mental Status:For depression risk, patient reportsnever feels sad, empty, or tearful,no loss of interest in activities,no significant changes in weight,no sleep disturbances or insomnia,no agitation,no loss of energy,no feelings of worthlessness or guilt,no thoughts of suicide,no history of depression, andno history of mood disorders. For orientation, patient reportsno disorientation to time,no disorientation to date, andno disorientation to place. For concentration and memory, patient reportsno decreased concentrating ability,no memory lapses or loss, anddoes not forget words. For speech/motor difficulties, patient reportsno speech difficulties,no difficulty expressing formulated concepts,no difficulty with fine manipulative tasks,no difficulty writing/copying,no slowed reaction time, anddoes not knock things over when trying to pick them up.Functional AbilityFor hearing, patient reportsno loss of hearing. For vision, patient reportsno vision problems. For activities of daily living, patient reportsable to bathe with limited or no assistance,able to contol urination and bowels,able to dress with limited or no assistance,able to feed self with limited or no assistance,able to get out of chair or bed with limited or no assistance,able to groom with limited or no assistance, andable to toilet with limited or no assistance. For instrumental activities of daily living, patient reportsable to do house work with limited or no assistance,able to grocery shop with limited or no assistance,able to manage medications with limited or no assistance,able to manage money with limited or no assistance,able to prepare meals with limited or no assistance, andable to use the phone with limited or no assistance. For falls risk assessment, patient reportsno frequent falls while walking,no fall in the past year,no fall since last visit, andno dizziness/vertigo. For home safety, patient reportsno unsafe evelin hazzards,no unsafe stairs,no unsafe gas appliances,working smoke/co detectors,wears protective head gear for biking/high velocity,use of seatbelts,practicing 'safer sex',no vision or hearing loss while driving,no fire arms,has hand bars in the bathroom/shower, andgood lighting in the home.ROS as noted in the HPI Armin Hanson, DO [address] [facility], [place], [address], [facility] 07/18/2024 13:47:02 5 text/htm l Care Management - HypertensionReported by PatientIFor self care, patient reportsnot under emotional stress. For severity, patient reportssymptoms are improvinganddoes not interfere with daily activities. For associated symptoms, patient reportsno dizziness,no lightheadedness,no chest pain,no shortness of breath,no palpitations,no edema,no calf muscle cramps,no blurred vision,no confusion,no headaches, andno fatigue. Care Management - DiabetesReported by PatientIFor self care, patient reportsseeing eye doctor yearly for dilated eye exam,checking feet regularly,normal range of home blood sugars (in the low 100s), andno side effects from medications. For associated symptoms, patient reportssymptoms are usually well controlled,no fatigue,no dizziness,no excessive sweating,no headaches,no confusion,no increased thirst,no increased appetite,no increased urination,no blurred vision,no numbness of feet, andno calluses on feet.ROS as noted in the HPI here for rechk states has gained a little weight like 6 lbsa1c is 6.1 still fantastic has noted her sugars ran a little highknees are more sore too Armin Hanson, [address] [place], [address], [facility] 10/28/2024 13:57:02 5 text/htm l ROS as noted in the HPI patient is evaluated via tele/video assessment per [...] been fine since Armin Hanson DO [address] [place], [address], [facility] 12/12/2024 15:25:30 5 text/htm l Care Management - DiabetesReported by PatientHPIFor self care, patient reportsseeing eye doctor yearly for dilated eye exam,checking feet regularly,normal range of home blood sugars (in the low 100s), andno side effects from medications. For associated symptoms, patient reportssymptoms are usually well controlled,no fatigue,no dizziness,no excessive sweating,no headaches,no confusion,no increased thirst,no increased appetite,no increased urination,no blurred vision,no numbness of feet, andno calluses on feet.ROS as noted in the HPI here for rechk and is doing good relates that the carotid was [id number] is 5.6no afibno neuro sxwgt is same at 267worse issue is the knees and ankles knows the wgt is the culprit Armin Hanson DO [address] [place], [address], [facility] 01/27/2025 14:40:13 5 text/htm l Care Management - HypertensionReported by PatientHPIFor self care, patient reportsnot under emotional stress. For severity, patient reportssymptoms are improvinganddoes not interfere with daily activities. For associated symptoms, patient reportsno dizziness,no lightheadedness,no chest pain,no shortness of breath,no palpitations,no edema,no calf muscle cramps,no blurred vision,no confusion,no headaches, andno fatigue.has lost 20+ lbs since on zepbounddoing well no side effectsno cp no sob sleep is ok fairbowels bladder ok Care Management - DiabetesReported by PatientHPIFor self care, patient reportsseeing eye doctor yearly for dilated eye exam,checking feet regularly,normal range of home blood sugars (in the low 100s), andno side effects from medications. For associated symptoms, patient reportssymptoms are usually well controlled,no fatigue,no dizziness,no excessive sweating,no headaches,no confusion,no increased thirst,no increased appetite,no increased urination,no blurred vision,no numbness of feet, andno calluses on feet.ROS as noted in the HPI having some pain in the large varicosities of the thighs Armin Hanson, [address] [facility], [place], [address], [facility] 05/12/2025 13:55:52 OBGyn Episode No OBEpisode recorded.
--- OUTSIDE RECORDS SUMMARY | 2025-07-27 08:59 | XMS_ITS | Patient Health Record ---
Author Organization [facility] Address [address] [address] Care Team Providers Care Wringer And Setter Name Role Phone Armin Rueda Primary Care Provider Az Rubio Unavailable [phone] Allergies Allergen (clinical drug ingredient) Drug/Non Drug Allergy documented on EMR Reaction Allergy Type Onset Date Status Substance with 6-ylzypnr-3-methylgluta ryl-coenzyme A reductase inhibitor mechanism of action [...] Vitro; Duration: 90 Active OneTouch Delica Plus [id number] - TEST EVERY DAY; Duration: 90 Active [...] W/U Status Risk Notes Problem Sleep apnea (58757174) Sleep apnea (G47.30) Active confirmed Problem Obstructive sleep apnea syndrome (53021004) BRITTNEY (obstructive sleep apnea) (G47.33) Active confirmed Problem Atrial fibrillation (56683087) Atrial fibrillation (I48.91) Active confirmed Plan Of Treatment No Information Insurance Providers Payer Name Payer Address Payer Phone Subscriber Number Group Number Insured Name Patient Relationship to Insured Coverage Start Date Coverage End Date MEDICARE [address] [place], [place] [id number] Bren Urrutia Self - patient is the insured [facility] INDEMNITY PLAN [address] [place], [place] [id number] Bren Urrutia Self - patient is the insured Medical (General) History Medical History History ICD Code Atrial fibrillation I48.91 Sleep concern Z76.89 Diabetes Surgical History Surgery Date(Month/Year) left knee-torn meniscus 1999 Hospitalization History Reason Date(Month/Year) Child 1970 Child 1971 Child 1980
--- OUTSIDE RECORDS SUMMARY | 2025-07-27 09:00 | XMS_ITS | Clinical Summary ---
Author Organization [facility] Address [address] [place] [address] Phone Care Team Providers Care Sedimentationist Name Role Phone Armin Rueda Primary Care Provider [phone] Social History Tobacco Use Types Packs/Day Years [...] Insurance [place] [id number] [employer] MEDICARE SUPPLEMENT MEDICARE PART A & B [facility] MEDICARE SUPPLEMENT MEDICARE PART A & [place] [address] [place] [address] MEDICARE SUPPLEMENT MEDICARE PART A & B MEDICARE SUPPLEMENT MEDICARE PART A & B Member Subscriber Plan / Payer (Ef fective 2017-Present) Name:Bren Urrutia Member ID:[id number] Relation to Subscriber:Self Name:Bren Urrutia Subscriber ID:[id number] Payer ID:[id number] Group ID:Not on file Type:Medicare Address: [employer] [address] [employer] MEDICARE SUPPLEMENT MEDICARE PART A & B [employer] MEDICARE SUPPLEMENT MEDICARE PART A & B [employer] MEDICARE SUPPLEMENT MEDICARE PART A & B [employer] MEDICARE SUPPLEMENT MEDICARE PART A & B [facility] [employer] MEDICARE SUPPLEMENT Care Teams Sedimentationist Relationship Specialty Start Date End Date Armin Rueda DO PCP - General Internal Medicine 10/12/20 Additional Source Comments The information contained in this document represents components of the legal health record. It is not the complete legal health record.[facility]
--- OUTSIDE RECORDS SUMMARY | 2025-07-27 09:00 | XMS_ITS | Clinical Summary ---
Author Organization [facility] Address [address] [place] [address] Care Team Providers Care Department Clerk Name Role Phone Armin Rueda Primary Care Provider [phone] Allergies Active Allergy Reactions Criticality Noted Date Comments Elglkcn-Gki-Swd Reductase Inhibitors Muscle Pain,Other (see comments) Medium 04/26/2024 Pt states she gets sciatica pain down her legs Medications lisinopriL (PRINIVIL,ZESTR IL) 40 mg tablet Take 40 mg by mouth daily. Active metFORMIN (GLUCOPHAGE) 1,000 mg tablet Take 2,000 mg by mouth nightly. Active cetirizine (ZyrTEC) 10 mg capsule capsule Take by oral route. Active metoprolol tartrate (LOPRESSOR) 50 mg tablet Take 1 tablet by mouth 2 times daily. Active Xarelto 20 mg tablet TAKE 1 TABLET(20 MG) BY MOUTH DAILY 90 tablet 3 5 Active Zepbound 10 mg/0.5 mL pen injector pen injector inject 10mg weekly 5 Active ezetimibe (ZETIA) 10 mg tablet Take 10 mg by mouth once a day. Active Ozempic 1 mg/dose (4 mg/3 mL) pen injector Inject 1 mg under the skin once a week. 07/06/20 25 Discontinued Active Problems Problem Noted Date Diagnosed Date Rheumatic fever 05/26/2024 Paroxysmal atrial fibrillation 01/23/2024 Type 2 diabetes mellitus without complication Sleep apnea 06/14/2021 Positive colorectal cancer screening using Colog uard test 09/08/2020 Spinal stenosis of lumbar region 12/24/2018 Hypercholesterolemia 08/27/2018 Hypertensive disorder 05/01/2018 Encounters Date Type Department Care Team Description 07/06/2025 11:20 AM EDT Follow-Up [facility] 4th floor Cardiology Medicine [address] [place] [address] [employer]: Nazia Hurst MD Paroxysmal atrial fibrillation (Primary Dx); Pure hypercholesterolemia; Essential hypertension 06/16/2025 9:20 AM EDT Office Visit [address] [address] Claribel Woodruff NP Primary osteoarthritis of left knee (Primary Dx) 06/10/2025 Orders Only [address] [address] Claribel Woodruff NP Left knee pain, unspecified chronicity (Primary Dx) 06/05/2025 Refill [facility] 4th floor Cardiology Medicine [address] [place] [id number] [employer]: Nazia Hurst MD from Last 3 Months [...] Sign Reading Time Taken Comments Blood Pressure 157/80 07/06/2025 11:52 AM EDT Pulse 71 07/06/2025 11:52 AM EDT Temperature 36.8 C (98.2 F) 01/21/2024 6:09 PM EDT Respiratory Rate 17 07/06/2025 11:52 AM EDT Oxygen Saturation 98% 07/06/2025 11:52 AM EDT Inhaled Oxygen Concentration - - Weight 107 kg (235 lb 14.3 oz) 07/06/2025 11:52 AM EDT Height 172.7 cm (5' 8 ) 07/06/2025 11:52 AM EDT Body Mass Index 35.87 07/06/2025 11:52 AM EDT Plan of Treatment Upcoming Encounters Date Type Department Care Team (Late st Contact Info) Description 07/08/2026 8:00 AM EDT Follow-Up [facility] 4th floor Cardiology Medicine [address] [place] [address] [employer]: Tomasa Schwab, HUMAN RESOURCES OPERATIONS SPECIALIST [address] [place] [id number] Health Maintenance Due Date Last Done Comments Hepatitis C Screening 1950 Medicare AWV 1951 Ophthalmology Exam 1958 Osteoporosis Screening 1998 Zoster Vaccines (2 of 3) 11/11/2013 09/16/2013 RSV Vaccine (60+ years old and patients) (1 - 1-dose 75+ series) 2023 Hemoglobin A1C 12/27/2023 06/27/2023, 09/18, 09/28/2016, Additional history exists Urine Microalbumin 06/27/2024 06/27/2023 Alcohol/Substance Use Screening 09/17/2024 Depression Screening and Follow-Up 09/17/2024 Health Care Proxy Review 09/17/2024 Social Drivers of Health Annual Screening 09/17/2024 Basic Metabolic Panel 01/20/2025 01/21/2024 , 06/27/2023, 09/28/2016 COVID-19 Vaccine ( season) 2025 07/29/2022, 12/16/2021, 06/24/2021, Additional history exists Influenza Vaccine (#1) 2025 , 06/22/2022, 07/01/2021, Additional history exists DTaP,Tdap,and Td Vaccines (2 - Td or Tdap) 10/20/2025 10/20/2015 Colonoscopy 01/27/2026 01/27/2021, 01/15, 01/27/2021, Additional history exists Mammogram Discontinued 05/31/2007 Pneumococcal Vaccine: 50+ Years Completed 04/10/2017, 03/05/2015 Hepatitis B Vaccines Aged Out No long er eligible based on patient's age to complete this topic Procedures * Due to [place] [employer] law, this organization might not be sharing negative HIV tests. Procedure Name Priority Date/Time Associated Diagnosis Comments ECG 12-LEAD Routine 07/06/2025 11:50 AM EDT Paroxysmal atrial fibrillation XR KNEE 3 VW LEFT Routine 06/16/2025 9:5 1 AM EDT Left knee pain, unspecified chronicity XR KNEE AP/PA BILATERAL STANDING Routine 06/16/2025 9:51 AM EDT Left knee pain, unspecified chronicity BASIC METABOLIC PANEL STAT 01/21/2024 12:10 PM EDT COLONOSCOPY 01/27/2021 HEMOGLOBIN A1C Routine 09/28/2016 9:07 AM EST ROZINA BILATERAL SCREENING DIGITAL MAMMOGRAM Routine 05/31/2007 2:03 PM EDT from Last 3 Months or Most Recently Relevant to Health Maintenance Results * Due to [place] [employer] law, this organization might not be sharing negative HIV tests. * ECG 12 lead (07/06/2025 11:50 AM EDT) Ventricular Rate EKG 71 BPM MUSE EKG Atrial Rate 71 BPM MUSE EKG LA Interval 228 ms MUSE EKG QRS Interval 78 ms MUSE EKG QT Interval 378 ms MUSE EKG QTC Interval 410 ms MUSE EKG P [place] 44 degrees MUSE EKG R [place] 16 degrees MUSE EKG T Wave [place] 55 degrees MUSE EKG 07/06/2025 11:5 0 AM EDT 07/06/2025 6:33 PM EDT Impressions MUSE EKG - 07/06/2025 6:33 PM EDT SINUS RHYTHM WITH 1ST DEGREE A-V BLOCK OTHERWISE NORMAL ECG WHEN COMPARED WITH ECG OF 26-May-2024 10:26, CRITERIA FOR ANTEROSEPTAL ME ARE NO LONGER PRESENT Confirmed by Nazia Moore ([id number]) on 07/06/2025 6:33:09 PM Narrative Procedure Note Nazia Moore MD - 07/06/2025 IMPRESSION: SINUS RHYTHM WITH 1ST DEGREE A-V BLOCK OTHERWISE NORMAL ECG WHEN COMPARED WITH ECG OF 26-May-2024 10:26, CRITERIA FOR ANTEROSEPTAL ME ARE NO LONGER PRESENT Confirmed by Nazia Moore ([id number]) on 07/06/2025 6:33:09 PM us Nazia Moore MD ECG ORDERABLES Final Result MUSE EKG * XR Knee 3 vw Left (06/16/2025 9:51 AM EDT) Anatomical Region Laterality Modality Lower Extremities, Knee Left Computed Radiography 06/16/2025 5:38 PM EDT Impressions 06/16/2025 5:40 PM EDT FINDINGS/IMPRESSION: Left knee: No radiographic findings of acute fracture or dislocation. Moderate to severe medial compartment osteoarthritis. Mild to moderate lateral and patellofemoral compartments osteoarthritis. Effusion. Suprapatellar enthesophyte. Soft tissue swelling. AP radiograph of the right knee demonstrates moderate medial compartment osteoarthritis. If this radiology report contains a blank impression section, it is an incomplete radiology report. Please contact the interpreting radiologist or applicable radiology division as soon as possible to obtain the completed interpretation. Workstation ID: [id number] Narrative 06/16/2025 5:40 PM EDT COMPARISON: None. Resulting Agency Comment [id number] Procedure Note Sergio Purdy MD - 06/16/2025 COMPARISON: None. IMPRESSION: FINDINGS/IMPRESSION: Left knee: No radiographic findings of acute fracture or dislocation.Moderate to severe medial compartment osteoarthritis. Mild to moderatelateral and patellofemoral compartments osteoarthritis. Effusion.Suprapatellar enthesophyte. Soft tissue swelling. AP radiograph of the right knee demonstrates moderate medial compartmentosteoarthritis. If this radiology report contains a blank impression section, it is anincomplete radiology report. Please contact the interpreting radiologistor applicable radiology division as soon as possible to obtain thecompleted interpretation. Workstation ID: [id number] [facility]ruff HUMAN RESOURCES OPERATIONS SPECIALIST IMG XR PROCEDURES Final Result * XR Knee AP/PA Bilateral Standing (06/16/2025 9:51 AM EDT) Anatomical Region Laterality Modality Lower Extremities, Knee Bilateral Computed Radiography 06/16/2025 5:38 PM EDT Impressions 06/16/2025 5:40 PM EDT FINDINGS/IMPRESSION: Left knee: No radiographic findings of acute fracture or dislocation. Moderate to severe medial compartment osteoarthritis. Mild to moderate lateral and patellofemoral compartments osteoarthritis. Effusion. Suprapatellar enthesophyte. Soft tissue swelling. AP radiograph of the right knee demonstrates moderate medial compartment osteoarthritis. If this radiology report contains a blank impression section, it is an incomplete radiology report. Please contact the interpreting radiologist or applicable radiology division as soon as possible to obtain the completed interpretation. Workstation ID: [id number] Narrative 06/16/2025 5:40 PM EDT COMPARISON: None. Resulting Agency Comment [id number] Procedure Note Sergio Purdy MD - 06/16/2025 COMPARISON: None. IMPRESSION: FINDINGS/IMPRESSION: Left knee: No radiographic findings of acute fracture or dislocation.Moderate to severe medial compartment osteoarthritis. Mild to moderatelateral and patellofemoral compartments osteoarthritis. Effusion.Suprapatellar enthesophyte. Soft tissue swelling. AP radiograph of the right knee demonstrates moderate medial compartmentosteoarthritis. If this radiology report contains a blank impression section, it is anincomplete radiology report. Please contact the interpreting radiologistor applicable radiology division as soon as possible to obtain thecompleted interpretation. Workstation ID: [id number] us Claribeltim AndradeRanjan HUMAN RESOURCES OPERATIONS SPECIALIST IMG XR PROCEDURES Final Result * (ABNORMAL) Basic Metabolic Panel (01/21/2024 12:10 PM EDT) NA 140 135 - 145 mmol/L 01/21/2024 1:03 PM EDT [facility] K 4.1 3.5 - 5.3 mmol/L 01/21/2024 1:03 PM EDT [facility] Cl 107 97 - 110 mmol/L 01/21/2024 1:03 PM EDT [facility] CO2 25 24 - 32 mmol/L 01/21/2024 1:03 PM EDT [facility] BUN 19 7 - 23 mg/dL 01/21/2024 1:03 PM EDT [facility] Creatinine 1.25(H) 0.50 - 1.20 mg/dL 01/21/2024 1:03 PM EDT [facility] Glucose 147(H) 70 - 99 mg/dL 01/21/2024 1:03 PM EDT [facility] Calcium 8.6(L) 8.7 - 10.7 mg/dL 01/21/2024 1:03 PM EDT [facility] Anion Gap 8 5 - 15 01/21/2024 1:03 PM EDT [facility] eGFR 45(L) >=60 mL/min/1 .73m2 01/21/2024 1:03 PM EDT [facility] Comment:The estimated glomer ular filtration rate (eGFR) is calculated using a new formula developed by the NKF-ASN task force to eliminate race-based correction factors. The new formula uses serum/plasma creatinine, age, and gender to determine eGFR. A value below 60mls/min might indicate kidney disease and will be flagged. For additional information, see Quinton callaway al, Am J Kidney Dis. 2021;79(2):268- 288, A Unifying Approach for GFR estimation: Recommendations of the NKF-ASN Task Force on Reassessing the Inclusion of Race in Diagnosing Kidney Disease . Blood Structure of peripheral vein / Unknown Venipuncture / Unknown 01/21/2024 12:10 PM EDT 01/21/2024 12:24 PM EDT us Protocol Unv Adult Treatment LAB BLOOD ORDERA BLES Final Result [facility] [address] [place] [address], [place] * COLONOSCOPY (01/27/2021) Narrative Procedure Note Roberto Garcia MD - 01/27/2021 12:33 PM EDT Gastroenterology Patient Name: Bren Urrutia Procedure Date: 01/27/2021 12:33 PM Date of : 1950 Admit Type: Outpatient Age: 70 Room: [place] [id number] Gender: Female Note Status: Finalized Attending MD: [...] procedure by the physician, the nurse, the cloth desizing range tender and the commercial service technician. Theprocedure was verified in the procedure [...] 9:07 AM EST) Hemoglobin A1C 11.4(H) <5.7 [facility] Comment: UNITS OF MEASURE: % of [...] for children. eAG (MG/DL) 280 () (calc) [facility] eAG (MMOL/L) 15.5 () (calc) [facility] 09/28/2016 9:07 AM EST 09/28/2016 10:36 AM EST Armin Rueda LAB BLOOD ORDERABLES Final Resul t CORTEZ RODRIGEZ [address] [facility] [address], [place] [address], [place] * ROZINA Bilateral Screening Digital Mammogram [...] ASSESSMENT - BENIGN END OF IMPRESSION Armin [facility] IM BI PROCEDURES Final Result from Last 3 Months or Most Recently Relevant to Health Maintenance Insurance MEDICARE [facility] Advance Directives Documents on File Type Date Recorded Patient Territory Manager General Sales Expl anation Advance Directive 07/08/2010 12:00 AM sf Medical Dec Making (Adv.Dir) * Full Code (Latest Code Status on File) Date Activated Date Inactivated Comments 01/27/2021 2:00 PM 01/27/2021 4:52 PM Care Teams Department Clerk Relationship Specialty Start Date End Date Armin Rueda [address] [place] [id number] PCP - General 04/05/17
[2025-07-27 13:30] LABS: MANUAL DIFF FLAG NO
[2025-07-27 13:44] LABS: Hematocrit 37.2 % (37.0-47.0); Hemoglobin 12.4 g/dl (12.0-16.0); Imm Gran Abs Auto 0.01 X10*3/uL (0.00-0.03); Imm Gran Pct Auto 0.2 % (0.0-0.4); Lymphocytes Absolute Auto 1.6 X10*3/uL (1.2-4.9); Mean Corpuscular HGB Conc 33.3 g/dl (31.0-35.0); Mean Corpuscular Hemoglobin 31.7 pg (27.0-33.0); Mean Corpuscular Volume 95.1 fL (80.0-98.0); NRBC Abs Auto 0.000 X10*3/uL (0.0-0.012); NRBC Pct Auto 0.0 /100WBC (0.0-0.2); Platelet Count 212 X10*3/uL (160-400); Red Blood Count 3.91 X10*6/uL (4.20-5.50); White Blood Count 5.6 X10*3/uL (4.8-10.8)
[2025-07-27 14:38] LABS: Alanine Aminotransferase 16 U/L (0-31); Albumin Level 4.1 g/dL (3.5-5.0); Alkaline Phosphatase 52 U/L (39-117); Anion Gap 11 (12-20); Aspartate Amino Transferase 28 U/L (5-31); Blood Urea Nitrogen 12 mg/dL (9-16); Calcium 9.4 mg/dL (8.4-10.2); Carbon Dioxide 22 mmol/L (22-29); Chloride 111 mmol/L (96-108); Cholesterol 157 mg/dL (<200); Estimated Glomerular Filt Rate 58; HDL Cholesterol 45 mg/dL (>40); Potassium 4.1 mmol/L (3.3-5.1); Sodium 140 mmol/L (135-145); Total Protein 6.7 g/dL (6.5-8.0); Triglycerides 94 mg/dL (<150)
[2025-07-27 14:45] LABS: Hemoglobin A1C 71.7256 umol/L; Total Hemoglobin (HGBA1C) 2121.8396 umol/L
== END 2025-07-27 08:38 | disposition home or self-care (01) ==
LOC: HO.MANLDS 08:37
PROVIDERS: Visit Provider Internal Medicine
DX: E11.9 Type 2 diabetes mellitus without complications (principal); E78.00 Pure hypercholesterolemia, unspecified
CPT/HCPCS: 36415; 80053; 80061; 83036; 85025